=== PATIENT | male | born 1940 | race Caucasian/White ===

== ENCOUNTER 2020-04-30 10:59 | Observation (INO) ==
--- OUTSIDE RECORDS SUMMARY | 2020-04-30 11:02 | External Medical Summary | Continuity of Care Document ---
:1940 Author Name Lev Gallagher, Provider Address Unavailable Unavailable , Care Team Providers Name Role Phone Ernie Santana PA-C Unavailable [email or web address] Bakari MONDRAGON Unavailable [email or web address] Nayeli JONES Unavailable [email or web address] Marlin Lainez M.D. Unavailable [email or web address] [email or web address] Kenroy LOAIZA Unavailable Unavailable Unavailable Unavailable Unavailable Problems Dizziness (780.4) (R42) Gout (274.9) (M10.9) Iron deficiency (280.9) (E61.1) Anemia (285.9) (D64.9) Abnormal CT scan (793.99) (R93.89) Chronic obstructive pulmonary disease (496) (J44.9) Hip pain, left (719.45) (M25.552) Vitamin D deficiency (268.9) (E55.9) Abnormal laboratory test (796.4) (R89.9) Carotid bruit (785.9) (R09.89) Dermatitis (692.9) (L30.9) LVH (left ventricular hypertrophy) (429.3) (I51.7) Erectile dysfunction (607.84) (N52.9) Vision problems (V41.0) (H54.7) Headache (784.0) (R51) Osteoarthrosis (715.90) (M19.90) Esophageal reflux (530.81) (K21.9) Hyperglycemia (790.29) (R73.9) Hypertension (401.9) (I10) Dyslipidemia (272.4) (E78.5) 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 ALANNA Villegas Start: 22-Nov-2014 Quantity: 30 Refills: 5 cloNIDine HCl - 0.1 MG Oral Tablet; Take 1 tablet twic e a day. ALANNA Villegas Start: 03-Jul-2016 Quantity: 90 Refills: 3 Omeprazole 40 MG Oral Capsule Delayed Release; TAKE 1 CAPSULE Daily ALANNA Villegas Quantity: 90 Refills: 3 Furosemide 20 MG Oral Tablet; take 1 tablet by mouth e very other day GIBRAN Santana Start: 19-Mar-2018 Quantity: 30 Refills: 0 Aspirin 81 81 MG Oral Tablet Delayed Release; TAKE 2 TABLET Daily Refills: 0 dilTIAZem HCl ER Coated Beads 120 MG Ora l Capsule Extended Release 24 Hour; TAKE 1 CAPSULE DAILY. Elliott Lainez Start: 24-Jun-2017 Quantity: 30 Refills: 11 Advair Diskus 500-50 MCG/DOSE Inhalation Aerosol Powder Breath Activated; INHALE 1 PUFFS Twice daily KAREN Tyler 14 Inhaler Pack Quantity: 1 Refills: 5 Ipratropium-Albuterol 0.5-2.5 (3) MG/3ML Inhalation Solution; USE 1 VIAL IN NEBULIZER 4 TIMES DAILY KARNE Tyler Start: 01-Mar-2013 Quantity: 360 3 ML Plas Cont Refills: 5 Nitroglycerin 0.4 MG Sublingual Tablet S ublingual; DISSOLVE 1 TABLET UNDER THE TONGUE NEEDED FOR CHEST PAIN. ALANNA Villegas Start: 14-May-2012 Quantity: 25 Refills: 5 traMADol HCl - 50 MG Oral Tablet; TAKE 1 -2 TABLETS EVERY 12 HOURS NEEDED FOR PAIN. ALANNA Villegas Quantity: 120 Refills: 0 Diclofenac Sodium 1 % Transdermal Gel; APPLY 4 GRAMS T WICE A DAY ALANNA Villegas Start: 06-Aug-2015 Quantity: 1 100 GM Tube Refills: 5 Atorvastatin Calcium 80 MG Oral Tablet; TAKE 1 TABLET AT BEDTIME. ALANNA Villegas Start: 28-Jun-2015 Quantity: 90 Refills: 1 Allopurinol 300 MG Oral Tablet; Take 1 tablet by mouth daily. Elliott Lainez Start: 24-Jun-2017 Quantity: 30 Refills: 0 Triamcinolone Acetonide 0.025 % External Cream; APPLY SPARINGLY TO AFFECTED AREA(S) 2 TO 3 TIMES DAILY. ALANNA Villegas Start: 30-Oct-2014 Quantity: 2 15 GM Tube Refills: 3 Procedures History of Cath Stent Placement Status: Completed History of Tonsillectomy Status: Complet ed History of Back Surgery Status: Complete d History of Foot Surgery Status: Complete d History of Cath Stent 1 Mid-Right Coronary Artery Status: Completed History of Surgery For Abdominal Aortic Aneurysm Status: Completed Immunizations Fluzone High-Dose Intramuscular Suspension On: 03-Jul-2015 1 2:24 Lot #: [id number], [employer] Fluzone High-Dose Intramuscular Suspension On: 05-Aug-2016 1 3:47 Lot #: [id number], [employer]FI PA[employer]UR Fluzone High-Dose Intramuscular Suspension On: 07-Jul-2017 1 3:15 Lot #: [id number], [employer] Family History Brother Family history of Coronary Artery Disease Status: Active Family history of Acute Myocardial Infarction (V17.3) Status : Active Mother Family history of Carcinoma Of The Stomach (V16.0) Status: A ctive Father Family history of Stroke Syndrome (V17.1) Status: Active Social History - Smoking Status Ex-smoker Plan of Treatment Planned Observations Planned Goals not documented Results No Known Results Results not documented Encounters Appointment; Clifton Lainez M.D. 13-Jul-2018 13:00 Encounter Diagnosis: Problem not documented Appointment; Chele Villegas PA-C 24-May-2018 13:30 Encounter Diagnosis: Problem not documented
--- OUTSIDE RECORDS SUMMARY | 2020-04-30 11:03 | External Medical Summary | Continuity of Care Document ---
:1940 Author Name Lev Gallagher, Provider Address Unavailable Unavailable , Care Team Providers Name Role Phone Ernie Santana PA-C Unavailable [email or web address] Bakari MONDRAGON Unavailable [email or web address] Nayeli JONES Unavailable [email or web address] Marlin Lainez M.D. Unavailable [email or web address] Kenroy LOAIZA Unavailable Unavailable Unavailable Unavailable Unavailable Problems Esophageal reflux (530.81) (K21.9) Osteoarthrosis (715.90) (M19.90) Gout (274.9) (M10.9) Headache (784.0) (R51) Vision problems (V41.0) (H54.7) Erectile dysfunction (607.84) (N52.9) LVH (left ventricular hypertrophy) (429.3) (I51.7) Dizziness (780.4) (R42) Dermatitis (692.9) (L30.9) Carotid bruit (785.9) (R09.89) Abnormal laboratory test (796.4) (R89.9) Vitamin D deficiency (268.9) (E55.9) Hip pain, left (719.45) (M25.552) CAD (coronary artery disease) (414.00) (I25.10) 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 Elliott Lainez Start: 24-Jun-2017 Quantity: 30 Refills: 11 Furosemide 20 MG Oral Tablet; take 1 tablet by mouth e very other day GIBRAN Santana Start: 19-Mar-2018 Quantity: 30 Refills: 0 Advair Diskus 500-50 MCG/DOSE Inhalation Aerosol Powder Breath Activated; INHALE 1 PUFFS Twice daily KAREN Tyler 14 Inhaler Pack Quantity: 1 Refills: 5 traMADol HCl - 50 MG Oral Tablet; TAKE 1 -2 TABLETS EVERY 12 HOURS NEEDED FOR PAIN. ALANNA Villegas Quantity: 120 Refills: 0 Meclizine HCl - 25 MG Oral Tablet; TAKE 1/2 TO 1 TABLET BY MOUTH EVERY 6 HOURS NEEDED ALANNA Villegas Start: 21-Aug-2015 Quantity: 30 Refills: 0 Omeprazole 40 MG Oral Capsule Delayed Release; TAKE 1 CAPSULE Daily ALANNA Villegas Quantity: 90 Refills: 3 Nitroglycerin 0.4 MG Sublingual Tablet S ublingual; DISSOLVE 1 TABLET UNDER THE TONGUE NEEDED FOR CHEST PAIN. ALANNA Villegas Start: 14-May-2012 Quantity: 25 Refills: 5 Ipratropium-Albuterol 0.5-2.5 (3) MG/3ML Inhalation Solution; USE 1 VIAL IN NEBULIZER 4 TIMES DAILY KAREN Tyler Start: 01-Mar-2013 Quantity: 360 3 ML Plas Cont Refills: 5 Triamcinolone Acetonide 0.025 % External Cream; APPLY SPARINGLY TO AFFECTED AREA(S) 2 TO 3 TIMES DAILY. ALANNA Villegas Start: 30-Oct-2014 Quantity: 2 15 GM Tube Refills: 3 Vitamin D 1000 UNIT TABS; TAKE 1 TABLET DAILY. ALANNA Villegas Start: 22-Nov-2014 Quantity: 30 Refills: 5 Atorvastatin Calcium 80 MG Oral Tablet; TAKE 1 TABLET AT BEDTIME. ALANNA Villegas Start: 28-Jun-2015 Quantity: 90 Refills: 1 Allopurinol 300 MG Oral Tablet; Take 1 tablet by mouth daily. Elliott Lainez Start: 24-Jun-2017 Quantity: 30 Refills: 0 Diclofenac Sodium 1 % Transdermal Gel; APPLY 4 GRAMS T WICE A DAY ALANNA Villegas Start: 06-Aug-2015 Quantity: 1 100 GM Tube Refills: 5 cloNIDine HCl - 0.1 MG Oral Tablet; Take 1 tablet twic e a day. ALANNA Villegas Start: 03-Jul-2016 Quantity: 90 Refills: 3 Procedures History of Cath Stent Placement Status: Completed History of Tonsillectomy Status: Complet ed History of Back Surgery Status: Complete d History of Foot Surgery Status: Complete d History of Cath Stent 1 Mid-Right Coronary Artery Status: Completed History of Surgery For Abdominal Aortic Aneurysm Status: Completed Immunizations Fluzone High-Dose Intramuscular Suspension On: 03-Jul-2015 1 2:24 Lot #: [id number], [employer] Fluzone High-Dose Intramuscular Suspension On: 05-Aug-2016 1 3:47 Lot #: [id number], [employer] PA[employer]UR Fluzone High-Dose Intramuscular Suspension On: 07-Jul-2017 1 3:15 Lot #: [id number], [employer] PA[employer]UR Family History Brother Family history [...]
[2020-04-30] MEDS ORDERED: ASPIRIN CHEW 324 MG PO STA (11:18)
[2020-04-30 11:34] LABS: Basophils # (auto) 0.02 K/uL (0-0.2); Basophils % (auto) 0.3 %; Eosinophils # (auto) 0.15 K/uL (0-0.5); Eosinophils % (auto) 2.3 %; Hematocrit (blood only) 45.4 % (42-52); Hemoglobin 14.2 g/dL (14.0-18.0); Immature Granulocytes # (auto) 0.05 K/uL (0.00-0.02); Immature Granulocytes % (auto) 0.8 %; Lymphocytes # (auto) 1.03 K/uL (1.2-3.4); Lymphocytes % (auto) 15.8 %; Mean Corpuscular Hemoglobin 26.6 pg (25-34); Mean Corpuscular Hgb Conc 31.3 g/dL (32-36); Mean Corpuscular Volume 85.2 fL (80-100); Mean Platelet Volume 10.4 fL (7.4-10.4); Monocytes # (auto) 0.59 K/uL (0.11-0.59); Neutrophils # (auto) 4.68 K/uL (1.4-6.5); Neutrophils % (auto) 71.8 %; Platelet Count 249 K/uL (130-400); RDW Coefficient of Variation 14.2 % (11.5-14.5); RDW Standard Deviation 44.6 fL (36.4-46.3); Red Blood Count 5.33 M/uL (4.7-6.1); White Blood Count 6.52 K/uL (4.8-10.8)
--- NOTE | 2020-04-30 11:35 | XRay Report ---
SINGLE VIEW CHEST CLINICAL HISTORY: Atypical chest pain. FINDINGS: 2 AP, portable, upright chest radiographs are compared to study dated 12/11/2015. The examin ation is degraded by portable technique and patient rotation. The heart is top normal for projection noting atherosclerotic calcification of the thoracic aorta. There are scattered calcified granuloma. Mild scarring/atelectasis is seen at the lung bases. No airspace consolidation or large pleural effus ion is identified. No pneumothorax is seen. The skeletal structures are osteopenic. The bony thorax i s grossly intact. IMPRESSION: No active disease in the chest. ACT 112: Negative or not required by law. Electronically signed by: Rusty Malik M.D. 04/30/2020 11:34 AM
[2020-04-30 11:48] LABS: INR 1.1 (0.9-1.1); Partial Thromboplastin Ratio 1.1; Partial Thromboplastin Time 31.5 Seconds (21.0-31.0); Prothrombin Time 11.6 Seconds (9.0-12.0)
--- NOTE | 2020-04-30 11:48 | CT Scan Report ---
CT SCAN OF THE BRAIN WITHOUT IV CONTRAST CLINICAL HISTORY: Generalized weakness. COMPARISON STUDY: CT of the brain dated 01/09/2016. TECHNIQUE: Unenhanced axial CT scan of the brain is performed from the vertex to the skull base. A do se lowering technique was utilized adhering to the principles of ALARA. CT DOSE: 537.48 mGy.cm FINDINGS: Brain parenchyma: There are age-related involutional changes noting moderate patchy subcortical and periventricular microangiopathic change. There is no hemorrhage, mass effect, or evidence of acute te rritorial ischemia by CT criteria. A small chronic lacunar infarct is noted in the right cerebellar h emisphere. Cabrera-white matter differentiation is preserved. No extra-axial fluid collection is seen. Ventricles, sulci, cisterns: Prominent secondary to involutional change. Intracranial vasculature: There is atherosclerotic calcification of the cavernous carotid and vertebr al arteries. Calvarium: Unremarkable. Sinuses and mastoids: The visualized paranasal sinuses are clear. The mastoid air cells are well pneu matized. Orbits: The bony orbits are grossly intact. There are bilateral ocular lens implants. Small metallic foreign bodies are seen in the region of the right orbit. IMPRESSION: There is no hemorrhage, mass effect, or evidence of acute territorial ischemia by CT giulia walker. ACT 112: Negative or not required by law. Electronically signed by: Rusty Malik M.D. 04/30/2020 11:47 AM
[2020-04-30 11:56] LABS: Alanine Aminotransferase 27 U/L (12-78); Albumin Level 4.1 gm/dl (3.4-5.0); Aspartate Aminotransferase 25 U/L (15-37); BUN Creatinine Ratio 11.2 (10-20); Blood Urea Nitrogen 13 mg/dl (7-18); Calcium 8.5 mg/dl (8.5-10.1); Carbon Dioxide 29 mmol/L (21-32); Chloride 104 mmol/L (98-107); Creatinine Clr Calc Pharmacy 55.8 ml/min; Est GFR (African American) 68.6; Est GFR (Non-African American) 59.2; Glucose 119 mg/dl (70-99); Lipase 77 U/L (73-393); Sodium 140 mmol/L (136-145)
[2020-04-30 12:01] LABS: Albumin Globulin Ratio 1.1 (0.9-2); Alkaline Phosphatase 187 U/L (45-117); Bilirubin,Total 0.6 mg/dl (0.2-1); Globulin 3.8 gm/dl (2.5-4.0); Total Protein 7.9 gm/dl (6.4-8.2); Troponin I < 0.015 ng/ml (0-0.045)
--- NOTE | 2020-04-30 12:10 | Emergency Department Note ---
Impression & Plan Chest pain, STOREY (dyspnea on exertion), Weakness ED Provider Note NAME: ION FU SR AGE: 79 SEX: M : 1940 ARRIVES VIA: Walk-In INFORMANT: Patient, ED PROVIDER(S): Mike Hardwick DO CHIEF COMPLAINT: Shortness of breath HPI: The patient is a 79-year-old male who presented to the emergency department for an evaluation of difficulty breathing. The patient states that he was having symptoms over the weekend. He was doing some yard work 2 days ago. He states he did not have any symptoms at that time. Yesterday he started having episodes of shortness of breath. Today while he was ambulating he started having dyspnea on exertion. The patient had similar episodes in the past which were related to acute coronary syndrome. He denies having any nausea or vomiting. He states he is also been having lightheadedness. The patient did not have any specific chest pain. The patient states he has not been seen by his primary care physician but instead came to the emergency department for further evaluation. He states his symptoms are significantly improved at rest. ROS: See above HPI for pertinent positives & negatives. A total of 10 systems reviewed and were otherwise negative. PAST MEDICAL HISTORY: See Below PAST SURGICAL HISTORY: See Below FAMILY HISTORY: See Below SOCIAL HISTORY: See Below HOME MEDICATIONS: See Below ALLERGIES: See Below VITALS: See Below PHYSICAL EXAMINATION: GENERAL: Patient is awake alert in no acute distress patient is resting comfortably and showing no signs of anxiety EYES: The conjunctivae are clear. The pupils are round and reactive. EARS, NOSE, MOUTH AND THROAT: The nose is without any evidence of any deformity. NECK: The neck is nontender and supple. RESPIRATORY: Diminished breath sounds are noted in the left lung field. There was no tachypnea or conversational dyspnea. CARDIOVASCULAR: Regular rate and rhythm was noted to auscultation. Systolic murmur was suggested. GASTROINTESTINAL: The abdomen is soft. Abdomen is nontender. MUSCULOSKELETAL/EXTREMITIES: There is no evidence of gross deformity full range of motion is noted in the hips and shoulders. SKIN: There is no obvious evidence of any rash. Pedal edema was noted bi laterally. NEUROLOGIC: Patient is awake alert and oriented x3. Strength was symmetric. There is no facial droop. MEDICAL DECISION MAKING: The patient is a 79-year-old male who presented to the emergency department with a family member for an evaluation of shortness of breath. The patient has been complaining of dyspnea on exertion as well as weakness. The patient has had similar episodes in the past which were related to his coronary artery disease. I discussed the patient's laboratory and radiographic studies with him. I also discussed the limitations of the emergency department work-up for chest pain with him. Ultimately given the patient's presentation I feel he may be a candidate for further inpatient management and work-up for possible acute coronary syndrome. For this reason I will discuss his case with the on-call [facility] group. The patient was treated with aspirin. Upon reevaluation he was asymptomatic. Triage Nursing notes reviewed. Prior medical records reviewed Vital Signs: reviewed and remarkable for elevated blood pressure. Differential diagnosis: Cardiac ischemia, aortic dissection, pulmonary embolism, pneumothorax, pneumonia, pericarditis, myocarditis, esophageal rupture, GERD, cholecystitis, pancreatitis, musculoskeletal, as well as other pathologies. ER treatment provided: See below Diagnostics interpreted by me: ECG: EKG was obtained in the emergency department. My interpretation is sinus bradycardia 53 bpm. There is no ectopy. Left bundle branch block pattern was suggested. There was inferior and low lateral ST segment abnormalities noted. This was compared to a tracing from December 11, 2015. No significant changes were noted. Cardiac Monitoring: An order was placed for continuous cardiac monitoring. The monitor shows a rate of 55 bpm with sinus cardia rhythm. Laboratory studies: [As stated above and show below.] Imaging studies: [See below] Consultation(s): 1225: Dr. Nolasco with [facility] was notified about the patient. Past Med/Surg History Medical History History of MN (myocardial infarction) Vertigo Surgical History History of back surgery History of intravascular stent placement Social History Smoking Status: Never smoker Feels Safe at Home: Yes Allergies Allergies Allergy/AdvReac Type Severity Reaction Status Date / Time No Known Allergies Allergy Unknown Verified 04/30/20 11:54 Home Meds Home Medications Medication Instructions Recorded Confirmed atorvastatin 80 mg PO HS 04/30/20 04/30/20 diltiazem HCl 120 mg PO HS 04/30/20 04/30/20 furosemide 20 mg PO Q2D 04/30/20 04/30/20 metoprolol tartrate 25 mg PO BID 04/30/20 04/30/20 omeprazole 40 mg PO HS 04/30/20 04/30/20 tamsulosin 0.4 mg PO QAM 04/30/20 04/30/20 tramadol 50 mg PO Q6H PRN 04/30/20 04/30/20 Previous Rx's Medication Instructions Recorded ipratropium 0.5 mg-albuterol 3 mg 3 ml INH QID PRN #180 ml 02/01/20 (2.5 mg base)/3 mL nebulization soln Results & Data (ED) Vital Signs Vital Signs - 24 hr 04/30/20 11:03 04/30/20 11:19 04/30/20 11:27 Temperature 36.6 C Temperature Source Oral Pulse Rate 60 57 L 59 L Pulse Rate from SpO2 Sensor 58 L Respiratory Rate 18 17 17 Blood Pressure 172/90 H 168/93 H Blood Pressure Mean 117 101 Pulse Oximetry 97 97 96 Oxygen Delivery Method Room Air Room Air Room Air Sepsis Recent Fever Within 48 Hours No Sepsis New/Unexplained Change in Mental Status No Sepsis Action Taken by Nursing No Action Required 04/30/20 11:30 04/30/20 11:32 04/30/20 12:00 Temperature Temperature Source Pulse Rate 53 L 56 L 53 L Pulse Rate from SpO2 Sensor 53 L 56 L 53 L Respiratory Rate 18 20 15 Blood Pressure 174/81 H 170/83 H Blood Pressure Mean 128 105 Pulse Oximetry 97 98 96 Oxygen Delivery Method Room Air Room Air Room Air Sepsis Recent Fever Within 48 Hours Sepsis New/Unexplained Change in Mental Status Sepsis Action Taken by Residential Medications Current Medication List: was personally reviewed by me Laboratory Data Attestation: I reviewed the patient's lab results. Result diagrams: 04/30/20 11:23 04/30/20 11:23 Lab Results 04/30/20 04/30/20 04/30/20 Range/Units 11:23 11:23 11:23 WBC 6.52 (4.8-10.8) K/uL RBC 5.33 (4.7-6.1) M/uL Hgb 14.2 (14.0-18.0) g/dL Hct 45.4 (42-52) % MCV 85.2 (80-100) fL MCH 26.6 (25-34) pg MCHC 31.3 L (32-36) g/dL RDW Std Deviation 44.6 (36.4-46.3) fL RDW Coeff of Gibson 14.2 (11.5-14.5) % Plt Count 249 (130-400) K/uL MPV 10.4 (7.4-10.4) fL Immature Gran % (Auto) 0.8 % Neut % (Auto) 71.8 % Lymph % (Auto) 15.8 % [place] % (Auto) 9.0 % Eos % (Auto) 2.3 % Baso % (Auto) 0.3 % Neut # (Auto) 4.68 (1.4-6.5) K/uL Lymph # (Auto) 1.03 L (1.2-3.4) K/uL [place] # (Auto) 0.59 (0.11-0.59) K/uL Eos # (Auto) 0.15 (0-0.5) K/uL Baso # (Auto) 0.02 (0-0.2) K/uL Immature Gran # (Auto) 0.05 H (0.00-0.02) K/uL PT 11.6 (9.0-12.0) Seconds INR 1.1 (0.9-1.1) APTT 31.5 H (21.0-31.0) Seconds PTT Ratio 1.1 Sodium 140 (136-145) mmol/L Potassium 4.0 (3.5-5.1) mmol/L Chloride 104 (98-107) mmol/L Carbon Dioxide 29 (21-32) mmol/L Anion Gap 7.0 (3-11) BUN 13 (7-18) mg/dl Creatinine 1.18 (0.6-1.4) mg/dl Est Cr Clr Drug Dosing 55.8 ml/min Est GFR ( Amer) 68.6 Est GFR (Non-Af Amer) 59.2 BUN/Creatinine Ratio 11.2 (10-20) Glucose 119 H (70-99) mg/dl Calcium 8.5 (8.5-10.1) mg/dl Total Bilirubin 0.6 (0.2-1) mg/dl AST 25 (15-37) U/L ALT 27 (12-78) U/L Alkaline Phosphatase 187 H (45-117) U/L Troponin I < 0.015 (0-0.045) ng/ml Total Protein 7.9 (6.4-8.2) gm/dl Albumin 4.1 (3.4-5.0) gm/dl Globulin 3.8 (2.5-4.0) gm/dl Albumin/Globulin Ratio 1.1 (0.9-2) Lipase 77 (73-393) U/L Administered Medications Discontinued Medications Aspirin (Aspirin Chew 324 Mg) 324 mg PO NOW STA Stop: 04/30/20 11:19 Last Admin: 04/30/20 11:26 Dose: 324 mg Documented by: [id number] Imaging Data Radiologist's Impression: CT SCAN OF THE BRAIN WITHOUT IV CONTRAST CLINICAL HISTORY: Generalized weakness. COMPARISON STUDY: CT of the brain dated 01/09/2016. TECHNIQUE: Unenhanced axial CT scan of the brain is performed from the vertex to the skull base. A dose lowering technique was utilized adhering to the principles of ALARA. CT DOSE: 537.48 mGy.cm FINDINGS: Brain parenchyma: There are age-related involutional changes noting moderate patchy subcortical and periventricular microangiopathic change. There is no hemorrhage, mass effect, or evidence of acute territorial ischemia by CT criteria. A small chronic lacunar infarct is noted in the right cerebellar hemisphere. Cabrera-white matter differentiation is preserved. No extra-axial fluid collection is seen. Ventricles, sulci, cisterns: Prominent secondary to involutional change. Intracranial vasculature: There is atherosclerotic calcification of the cavernous carotid and vertebral arteries. Calvarium: Unremarkable. Sinuses and mastoids: The visualized paranasal sinuses are clear. The mastoid air cells are well pneumatized. Orbits: The bony orbits are grossly intact. There are bilateral ocular lens implants. Small metallic foreign bodies are seen in the region of the right orbit. IMPRESSION: There is no hemorrhage, mass effect, or evidence of acute territorial ischemia by CT criteria. ACT 112: Negative or not required by law. Electronically signed by: Rusty Malik M.D. 04/30/2020 11:47 AM Dictated: 04/30/20 1143 Transcribed: 04/30/20 1143 SINGLE VIEW CHEST CLINICAL HISTORY: Atypical chest pain. FINDINGS: 2 AP, portable, upright chest radiographs are compared to study dated 12/11/2015. The examination is degraded by portable technique and patient rotation. The heart is top normal for projection noting atherosclerotic calcification of the thoracic aorta. There are scattered calcified granuloma. Mild scarring/atelectasis is seen at the lung bases. No airspace consolidation or large pleural effusion is identified. No pneumothorax is seen. The skeletal structures are osteopenic. The bony thorax is grossly intact. IMPRESSION: No active disease in the chest. ACT 112: Negative or not required by law. Electronically signed by: Rusty Malik M.D. 04/30/2020 11:34 AM Dictated: 04/30/20 1133 Transcribed: 04/30/20 1133 Blood Pressure Blood Pressure Findings: Elevated blood pressure Blood Pressure Disposition: further management by hospitalist Discharge Plan Visit Data Chief Complaint: Weakness Stated Complaint: fatigue, confusion, hx heart attack ED Provider: Mike Hardwick Discharge Problem: Chest pain, STOREY (dyspnea on exertion), Weakness Patient Disposition: Being Evaluated by Hospitalist Condition: Good Forms Stand Alone Forms: [facility] [employer] Prescriptions Prescriptions: No Action ipratropium-albuterol 0.5 mg-3 mg(2.5 mg base)/3 mL solution for nebulization 3 ml INH QID PRN (Reason: wheezing) Qty: 180 RF: 0 atorvastatin 80 mg tablet 80 mg PO HS RF: 0 omeprazole 40 mg capsule,delayed release(DR/EC) 40 mg PO HS RF: 0 tramadol 50 mg tablet 50 mg PO Q6H PRN (Reason: Pain) RF: 0 tamsulosin 0.4 mg capsule 0.4 mg PO QAM RF: 0 diltiazem HCl 120 mg capsule,extended release 24hr 120 mg PO HS RF: 0 furosemide 20 mg tablet 20 mg PO Q2D RF: 0 metoprolol tartrate 25 mg tablet 25 mg PO BID RF: 0 Referrals Referrals: Patricio Prajapati MD [Primary Care Provider] -
[2020-04-30] MEDS ORDERED: ACETAMINOPHEN 325 MG TAB PO PRN (13:18)
[2020-04-30] MEDS ORDERED: ALBUT/IPRATROP 3MG/0.5MG NEB 3 ML VIAL INH PRN (13:22)
[2020-04-30] MEDS ORDERED: MECLIZINE HCL 25 MG TAB PO PRN (13:23)
[2020-04-30] MEDS ORDERED: TRAMADOL HCL 50 MG TABLET PO PRN (13:26)
--- NOTE | 2020-04-30 13:28 | History & Physical Report ---
Date of Service April 30, 2020 Assessment & Plan (1) Chest pain: CAD s/p single stent in 2004 Hypertension -This is a 79 year old male who recently transferred his primary care to Dr. Patricio Prajapati of [facility] primary care on 04/26/2020 and review of the notes that patient was started on tamsulosin on that visit because of history of enuresis, and he reported to his family that while grocery shopping on Thursday04/27/2020 that he felt chest discomfort. Patient is a poor historian and with auditory impairments and history gathering was assisted by his step-daughter Teri [phone] at the bedside and that the symptoms continued to the next day. Patient denies that the chest discomfort is an acute pain. He cannot explain whether the pain was radiating or other symptoms. He could not tell me how he was feeling on the following days but his step-daughter said that he expressed to them that he was not feeling well and so patient was brought to emergency room on 04/30/2020. The ED physician ordered 324 mg aspirin. The ED physician does not see any acute changes on current EKG and that initial troponin negative. However the ED provider would like hospitalist to help with cardiac workup because of patient's past medical history of cardiac disease. Review of patient's 04/26/2020 primary care notes that describes patient with PMH of Hypertension history of cerebral aneurysm, Abdominal Aortic Aneurysm s/p repair, mild COPD -trend the troponins -obtain resting echocardiogram -consult cardiology in case any need for stress testing -continue home medication of atorvastatin 80 mg qhs, Diltiazem 120 mg qHS, metoprolol tartrate 25 mg BID -added amlodipine 10 mg daily for better blood pressure control -check procalictonin, BNP, no fevers but because of nonspecific symptom from the history reported will check UA and blood cultures Gastroesophageal reflux diseas -continue protonics History of enuresis -continue tamsulosin for now, although this is a new outpatient medication it is unlikely to be cause of symptoms Chronic obstructive pulmonary disease -04/30/2020: CXR "The heart is top normal for projection noting atherosclerotic calcification of the thoracic aorta. There are scattered calcified granuloma. Mild scarring/atelectasis is seen at the lung bases. No airspace consolidation or large pleural effusion is identified. No pneumothorax is seen. The skeletal structures are osteopenic. The bony thorax is grossly intact. IMPRESSION: No active disease in the chest." -quit smoking many years ago -does not appear to be acute COPD exacerbation, breathing on room air -prn duonebs as needed Chronic Kidney Disease stage III -monitor the renal function other health history reported to be history of cerebral aneurysm, Abdominal Aortic Aneurysm s/p repair DVT prophylaxis Full Code Status step-daughter Teri [phone] Venegas will be following the patient starting on 05/01/2020 History of Present Illness This is a 79 year old male who recently transferred his primary care to Dr. Patricio Prajapati of [facility] care on 04/26/2020 and review of the notes that patient was started on tamsulosin on that visit because of history of enuresis, and he reported to his family that while grocery shopping on Thursday04/27/2020 that he felt chest discomfort. Patient is a poor historian and with auditory impairments and history gathering was assisted by his step-daughter Teri [phone] at the bedside and that the symptoms continued to the next day. Patient denies that the chest discomfort is an acute pain. He cannot explain whether the pain was radiating or other symptoms. He could not tell me how he was feeling on the following days but his step-daughter said that he expressed to them that he was not feeling well and so patient was brought to emergency room on 04/30/2020. The ED physician ordered 324 mg aspirin. The ED physician does not see any acute changes on current EKG and that initial troponin negative. However the ED provider would like hospitalist to help with cardiac workup b ecause of patient's past medical history of cardiac disease. Review of patient's 04/26/2020 primary care notes that describes patient with PMH of Hypertension, CAD s/p single stent in 2003, cerebral aneurysm, AAA s/p repair, mild COPD Family Health History and Allergies: Patient's step-daughter corroborates with patient of no known family health history of medical problems, and that patient does not have any known drug allergies to food or medications Primary Care Provider: Patricio Prajapati MD Allergies Allergy/AdvReac Type Severity Reaction Status Date / Time No Known Allergies Allergy Unknown Verified 04/30/20 11:54 Home Medications Home Medications Medication Instructions Recorded Confirmed Type ipratropium 0.5 mg-albuterol 3 mg 3 ml INH QID PRN #180 ml 02/01/20 04/30/20 Rx (2.5 mg base)/3 mL nebulization soln atorvastatin 80 mg PO HS 04/30/20 04/30/20 History diltiazem HCl 120 mg PO HS 04/30/20 04/30/20 History furosemide 20 mg PO Q2D 04/30/20 04/30/20 History metoprolol tartrate 25 mg PO BID 04/30/20 04/30/20 History omeprazole 40 mg PO HS 04/30/20 04/30/20 History tamsulosin 0.4 mg PO QAM 04/30/20 04/30/20 History tramadol 50 mg PO Q6H PRN 04/30/20 04/30/20 History Past Med/Surg History Medical History History of [place] (myocardial infarction) Vertigo Surgical History History of back surgery History of intravascular stent placement Social History Smoking Status: Former smoker Hx Substance Use: No Preferred Language: Belgian Communication Ability: Effective Pharmacy Cashier Required: No Beliefs That Will Affect Care: None Current Living Situation: Spouse Other Information That Helps Us Care for You: No Feels Safe at Home: Yes Safety Concerns: Feels Safe At This Time Review of Systems Review of Systems: All systems reviewed & are unremarkable except as noted in Subjective Physical Exam Constitutional: comfortable Eyes: PERRL, conjunctivae normal, anicteric sclerae EOM intact bilaterally ENMT: external ear and nose normal, oropharynx normal Neck: trachea midline, no thyromegaly normal visual inspection Respiratory: normal respiratory effort, lungs clear to auscultation Cardiovascular: Rate/Rhythm: + bradycardic Gastrointestinal (Abdomen): normal bowel sounds, soft, nontender, no hepatosplenomegaly Musculoskeletal: Head/Neck/Chest: normocephalic and head atraumatic Neurologic: moves all extremities auditory impairments Psychiatric: Orientation: alert and cooperative Results & Data Results & Data ([facility]) Vital Signs (Past 12 Hours) Vital Signs Temp Pulse Resp BP Pulse Ox 04/30/20 13:01 60 18 161/87 H 98 04/30/20 13:00 53 L 17 04/30/20 12:30 44 L 12 156/78 H 96 04/30/20 12:00 53 L 15 170/83 H 96 04/30/20 11:32 56 L 20 174/81 H 98 04/30/20 11:30 53 L 18 97 04/30/20 11:27 59 L 17 168/93 H 96 04/30/20 11:19 57 L 17 97 04/30/20 11:03 36.6 C 60 18 172/90 H 97 Code Status & VTE Plan VTE Prophylaxis Plan VTE Prophylaxis will be ordered: Yes (1) Chest pain Chest pain type: unspecified Qualified Code(s): R07.9 - Chest pain, unspecified
[2020-04-30 14:10] LABS: Magnesium 2.3 mg/dl (1.8-2.4); Thyroid Stimulating Hormone 3.18 uIu/ml (0.300-4.500)
[2020-04-30] MEDS ORDERED: AMLODIPINE BESYLATE 5 MG TAB PO ONE (15:46)
[2020-04-30 16:23] LABS: Appearance Urine Clear (Clear); Bilirubin Urine Negative (Negative); Blood Urine Negative (Negative); Color Urine Yellow; Glucose Urine UA Negative (Negative); Ketones Urine Negative (Negative); Leukocyte Esterase Urine Negative (Negative); Nitrite Urine Negative (Negative); Protein Urine Negative (Negative); Specific Gravity Urine 1.006 (1.000-1.030); Urobilinogen Urine Negative (Negative); pH Urine 6.5 (4.5-7.5)
[2020-04-30 18:21] LABS: C Reactive Protein < 0.29 mg/dl (0-0.29); NT Pro B Type Natriuretic Pept 402 pg/ml (0-1800); Troponin I < 0.015 ng/ml (0-0.045)
[2020-04-30] MEDS: HEPARIN SOD 5,000 UNIT/0.5 ML VIAL SQ SCH (20:52)
[2020-04-30] MEDS: METOPROLOL TARTRATE 25 MG TAB PO SCH (20:52)
[2020-04-30] MEDS ORDERED: ATORVASTATIN 40 MG TAB PO SCH (21:00)
[2020-04-30] MEDS ORDERED: dilTIAZem HCL 120 MG CAPCR PO SCH (21:00)
--- NOTE | 2020-04-30 21:14 | Electrocardiogram Report ---
Test Reason : Blood Pressure : / mmHG Vent. Rate : 053 BPM Atrial Rate : 053 BPM P-R Int : 178 ms QRS Dur : 144 ms QT Int : 528 ms P-R-T Axes : 047 097 008 degrees QTc Int : 495 ms Sinus bradycardia Rightward axis Non-specific intra-ventricular conduction block Abnormal ECG When compared with ECG of 11-DEC-2015 16:49, T wave inversion now evident in Inferior leads Confirmed by Tavo Gillespie ([id number]) on 04/30/2020 9:13:38 PM Referred By: REFERRED SELF Confirmed By:Tavo Gillespie
[2020-05-01 07:35] LABS: Magnesium 2.3 mg/dl (1.8-2.4); Phosphorus 2.7 mg/dl (2.5-4.9); Troponin I < 0.015 ng/ml (0-0.045)
[2020-05-01] MEDS ORDERED: TAMSULOSIN HCL 0.4 MG CAP PO SCH (09:00)
[2020-05-01] MEDS ORDERED: AMLODIPINE BESYLATE 5 MG TAB PO SCH (09:00)
[2020-05-01] MEDS ORDERED: FUROSEMIDE 20 MG TAB PO SCH (09:00)
[2020-05-01] MEDS: HEPARIN SOD 5,000 UNIT/0.5 ML VIAL SQ SCH (09:48)
[2020-05-01] MEDS: METOPROLOL TARTRATE 25 MG TAB PO SCH (09:48)
--- NOTE | 2020-05-01 12:40 | Hospitalist Progress Note ---
Date of Service May 01, 2020 Assessment & Plan (1) STOREY (dyspnea on exertion): Complains to have generalized weakness with dyspnea on exertion Likely secondary to progression of COPD without any acute exacerbation Denies any respiratory symptoms at rest We will continue his current medications (2) Chest pain: Admitted with questionable chest pain Patient denies any chest pain, palpitation, shortness of breath at rest Has history of CAD with status post stent placement 2003 Cardiac enzymes and EKG have been unremarkable Echocardiogram of the heart showed-moderate concentric LVH, small sized inferior wall motion abnormality with akinesis of the basal segment of the inferior wall, LV systolic function is normal with EF 55 to 60%, aortic valve sclerosis mild without significant stenosis, moderate mitral annular calcification, mild MR and grade 1 diastolic dysfunction Appreciate cardiology input and recommendation He wants to see his billposter Dr. mckeon as an outpatient (3) History of [place] (myocardial infarction): As above no acute symptoms (4) COPD (chronic obstructive pulmonary disease): History of COPD Stable (5) CKD (chronic kidney disease), stage III: Remains stable PT and OT evaluation Possible discharge this afternoon/tomorrow Admission and Anticipated Discharge Date Admission Date: April 30, 2020 Subjective 05/01/2020 The patient was seen and examined in medical telemetry unit He is very deaf and was admitted with chest pain previously denies Complains [employer] generalized weakness Otherwise denies any other significant symptoms Review of Systems Review of Systems: All systems reviewed and are unremarkable except as noted below Respiratory: no cough and no dyspnea Cardiovascular: no chest pain and no palpitations Musculoskeletal: no joint pain Neurologic: + generalized weakness and + problem reported (Has moderate deafness); no confusion Physical Exam Physical Exam: Sitting at the edge of the bed without any apparent distress Constitutional: well developed, well nourished and + obese; no acute distress and not ill appearing Eyes: PERRL, conjunctivae normal, anicteric sclerae ENMT: external ear and nose normal, oropharynx normal Neck: trachea midline, no thyromegaly Respiratory: normal respiratory effort Auscultation: lungs clear to a uscultation bilaterally Cardiovascular: Rate/Rhythm: regular rate and regular rhythm Heart Sounds: + murmur (2/6 ESM over precordium) Gastrointestinal (Abdomen): Inspection/Auscultation: abdomen normal to inspection and normal bowel sounds; abdomen not distended Percussion/Palpation: abdomen soft Musculoskeletal: No acute arthritis involving any joints Neurologic: moves all extremities; no focal motor deficits Speech / Cognition: normal speech Results & Data Results & Data ([facility]) Vital Signs (Past 12 Hours) Vital Signs Temp Pulse Pulse Pulse Resp BP Pulse Ox 05/01/20 11:23 36.9 C 55 L 18 167/81 H 95 05/01/20 09:40 66 05/01/20 08:00 57 L 05/01/20 07:02 36.8 C 54 L 18 145/91 H 94 05/01/20 03:00 36.8 C 81 18 122/69 95 Laboratory Results Cardiac Enzymes 04/30/20 04/30/20 05/01/20 Range/Units 17:39 22:52 06:40 Troponin I < 0.015 < 0.015 < 0.015 (0-0.045) ng/ml Urine 04/30/20 Range/Units 16:10 Urine Color Yellow Urine Appearance Clear (Clear) Urine pH 6.5 (4.5-7.5) Ur Specific [place] 1.006 (1.000-1.030) Urine Protein Negative (Negative) Urine Glucose (UA) Negative (Negative) Medications Administered Current Inpatient Medications Acetaminophen (Acetaminophen 325 Mg Tab) 325 mg PO Q6H PRN PRN Reason: Pain or Fever Stop: 05/30/20 13:29 Albuterol (Albut/Ipratrop 3mg/0.5mg Neb 3 Ml Vial) 3 ml INH QID PRN PRN Reason: wheezing Stop: 05/30/20 13:21 Amlodipine Besylate (Amlodipine Besylate 5 Mg Tab) 10 mg PO [facility] Stop: 05/31/20 08:59 Last Admin: 05/01/20 09:49 Dose: 10 mg Documented by: Atorvastatin Calcium (Atorvastatin 40 Mg Tab) [address] [facility] Stop: 05/30/20 20:59 Last Admin: 04/30/20 20:52 Dose: 80 mg Documented by: Diltiazem HCl (Diltiazem Hcl 120 Mg Capcr) [address] [facility] Stop: 05/30/20 20:59 Last Admin: 04/30/20 20:51 Dose: 120 mg Documented by: Furosemide (Furosemide 20 Mg Tab) 20 mg PO Q2D@0900 [facility] Stop: 05/31/20 08:59 Last Admin: 05/01/20 09:48 Dose: 20 mg Documented by: Heparin Sodium (Porcine) (Heparin Sod 5,000 Unit/0.5 Ml Vial) 5,000 units SQ Q12 [facility] Stop: 05/30/20 20:59 Last Admin: 05/01/20 09:48 Dose: 5,000 units Documented by: Meclizine HCl (Meclizine Hcl 25 Mg Tab) 25 mg PO Q6H PRN PRN Reason: Nausea And Vomiting Stop: 05/30/20 13:22 Metoprolol Tartrate (Metoprolol Tartrate 25 Mg Tab) 25 mg PO BID [facility] Stop: 05/30/20 20:59 Last Admin: 05/01/20 09:48 Dose: 25 mg Documented by: Tamsulosin HCl (Tamsulosin Hcl 0.4 Mg Cap) 0.4 mg PO QAM [facility] Stop: 05/31/20 08:59 Last Admin: 05/01/20 09:48 Dose: 0.4 mg Documented by: Tramadol HCl (Tramadol Hcl 50 Mg Tablet) 50 mg PO Q12H PRN PRN Reason: moderate pain Stop: 05/30/20 13:29 (1) Chest pain Chest pain type: unspecified Qualified Code(s): R07.9 - Chest pain, unspecified
--- NOTE | 2020-05-01 14:51 | Cardiology Consultation ---
Date of Consultation May 01, 2020 Assessment & Plan (1) STOREY (dyspnea on exertion): The patient does not endorse a history of recent chest discomfort on my discussion with him. He describes acute on chronic exertional shortness of breath. Cardiac enzymes are negative and reassuring. Echocardiogram is consistent with his history of remote inferior wall IN, with akinesis of the basal inferior wall. His home blood pressure medication regimen has been continued including diltiazem and metoprolol. He is also on Flomax as an outpatient. His outpatient regimen also includes clonidine 0.1 mg twice daily which is not prescribed during this hospital stay might explain his recent trend toward elevated blood pressure readings. Amlodipine was added, I think he would be better served by going back to his clonidine and being on 2 different calcium channel blockers. He has a history of remote abdominal aortic aneurysm repair this should likely be followed with surveillance imaging, vascular surgery follow-up as an outpatient as I am not certain that he has been seen recently, at least not within the [facility]. At present , I would consider transition back to the prior to hospital dosing with clonidine. Would continue his metoprolol for treatment of chronic coronary heart disease, especially given the brief run of nonsustained VT noted on entry yesterday evening. Would work on getting his blood pressure under better control. Can re-establish with cardiology as an outpatient, either our group or [facility] ,whatever is patient's preference. History of Present Illness Attending Physician: Martín Venegas MD History of Present Illness Charles Rodriguez is a 79 year old male seen in cardiology consultation per the request of Dr Nolasco for the evaluation of chest pain. The patient presented to the emergency department with complaints of difficulty breathing. Earlier in the weekend tolerated doing yard work without significant complaint, but yesterday he apparently developed shortness of breath with exertion. During my assessment, the patient is not concerned about his breathing. He denies any recent chest discomfort yesterday or today. Telemetry reveals sinus rhythm in the range of 50 to 60 bpm with occasional PVCs and occasional premature atrial contractions. A 16 beat run of nonsustained ventricular tachycardia was observed yesterday on telemetry at 1721. Past Cardiac / Vascular History: The patient states that he has previously followed with Dr. Pickens of [facility] cardiology , but he does not believe he has been seen in the office there since 2010. 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 This procedure apparently took place at [facility], but predates the available records. Patient transferred his primary care to the [facility] system in around 2006. He has a history of open abdominal aortic aneurysm repair performed at [facility] in 1997. Most recent available vascular study within the [facility] system took place in April 2017 with 4.1 cm saccular aneurysm surrounding the graft. The graft was described as being patent. 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 History is otherwise notable for COPD. Allergies Allergy/AdvReac Type Severity Reaction Status Date / Time No Known Allergies Allergy Unknown Verified 04/30/20 11:54 Home Medications Home Medications Medication Instructions Recorded Confirmed Type ipratropium 0.5 mg-albuterol 3 mg 3 ml INH QID PRN #180 ml 02/01/20 04/30/20 Rx (2.5 mg base)/3 mL nebulization soln atorvastatin 80 mg PO HS 04/30/20 04/30/20 History diltiazem HCl 120 mg PO HS 04/30/20 04/30/20 History furosemide 20 mg PO Q2D 04/30/20 04/30/20 History metoprolol tartrate 25 mg PO BID 04/30/20 04/30/20 History omeprazole 40 mg PO HS 04/30/20 04/30/20 History tamsulosin 0.4 mg PO QAM 04/30/20 04/30/20 History tramadol 50 mg PO Q6H PRN 04/30/20 04/30/20 History Patient History Medical History History of [place] (myocardial infarction) Vertigo Surgical History History of back surgery History of intravascular stent placement Social History Smoking Status: Former smoker Hx Substance Use: No Preferred Language: Singaporean Communication Ability: Effective Fur Comber Required: No Beliefs That Will Affect Care: None marital status: Life Partner Current Living Situation: Spouse Feels Safe at Home: Yes Physical Exam Physical Exam: Temp Pulse Resp BP Pulse Ox 36.9 C 54 L 18 167/81 H 95 05/01/20 14:38 05/01/20 14:38 05/01/20 14:38 05/01/20 14:38 05/01/20 14:38 Constitutional: WD/WN, vitals as above Respiratory: normal respiratory effort, lungs clear to auscultation Cardiovascular: RRR, no murmur, no edema Gastrointestinal (Abdomen): normal bowel sounds, soft, nontender, no hepatosplenomegaly Neurologic: PERRL, EOMI, accommodation nl, no face palsy, no dysarthria Results & Data ([facility]) Vital Signs (Past 12 Hours) Vital Signs Temp Pulse Pulse Pulse Resp BP Pulse Ox 05/01/20 11:23 36.9 C 55 L 18 167/81 H 95 05/01/20 09:40 66 05/01/20 08:00 57 L 05/01/20 07:02 36.8 C 54 L 18 145/91 H 94 05/01/20 03:00 36.8 C 81 18 122/69 95 Laboratory Results Cardiac Enzymes 04/30/20 04/30/20 05/01/20 Range/Units 17:39 22:52 06:40 Troponin I < 0.015 < 0.015 < 0.015 (0-0.045) ng/ml Intake and Output 04/30/20 05/01/20 05/01/20 22:59 06:59 14:59 Intake Total 120 / 670 550 / 670 625 / 625 Output Total Balance 120 / 670 550 / 670 624 / 624 Intake: Oral 120 / 670 550 / 670 625 / 625 Output: # Bowel Movements / Other: # Unmeasured Voids 1 Weight 88.1 kg 88.1 kg Patient Weight 05/02/20 06:59 Weight 88.1 kg Diagnostic Findings EKG performed 04/30/2020 at 11:19 AM revealed sinus bradycardia 53 bpm with IVCD. Compared to 2016, T wave inversions now noted in the inferior leads. Echocardiogram performed today 05/01/2020 revealed moderate concentric left ventricular hypertrophy with a small sized inferior wall motion abnormality with akinesis of the basal segment of the inferior wall. The LVEF is preserved at 55 to 60%. Mild aortic valve sclerosis without stenosis is noted. Mild mitral regurgitation, grade [address] of the brain was performed due to complaint of generalized weakness, without acute pathology
[2020-05-01] MEDS ORDERED: cloNIDine HCL 0.1 MG TAB PO ONE (15:14)
--- NOTE | 2020-05-01 16:32 | Discharge Summary ---
Date of Service May 01, 2020 Admission HPI Per Admitting Provider This is a 79 year old male who recently transferred his primary care to Dr. Patricio Prajapati of [facility] care on 04/26/2020 and review of the notes that patient was started on tamsulosin on that visit because of history of enuresis, and he reported to his family that while grocery shopping on Thursday04/27/2020 that he felt chest discomfort. Patient is a poor historian and with auditory impairments and history gathering was assisted by his step-daughter Teri [phone] at the bedside and that the symptoms continued to the next day. Patient denies that the chest discomfort is an acute pain. He cannot explain whether the pain was radiating or other symptoms. He could not tell me how he was feeling on the following days but his step-daughter said that he expressed to them that he was not feeling well and so patient was brought to emergency room on 04/30/2020. The ED physician ordered 324 mg aspirin. The ED physician does not see any acute changes on current EKG and that initial troponin negative. However the ED provider would like hospitalist to help with cardiac workup because of patient's past medical history of cardiac disease. Review of patient's 04/26/2020 primary care notes that describes patient with PMH of Hypertension, CAD s/p single stent in 2003, cerebral aneurysm, AAA s/p repair, mild COPD Family Health History and Allergies: Patient's step-daughter corroborates with patient of no known family health history of medical problems, and that patient does not have any known drug allergies to food or medications Primary Care Provider: Patricio Prajapati MD Admission Exam Per Admitting Provider Constitutional: comfortable Eyes: PERRL, conjunctivae normal, anicteric sclerae EOM intact bilaterally ENMT: external ear and nose normal, oropharynx normal Neck: trachea midline, no thyromegaly normal visual inspection Respiratory: normal respiratory effort, lungs clear to auscultation Cardiovascular: Rate/Rhythm: + bradycardic Gastrointestinal (Abdomen): normal bowel sounds, soft, nontender, no hepatosplenomegaly Musculoskeletal: Head/Neck/Chest: normocephalic and head atraumatic Neurologic: moves all extremities auditory impairments Psychiatric: Orientation: alert and cooperative Principal Diagnosis Generalized weakness with dyspnea on exertion, atypical chest symptoms no ACS, history of CAD with stent placement, stable COPD Discharge Exam Constitutional well developed, well nourished and + obese; no acute distress and not ill appearing Eyes PERRL, conjunctivae normal, anicteric sclerae ENMT external ear and nose normal, oropharynx normal Neck trachea midline, no thyromegaly Respiratory normal respiratory effort Auscultation: lungs clear to auscultation bilaterally Cardiovascular Rate/Rhythm: regular rate and regular rhythm Heart Sounds: + murmur (2/6 ESM over precordium) Gastrointestinal (Abdomen) Inspection/Auscultation: abdomen normal to inspection and normal bowel sounds; abdomen not distended Percussion/Palpation: abdomen soft Neurologic moves all extremities; no focal motor deficits Speech / Cognition: normal speech Discharge Data Allergies Allergy/AdvReac Type Severity Reaction Status Date / Time No Known Allergies Allergy Unknown Verified 04/30/20 11:54 Consultations 04/30/20 12:25 ED Decision to Admit Stat 04/30/20 13:15 Consult Case Management - Discharge Planning Routine 04/30/20 13:27 Consult Cardiology Routine Ordered Studies 04/30/20 11:28 CT head/brain wo con Stat Hospital Course (1) STOREY (dyspnea on exertion): Complains to have generalized weakness with dyspnea on exertion Likely secondary to progression of COPD without any acute exacerbation Denies any respiratory symptoms at rest We will continue his current medications (2) Chest pain: Admitted with questionable chest pain Patient denies any chest pain, palpitation, shortness of breath at rest Has history of CAD with status post stent placement 2003 Cardiac enzymes and EKG have been unremarkable Echocardiogram of the heart showed-moderate concentric LVH, small sized inferior wall motion abnormality with akinesis of the basal segment of the inferior wall, LV systolic function is normal with EF 55 to 60%, aortic valve sclerosis mild without significant stenosis, moderate mitral annular calcification, mild MR and grade 1 diastolic dysfunction Appreciate cardiology input and recommendation He wants to see his provider relations advocate Dr. mckeon as an outpatient (3) History of MO (myocardial infarction): As above no acute symptoms (4) COPD (chronic obstructive pulmonary disease): History of COPD Stable (5) CKD (chronic kidney disease), stage III: Remains stable PT and OT evaluation Possible discharge this afternoon/tomorrow Total Time Total Time Spent Total Time Spent (In Minutes): 35 minutes Total Time Includes: Examination of the Patient, Discharge Planning, Medication Reconciliation and Communication With Other Providers Discharge Plan Discharge Items Patient Disposition: Home - Self-Care Reason For Visit: CORONARY ARTERY DISEASE Discharge Diagnosis: Generalized weakness with dyspnea on exertion, atypical chest symptoms no ACS, history of CAD with stent placement, stable COPD Condition on Discharge: Good Activity: Resume your previous activity Non-emergency contact: Primary Care Provider Call non-emergency contact if: you have any medication questions and your symptoms worsen Follow-up/Referrals: Clifton Lainez MD [Physician] - 05/08/20 9:00 am Patricio Prajapati MD [Primary Care Provider] - 05/04/20 12:20 pm (Date & Time 05/04/2020 12:20 PM Provider Patricio Prajapati MD [facility] ) Diet: Heart Healthy Addtl Attending Provider Instructions: Please take precaution to avoid falls No change in your medications Pending Studies at Discharge: No Stand-Alone Forms: My Skin Scan, Smoking Cessation Medications and DC Order Prescriptions: New clonidine HCl 0.1 mg tablet 0.1 mg PO BID Qty: 60 RF: 0 Continued ipratropium-albuterol 0.5 mg-3 mg(2.5 mg base)/3 mL solution for nebulization 3 ml INH QID PRN (Reason: wheezing) Qty: 180 RF: 0 atorvastatin 80 mg tablet 80 mg PO HS RF: 0 omeprazole 40 mg capsule,delayed release(DR/EC) 40 mg PO HS RF: 0 tramadol 50 mg tablet 50 mg PO Q6H PRN (Reason: Pain) RF: 0 tamsulosin 0.4 mg capsule 0.4 mg PO QAM RF: 0 diltiazem HCl 120 mg capsule,extended release 24hr 120 mg PO HS RF: 0 furosemide 20 mg tablet 20 mg PO Q2D RF: 0 metoprolol tartrate 25 mg tablet 25 mg PO BID RF: 0 Discharge Orders: Discharge Order (Routine); Ordered 05/01/20 Ordered By: Martín Venegas Admission Data Admit Date/Time: 04/30/20 13:16 Attending Provider: Martín Venegas Admit Provider: Parvez Nolasco Primary Care Provider: Patricio Prajapati Other Providers: Parvez Nolasco ; Daniele Estrada Other Interventions: Discharge Summary Assessment (RN) Last Done: 05/01/20 14:38
== END 2020-05-01 15:10 | disposition home or self-care (01) ==
LOC: ED 10:59 → 2W 10:59 → SUATTDRO 13:16 → 2W 14:09

== ENCOUNTER 2023-01-23 13:31 | Inpatient (IN) ==
--- NOTE | 2023-01-23 14:30 | XRay Report ---
SINGLE VIEW CHEST CLINICAL HISTORY: Bradycardia FINDINGS: 2 AP, portable, upright chest radiographs are compared to study dated 12/15/2022. The heart is enlarged note atherosclerotic calcification of the thoracic aorta. The pulmonary vasculature is no ncongested. Chronic interstitial thickening similar to previous. There is minimal bibasilar atelectas is. The lungs and pleural spaces are otherwise clear. No pneumothorax is seen. The skeletal structure s are osteopenic. The bony thorax is grossly intact. IMPRESSION: Cardiomegaly with no active disease in the chest. ACT 112: Negative or not required by law. Electronically signed by: Rusty Malik M.D. 01/23/2023 2:28 PM
[2023-01-23 14:31] LABS: Basophils # (auto) 0.05 K/uL (0-0.2); Basophils % (auto) 0.6 %; Eosinophils # (auto) 0.25 K/uL (0-0.50); Eosinophils % (auto) 3.1 %; Hematocrit (blood only) 38.4 % (42.0-52.0); Hemoglobin 12.2 g/dl (14.0-18.0); Immature Granulocytes # (auto) 0.06 K/uL (0.01-0.20); Immature Granulocytes % (auto) 0.7 %; Mean Corpuscular Hgb Conc 31.8 g/dL (32.0-36.0); Mean Corpuscular Volume 81.7 fL (80.0-100.0); Mean Platelet Volume 11.1 fL (9.4-12.4); Monocytes # (auto) 0.81 K/uL (0.11-0.59); Neutrophils # (auto) 5.66 K/uL (1.40-6.50); Neutrophils % (auto) 69.6 %; Platelet Count 270 K/uL (130-400); RDW Coefficient of Variation 13.7 % (11.5-14.5); RDW Standard Deviation 40.6 fL (36.4-46.3); White Blood Count 8.13 K/ul (4.8-10.8)
[2023-01-23 14:38] LABS: Albumin Globulin Ratio 1.5 (0.9-2); Albumin Level 4.3 gm/dl (3.4-5.0); BUN Creatinine Ratio 14.7 (10-20); Bilirubin,Total 0.6 mg/dl (0.2-1.0); Calcium 9.4 mg/dl (8.6-10.3); Creatinine Clr Calc Pharmacy 43.9 ml/min; Est GFR (African American) 53.2 ml/min; Est GFR (Non-African American) 45.9 ml/min; Globulin 2.9 gm/dl (2.5-4.0); Magnesium 2.1 mg/dl (1.7-2.4); Potassium 4.9 mmol/L (3.5-5.1); Total Protein 7.2 gm/dl (6.0-8.3)
[2023-01-23 14:43] LABS: Troponin I High Sensitivity 15.7 pg/ml (0-20)
[2023-01-23 15:12] LABS: Lyme Ab IgG w/WB Rflx Negative (Negative); Lyme Ab IgM w/WB Rflx Negative (Negative)
--- NOTE | 2023-01-23 15:16 | Electrocardiogram Report ---
Test Reason : Blood Pressure : / mmHG Vent. Rate : 032 BPM Atrial Rate : 063 BPM P-R Int : 000 ms QRS Dur : 144 ms QT Int : 686 ms P-R-T Axes : 074 -71 101 degrees QTc Int : 500 ms Sinus rhythm with complete heart block Idioventricular rhythm as escape (only the third beat shows A-V conduction) Abnormal ECG When compared with ECG of 15-DEC-2022 17:15, Cmoplete heart block now present Idioventricular rhythm has replaced Sinus rhythm Vent. rate has decreased BY 28 BPM Confirmed by Clifton Lainez ([id number]) on 01/23/2023 3:15:45 PM Referred By: REFERRED SELF Confirmed By:Clifton Lainez
--- NOTE | 2023-01-23 15:29 | History & Physical Report ---
Date of Service January 23, 2023 Assessment & Plan (1) Complete heart block, transient: (2) Bradycardia: Plan: - Admit to PCU - More symptomatic x past 3 days with one episode of dizziness which occurred a month ago and was thought was due to vertigo - now it is most likely that heart block was affecting him at that point however was not seen on EKG due to intermittent block - EKG reviewed , one in NSR and another showing complete heart sanchez, HR in 30s, possible AV node dissociation - he is back in NSR currently with HR in the mid 50s at bedside - Consult cardiology - discussed with Dr. Lainez at bedside, patient will remain here throughout the weekend and have likely pacemaker insertion on Thursday. Dr. Jalloh to see pt tomorrow. - Allow diet for now, n.p.o. at midnight the night before procedure - Hold clonidine as this likely potentiated it, does not show signs of exercise intolerance - Appears euvolemic, has Lasix as needed however cannot recall the last time he took this medication, no edema - Continue baby aspirin and lisinopril -Pacer pads at bedside at all times -BP is noted to be elevated at 210/80s at bedside, can use IV hydralazine 10 mg Q4H prn blood pressure SBP > 220 or for DBP >110 as per cardiology. Allow p ermissive htn in the setting of acute heart block. - Lyme titre is negative - TSH is 5.429, free T 4 0.84 (3) CAD (coronary artery disease): Plan: -Continue baby aspirin, atorvastatin 80 mg for CAD (4) HTN (hypertension): Plan: - Amlodipine was previously added to his regimen however he developed hyponatremia and that was discontinued. (5) Dyslipidemia: Plan: - Cont statin therapy (6) AAA (abdominal aortic aneurysm): Plan: - Vascular duplex reviewed [facility] from 2017 - AAA s/p repair: mid aortic segment measures 3.7 x 3.7 cm. The distal aortic segment measures 1.9 x 1.9 cm. (7) COPD (chronic obstructive pulmonary disease): Plan: -History of such, quit smoking over 30 years ago, does not require any supplemental O2 at baseline (8) CKD (chronic kidney disease), stage III: Plan: -Baseline of 1.1-1.4, creatinine today is 1.43, BUN of 21, trend with a.m. labs -Allow diet (9) Seizure disorder: Plan: -History of such, stable on Keppra, follows with Meme Gresham as an outpatient DVT PPx: - scds, heparin subq CODE: Full code Dispo: From home, likely to remain in the hospital x 1-2 days A total of 80 minutes were spent with greater than 50% of that time face to face with the patient, personally reviewing all current laboratories, imaging studies, past medication reconciliation, outpatient chart review, and discussion with specialists to collaborate care for the patient with attending. Please see attending documentation for corrections and/or additions. History of Present Illness Primary Care Provider: Kayode Robertson This is an 82 yo M with PMHz of CAD s/p angioplasty with stent, HTN, AAA s/p repair, HLD, COPD, CKD stage III, seizure disorder, BPH, who presents to the hospital with bradycardia with hr in the 50s-60s, and he has been symptomatic with dizziness. Pt reports having episodes of dizziness intermittently within the past 3 days, and once previously about a month ago. Pt reports living by himself, and his Fijair's daughter, Essie, helps him at home and today was checking on him because of having more dizziness, and upon trying to check the pulse ox could not get a read on the HR, therefore she brought him to the ER. He denies any chest pain, shortness of breath, abdominal complaints. Pt states he feels well enough to even go home presently, but understand that he should stay in the hospital and is agreeable to doing so. EKG reviewed showing NSR but then there are periods of AV dissociation, possible new onset 3rd degree block, with HR in the 30s. Pt is on clonidine daily. Pt follows with Dr. Lainez with cardiology as an outpatient. Discussed with Dr. Lainez at bedside and plan is to have the patient stay over this weekend and have pacemaker insertion on Thursday. Pt has previously smoked, and quit in 1988. Pt quit drinking alcohol around the same time. Allergies Allergy/AdvReac Type Severity Reaction Status Date / Time hydrochlorothiazide AdvReac Mild myalgia Verified 01/23/23 15:51 [From Dyazide] triamterene [From Dyazide] AdvReac Mild myalgia Verified 01/23/23 15:51 Home Medications Medication Instructions Recorded Confirmed Type omeprazole 40 mg capsule,delayed 40 mg PO QAM 04/30/20 01/23/23 History release aspirin 81 mg tablet,delayed 162 mg PO DAILY #30 tabs 10/12/20 01/23/23 Rx release cholecalciferol (vitamin D3) 25 25 mcg PO DAILY #30 caps 10/12/20 01/23/23 Rx mcg (1,000 unit) capsule levetiracetam 500 mg tablet 500 mg PO BID 01/30/22 01/23/23 History (Keppra) clonidine HCl 0.1 mg tablet 0.1 mg PO .COMPLEX #200 tabs 03/25/22 01/23/23 Rx ferrous sulfate 325 mg (65 mg 325 mg PO DAILY 09/16/22 01/23/23 History iron) tablet meloxicam 7.5 mg tablet 7.5 - 15 mg PO DAILY PRN Pain 09/16/22 01/23/23 History nitroglycerin 0.4 mg sublingual 0.4 mg sublingual Q5M PRN chest 09/16/22 01/23/23 Rx tablet pain #25 tabs atorvastatin 80 mg tablet 80 mg PO HS #90 tabs 10/21/22 01/23/23 Rx ipratropium 0.5 mg-albuterol 3 mg 3 ml inhalation QID PRN wheezing 10/21/22 01/23/23 Rx (2.5 mg base)/3 mL nebulization #180 mL soln lisinopril 30 mg tablet 30 mg PO QAM 12/15/22 01/23/23 History furosemide 40 mg tablet 40 mg PO DIRECTED PRN .weight 01/23/23 01/23/23 History gain > 180 Past Med/Surg History Medical History Anemia Basilar artery aneurysm CAD (coronary artery disease) Carotid bruit Dermatitis Erectile dysfunction Gastro-esophageal reflux disease with esophagitis Gout History of ID (myocardial infarction) Iron deficiency LVH (left ventricular hypertrophy) Osteoarthrosis Vertigo Vitamin D deficiency Surgical History History of back surgery History of intravascular stent placement Family History (Updated 01/23/23 @ 16:32 by Betsy Joyner PA-C) Mother Cancer Father Cancer Stroke Brother Cancer Son Diabetes Hypertension Social History Smoking Status: Unknown if ever smoked Tobacco Type: Cigarettes Age Started Using Tobacco: 15; packs per day: 3; Hx Substance Use: No Preferred Language: Indonesian Communication Ability: Effective City Driver Required: No Beliefs That Will Affect Care: None marital status: Life Partner Current Living Situation: Spouse Feels Safe at Home: Yes Assistive Devices: Denture - Upper, Denture - Lower, Glasses and Hearing Aid - Bilateral Review of Systems Review of Systems: Constitutional: No fever, sweats or chills Eyes: No diplopia, no worsening or blurred vision ENT: normal hearing, no trouble swallowing Respiratory: No cough, sputum, dyspnea at rest or on exertion Cardiovascular: No chest pain, tightness or palpitations Abdomen: No pain, nausea, vomiting, diarrhea or constipation Musculoskeletal: No joint pain, calf pain, swelling Neurologic: No weakness, numbness/tingling, or balance problems Psychiatric: No anxiety or depression Skin: No rash or itch Physical Exam 2 Physical Exam: General: awake, alert, no apparent distress Head: Normocephalic, atraumatic ENT: PERRL, EOMI, no pharyngeal exudate, mucous membranes moist, + dentures, + hard of hearing Chest: Clear to auscultation, on room air, pulse ox at 96%, no adventitious breath sounds Cardiac: Bradycardic, HR in mid 50s at bedside, no murmur, no JVD, normal peripheral pulses, good capillary refill, appears euvolemic Abdominal: NABS x 4 quadrants, soft, nondistended, nontender to palpation, no rebound or guarding Extremities: Normal inspection, no peripheral edema or erythema, calfs nontender to palpation Psych: Normal mood and affect Neuro: AAO x 3, strength intact bilaterally and rated 5/5, no motor deficits, speech is clear, no peripheral sensory deficits Results & Data Results & Data Vital Signs (Past 12 Hours) Vital Signs Temp Pulse Pulse Resp BP BP Pulse Ox 01/23/23 14:40 60 19 96 01/23/23 14:30 53 L 16 97 01/23/23 14:30 173/78 H 01/23/23 14:20 50 L 17 97 01/23/23 14:15 168/79 H 01/23/23 14:15 58 L 19 98 01/23/23 14:10 51 L 17 97 01/23/23 14:00 51 L 17 97 01/23/23 14:00 158/82 H 01/23/23 13:54 51 L 20 97 01/23/23 13:58 48 L 01/23/23 13:55 50 L 21 151/71 H 97 01/23/23 13:54 52 L 20 01/23/23 13:34 36.8 C 40 L 98 O2 Del Method 01/23/23 14:40 01/23/23 14:30 01/23/23 14:30 01/23/23 14:20 01/23/23 14:15 01/23/23 14:15 01/23/23 14:10 01/23/23 14:00 01/23/23 14:00 01/23/23 13:54 01/23/23 13:58 01/23/23 13:55 Room Air 01/23/23 13:54 01/23/23 13:34 Room Air Laboratory Results 01/23/23 01/23/23 01/23/23 15:43 13:57 13:57 WBC RBC Hgb Hct MCV MCH MCHC RDW Std Deviation RDW Coeff of Gibson Plt Count MPV Immature Gran % (Auto) Neut % (Auto) Lymph % (Auto) Atlantic % (Auto) Eos % (Auto) Baso % (Auto) Neut # (Auto) Lymph # (Auto) Atlantic # (Auto) Eos # (Auto) Baso # (Auto) Immature Gran # (Auto) Sodium Potassium Chloride Carbon Dioxide Anion Gap BUN Creatinine Est Cr Clr Drug Dosing Est GFR ( Amer) Est GFR (Non-Af Amer) BUN/Creatinine Ratio Glucose Calcium Magnesium Total Bilirubin AST ALT Alkaline Phosphatase Total Creatine Kinase Troponin I High Sens Total Protein Albumin Globulin Albumin/Globulin Ratio TSH 5.329 H Urine Color Yellow Urine Appearance Clear Urine pH 7.0 Ur Specific Welch 1.004 Urine Protein Negative Urine Glucose (UA) Negative Urine Ketones Negative Urine Blood Negative Urine Nitrite Negative Urine Bilirubin Negative Urine Urobilinogen Negative Ur Leukocyte Esterase Negative Lyme Disease IgG Ab Negative Lyme Disease IgM Ab Negative 01/23/23 01/23/23 13:57 13:57 WBC 8.13 RBC 4.70 Hgb 12.2 L Hct 38.4 L MCV 81.7 MCH 26.0 MCHC 31.8 L RDW Std Deviation 40.6 RDW Coeff of Gibson 13.7 Plt Count 270 MPV 11.1 Immature Gran % (Auto) 0.7 Neut % (Auto) 69.6 Lymph % (Auto) 16.0 Atlantic % (Auto) 10.0 Eos % (Auto) 3.1 Baso % (Auto) 0.6 Neut # (Auto) 5.66 Lymph # (Auto) 1.30 Atlantic # (Auto) 0.81 H Eos # (Auto) 0.25 Baso # (Auto) 0.05 Immature Gran # (Auto) 0.06 Sodium 134 L Potassium 4.9 Chloride 102 Carbon Dioxide 27 Anion Gap 5 BUN 21 Creatinine 1.43 H Est Cr Clr Drug Dosing 43.9 Est GFR ( Amer) 53.2 Est GFR (Non-Af Amer) 45.9 BUN/Creatinine Ratio 14.7 Glucose 79 Calcium 9.4 Magnesium 2.1 Total Bilirubin 0.6 AST 22 ALT 17 Alkaline Phosphatase 140 H Total Creatine Kinase 140 Troponin I High Sens 15.7 Total Protein 7.2 Albumin 4.3 Globulin 2.9 Albumin/Globulin Ratio 1.5 TSH Urine Color Urine Appearance Urine pH Ur Specific Welch Urine Protein Urine Glucose (UA) Urine Ketones Urine Blood Urine Nitrite Urine Bilirubin Urine Urobilinogen Ur Leukocyte Esterase Lyme Disease IgG Ab Lyme Disease IgM Ab Diagnostic Findings Chest X-Ray 01/23/23 13:45 SINGLE VIEW CHEST CLINICAL HISTORY: Bradycardia FINDINGS: 2 AP, portable, upright chest radiographs are compared to study dated 12/15/2022. The heart is enlarged note atherosclerotic calcification of the thoracic aorta. The pulmonary vasculature is noncongested. Chronic interstitial thickening similar to previous. There is minimal bibasilar atelectasis. The lungs and pleural spaces are otherwise clear. No pneumothorax is seen. The skeletal structures are osteopenic. The bony thorax is grossly intact. IMPRESSION: Cardiomegaly with no active disease in the chest. ACT 112: Negative or not required by law. Electronically signed by: Rusty Malik M.D. 01/23/2023 2:28 PM ECG Additional Comments: Reviewed showing intermittent bradycardia with AV block 3rd degree Supervising Physician Co-Signing Physician Notes Patient seen and examined independently. Discussed with above provider. Patient is a 82-year-old male with past medical history of hypertension, CAD, CKD who presents with dizziness. Patient has been reporting several days of dizziness intermittently. EKG on admission reviewed; complete heart block present. Telemetry reviewed; sinus rhythm with episodes of intermittent complete heart block. Cardiology evaluated the patient; recommended to stop clonidine. Pacemaker placement during the hospitalization. As needed hydralazine for high blood pressure. Monitor on telemetry.
[2023-01-23 15:31] LABS: Thyroid Stimulating Hormone 5.329 uIu/ml (0.300-4.500)
[2023-01-23 15:56] LABS: Appearance Urine Clear (Clear); Bilirubin Urine Negative (Negative); Blood Urine Negative (Negative); Color Urine Yellow; Glucose Urine UA Negative (Negative); Ketones Urine Negative (Negative); Leukocyte Esterase Urine Negative (Negative); Nitrite Urine Negative (Negative); Protein Urine Negative (Negative); Specific Gravity Urine 1.004 (1.000-1.030); Urobilinogen Urine Negative (Negative)
--- NOTE | 2023-01-23 16:04 | Emergency Department Note ---
Impression & Plan Complete heart block, transient, Dizziness ED Provider Note INFORMANT: Patient and caregiver ED PROVIDER(S): Dante Ramirez MD CHIEF COMPLAINT: Dizziness, bradycardia PLAN: Disposition: Admitted Condition: Good Outpatient prescription management: none Referral: None MEDICAL DECISION MAKING: Patient presented because of dizziness bradycardia. He was brought back to the room as he was bradycardic. The patient had an ECG performed. He was found to be in a complete heart block. He was placed on cardiac monitoring. He then transition to a sinus rhythm. The patient's blood pressure was adequate. Patient pads were applied. I did discuss the case with his veterinary dentist, Dr. Lainez. He felt the patient would require admission and further cardiac management. Patient CBC and chemistry panels were unremarkable. The patient was reassessed and was doing well. [facility] The patient's case was discussed and diagnostics were reviewed. Patient was evaluated in ER admitted for further management. Discussed with proposal manager After review of the information above and other included data, I feel the patien t requires admission. Triage Nursing notes reviewed and agree them. Vital Signs: reviewed and remarkable for hypertension Prior /Outside records reviewed: none Differential diagnosis: Symptomatic bradycardia, benign positional vertigo, dehydration, hypovolemia, anemia, tumor, infection, hypoglycemia, electrolyte abnormalities, cardiac sources, intracerebral event, toxicologic, neurologic, as well as other pathologies. Diagnostics, as interpreted by me: ECG: Twelve-lead ECG reveals complete heart block with a rate of 32 bpm. A-V dissociation present. Right bundle branch block. Inferior Q waves present. Lateral T wave inversions present. Cardiac Monitoring: Cardiac monitoring ordered by me: The patient was placed on continuous cardiac monitoring and observed. It revealed a normal sinus rhythm at 60 beats per minute without ectopy or evidence of dysrhythmia. Medical decision rules: none Imaging studies: Chest x-ray reveals cardiomegaly without acute infiltrate or abnormality. HPI: The patient is a 82year old male who presents to the Emergency Room with complaints of dizziness. This started a few weeks ago and has been intermittent. Patient had another episode today and is noted to have a very low heart rate in the 30s. The patient also notes the following associated symptoms, none. The patient has taken no new medication for relieving factors. Current pain is rated as 0/10. Pt denies LOC, headache, fevers, chills, diaphoresis, visual changes, neck pain, chest pain, breathing difficulties, nausea, vomiting, abdominal pain, back pain, melena, hematochezia, urinary symptoms, numbness, weakness, lymphadenopathy, rash, or other complaints. PAST MEDICAL HISTORY: See Below, hypertension, CKD, COPD PAST SURGICAL HISTORY: See Below, SOCIAL HISTORY: See Below, retired HOME MEDICATIONS: See Below ALLERGIES: See Below VITALS: See Below PHYSICAL EXAMINATION: GENERAL: Awake, alert, nontoxic-appearing, in no distress HENT: Normocephalic, atraumatic. Oropharynx unremarkable. EYES: Normal conjunctiva. Sclera non-icteric. NECK: Inspection normal. Non-tender. Supple. No nuchal rigidity. FROM. No masses. RESPIRATORY: Clear to auscultation. No wheezes. No rales. Normal respiratory effort. CARDIAC: Bradycardic rate. Normal rhythm. No murmurs. No rubs. Extremities warm and well perfused. Pulses equal. No JVD. GI: Soft, non-distended. No tenderness to palpation. No rebound or guarding. No masses. RECTAL: Deferred. MUSCULOSKELETAL: Atraumatic. Chest examination reveals no tenderness. The back is symmetrical on inspection without obvious abnormality. There is no CVA tenderness to palpation. No joint edema. LOWER EXTREMITIES: Calves are equal size bilaterally and non-tender. 1+ edema. No discoloration. NEURO: Normal sensorium. No sensory or motor deficits noted. SKIN: No rash or jaundice noted. Past Med/Surg History Medical History Anemia Basilar artery aneurysm CAD (coronary artery disease) Carotid bruit Dermatitis Erectile dysfunction Gastro-esophageal reflux disease with esophagitis Gout History of [place] (myocardial infarction) Iron deficiency LVH (left ventricular hypertrophy) Osteoarthrosis Vertigo Vitamin D deficiency Surgical History History of back surgery History of intravascular stent placement Family History (Updated 01/23/23 @ 16:32 by Betsy Joyner PA-C) Mother Cancer Father Cancer Stroke Brother Cancer Son Diabetes Hypertension Social History Smoking Status: Unknown if ever smoked Tobacco Type: Cigarettes Age Started Using Tobacco: 15; packs per day: 3; Hx Substance Use: No Preferred Language: Malaysian Communication Ability: Effective Topographic Computator Required: No Beliefs That Will Affect Care: None marital status: Life Partner Current Living Situation: Spouse Feels Safe at Home: Yes Assistive Devices: Denture - Upper, Denture - Lower, Glasses and Hearing Aid - Bilateral Allergies Allergies Allergy/AdvReac Type Severity Reaction Status Date / Time hydrochlorothiazide AdvReac Mild myalgia Verified 01/23/23 15:51 [From Dyazide] triamterene [From Dyazide] AdvReac Mild myalgia Verified 01/23/23 15:51 Home Meds Home Medications Medication Instructions Recorded Confirmed omeprazole 40 mg capsule,delayed 40 mg PO QAM 04/30/20 01/23/23 release levetiracetam 500 mg tablet 500 mg PO BID 01/30/22 01/23/23 (Keppra) ferrous sulfate 325 mg (65 mg 325 mg PO DAILY 09/16/22 01/23/23 iron) tablet meloxicam 7.5 mg tablet 7.5 - 15 mg PO DAILY PRN Pain 09/16/22 01/23/23 lisinopril 30 mg tablet 30 mg PO QAM 12/15/22 01/23/23 furosemide 40 mg tablet 40 mg PO DIRECTED PRN .weight 01/23/23 01/23/23 gain > 180 Previous Rx's Medication Instructions Recorded aspirin 81 mg tablet,delayed 162 mg PO DAILY #30 tabs 10/12/20 release cholecalciferol (vitamin D3) 25 25 mcg PO DAILY #30 caps 10/12/20 mcg (1,000 unit) capsule clonidine HCl 0.1 mg tablet 0.1 mg PO .COMPLEX #200 tabs 03/25/22 nitroglycerin 0.4 mg sublingual 0.4 mg sublingual Q5M PRN chest 09/16/22 tablet pain #25 tabs atorvastatin 80 mg tablet 80 mg PO HS #90 tabs 10/21/22 ipratropium 0.5 mg-albuterol 3 mg 3 ml inhalation QID PRN wheezing 10/21/22 (2.5 mg base)/3 mL nebulization #180 mL soln Results & Data (ED) Vital Signs Vital Signs - 24 hr 01/23/23 13:34 01/23/23 13:54 01/23/23 13:55 Temperature 36.8 C Temperature Source Temporal Artery Scan Pulse Rate 40 L 52 L Pulse Rate [Right Finger] 50 L Pulse Rate from SpO2 Sensor Pulse Rhythm Regular Pulse Rhythm [Right Finger] Regular Pulse Strength [Right Finger] Normal Respiratory Rate 20 21 Respiratory Effort / Characteristics Non-Labored Spontaneous Respiratory Depth Normal Respiratory Pattern Regular Blood Pressure Blood Pressure [Right Arm] 151/71 H Blood Pressure Mean Blood Pressure Mean [Right Arm] 97 Blood Pressure Position [Right Arm] Lying Pulse Oximetry 98 97 Oxygen Delivery Method Room Air Room Air Sepsis Recent Fever Within 48 Hours No Sepsis New/Unexplained Change in Mental Status No Sepsis Action Taken by Nursing No Action Required 01/23/23 13:58 01/23/23 13:54 01/23/23 14:00 Temperature Temperature Source Pulse Rate 48 L 51 L Pulse Rate [Right Finger] Pulse Rate from SpO2 Sensor 52 L Pulse Rhythm Pulse Rhythm [Right Finger] Pulse Strength [Right Finger] Respiratory Rate 20 Respiratory Effort / Characteristics Respiratory Depth Respiratory Pattern Blood Pressure 158/82 H Blood Pressure [Right Arm] Blood Pressure Mean 121 Blood Pressure Mean [Right Arm] Blood Pressure Position [Right Arm] Pulse Oximetry 97 Oxygen Delivery Method Sepsis Recent Fever Within 48 Hours Sepsis New/Unexplained Change in Mental Status Sepsis Action Taken by Nursing 01/23/23 14:00 01/23/23 14:10 01/23/23 14:15 Temperature Temperature Source Pulse Rate 51 L 51 L 58 L Pulse Rate [Right Finger] Pulse Rate from SpO2 Sensor 51 L 51 L 53 L Pulse Rhythm Pulse Rhythm [Right Finger] Pulse Strength [Right Finger] Respiratory Rate 17 17 19 Respiratory Effort / Characteristics Respiratory Depth Respiratory Pattern Blood Pressure Blood Pressure [Right Arm] Blood Pressure Mean Blood Pressure Mean [Right Arm] Blood Pressure Position [Right Arm] Pulse Oximetry 97 97 98 Oxygen Delivery Method Sepsis Recent Fever Within 48 Hours Sepsis New/Unexplained Change in Mental Status Sepsis Action Taken by Nursing 01/23/23 14:15 01/23/23 14:20 01/23/23 14:30 Temperature Temperature Source Pulse Rate 50 L Pulse Rate [Right Finger] Pulse Rate from SpO2 Sensor 51 L Pulse Rhythm Pulse Rhythm [Right Finger] Pulse Strength [Right Finger] Respiratory Rate 17 Respiratory Effort / Characteristics Respiratory Depth Respiratory Pattern Blood Pressure 168/79 H 173/78 H Blood Pressure [Right Arm] Blood Pressure Mean 110 115 Blood Pressure Mean [Right Arm] Blood Pressure Position [Right Arm] Pulse Oximetry 97 Oxygen Delivery Method Sepsis Recent Fever Within 48 Hours Sepsis New/Unexplained Change in Mental Status Sepsis Action Taken by Nursing 01/23/23 14:30 01/23/23 14:40 Temperature Temperature Source Pulse Rate 53 L 60 Pulse Rate [Right Finger] Pulse Rate from SpO2 Sensor 53 L 59 L Pulse Rhythm Pulse Rhythm [Right Finger] Pulse Strength [Right Finger] Respiratory Rate 16 19 Respiratory Effort / Characteristics Respiratory Depth Respiratory Pattern Blood Pressure Blood Pressure [Right Arm] Blood Pressure Mean Blood Pressure Mean [Right Arm] Blood Pressure Position [Right Arm] Pulse Oximetry 97 96 Oxygen Delivery Method Sepsis Recent Fever Within 48 Hours Sepsis New/Unexplained Change in Mental Status Sepsis Action Taken by Nursing Laboratory Data 01/23/23 13:57 01/23/23 13:57 Lab Results 01/23/23 01/23/23 01/23/23 Range/Units 13:57 13:57 13:57 WBC 8.13 (4.8-10.8) K/ul RBC 4.70 (4.70-6.10) M/uL Hgb 12.2 L (14.0-18.0) g/dl Hct 38.4 L (42.0-52.0) % MCV 81.7 (80.0-100.0) fL MCH 26.0 (25.0-34.0) pg MCHC 31.8 L (32.0-36.0) g/dL RDW Std Deviation 40.6 (36.4-46.3) fL RDW Coeff of Gibson 13.7 (11.5-14.5) % Plt Count 270 (130-400) K/uL MPV 11.1 (9.4-12.4) fL Immature Gran % (Auto) 0.7 % Neut % (Auto) 69.6 % Lymph % (Auto) 16.0 % Peach % (Auto) 10.0 % Eos % (Auto) 3.1 % Baso % (Auto) 0.6 % Neut # (Auto) 5.66 (1.40-6.50) K/uL Lymph # (Auto) 1.30 (1.2-3.4) K/uL Peach # (Auto) 0.81 H (0.11-0.59) K/uL Eos # (Auto) 0.25 (0-0.50) K/uL Baso # (Auto) 0.05 (0-0.2) K/uL Immature Gran # (Auto) 0.06 (0.01-0.20) K/uL Sodium 134 L (136-145) mmol/L Potassium 4.9 (3.5-5.1) mmol/L Chloride 102 (98-107) mmol/L Carbon Dioxide 27 (21-32) mmol/L Anion Gap 5 (3-11) BUN 21 (6-23) mg/dl Creatinine 1.43 H (0.6-1.4) mg/dl Est Cr Clr Drug Dosing 43.9 ml/min Est GFR ( Amer) 53.2 ml/min Est GFR (Non-Af Amer) 45.9 ml/min BUN/Creatinine Ratio 14.7 (10-20) Glucose 79 (70-99(Fasting)) mg/dl Calcium 9.4 (8.6-10.3) mg/dl Magnesium 2.1 (1.7-2.4) mg/dl Total Bilirubin 0.6 (0.2-1.0) mg/dl AST 22 (13-39) U/L ALT 17 (7-52) U/L Alkaline Phosphatase 140 H (34-104) U/L Total Creatine Kinase 140 (30-223) U/L Troponin I High Sens 15.7 (0-20) pg/ml Total Protein 7.2 (6.0-8.3) gm/dl Albumin 4.3 (3.4-5.0) gm/dl Globulin 2.9 (2.5-4.0) gm/dl Albumin/Globulin Ratio 1.5 (0.9-2) TSH 5.329 H (0.300-4.500) uIu/ml Free T4 0.84 (0.61-1.60) ng/dl Urine Color Urine Appearance (Clear) Urine pH (4.5-7.5) Ur Specific [place] (1.000-1.030) Urine Protein (Negative) Urine Glucose (UA) (Negative) Urine Ketones (Negative) Urine Blood (Negative) Urine Nitrite (Negative) Urine Bilirubin (Negative) Urine Urobilinogen (Negative) Ur Leukocyte Esterase (Negative) Lyme Disease IgG Ab (Negative) Lyme Disease IgM Ab (Negative) SARS-CoV-2, RNA, NAAT (NEGATIVE) 06/02/23 06/02/23 06/02/23 Range/Units 13:57 15:42 15:43 WBC (4.8-10.8) K/ul RBC (4.70-6.10) M/uL Hgb (14.0-18.0) g/dl Hct (42.0-52.0) % MCV (80.0-100.0) fL MCH (25.0-34.0) pg MCHC (32.0-36.0) g/dL RDW Std Deviation (36.4-46.3) fL RDW Coeff of Gibson (11.5-14.5) % Plt Count (130-400) K/uL MPV (9.4-12.4) fL Immature Gran % (Auto) % Neut % (Auto) % Lymph % (Auto) % Peach % (Auto) % Eos % (Auto) % Baso % (Auto) % Neut # (Auto) (1.40-6.50) K/uL Lymph # (Auto) (1.2-3.4) K/uL Peach # (Auto) (0.11-0.59) K/uL Eos # (Auto) (0-0.50) K/uL Baso # (Auto) (0-0.2) K/uL Immature Gran # (Auto) (0.01-0.20) K/uL Sodium (136-145) mmol/L Potassium (3.5-5.1) mmol/L Chloride (98-107) mmol/L Carbon Dioxide (21-32) mmol/L Anion Gap (3-11) BUN (6-23) mg/dl Creatinine (0.6-1.4) mg/dl Est Cr Clr Drug Dosing ml/min Est GFR ( Amer) ml/min Est GFR (Non-Af Amer) ml/min BUN/Creatinine Ratio (10-20) Glucose (70-99(Fasting)) mg/dl Calcium (8.6-10.3) mg/dl Magnesium (1.7-2.4) mg/dl Total Bilirubin (0.2-1.0) mg/dl AST (13-39) U/L ALT (7-52) U/L Alkaline Phosphatase (34-104) U/L Total Creatine Kinase (30-223) U/L Troponin I High Sens (0-20) pg/ml Total Protein (6.0-8.3) gm/dl Albumin (3.4-5.0) gm/dl Globulin (2.5-4.0) gm/dl Albumin/Globulin Ratio (0.9-2) TSH (0.300-4.500) uIu/ml Free T4 (0.61-1.60) ng/dl Urine Color Yellow Urine Appearance Clear (Clear) Urine pH 7.0 (4.5-7.5) Ur Specific [place] 1.004 (1.000-1.030) Urine Protein Negative (Negative) Urine Glucose (UA) Negative (Negative) Urine Ketones Negative (Negative) Urine Blood Negative (Negative) Urine Nitrite Negative (Negative) Urine Bilirubin Negative (Negative) Urine Urobilinogen Negative (Negative) Ur Leukocyte Esterase Negative (Negative) Lyme Disease IgG Ab Negative (Negative) Lyme Disease IgM Ab Negative (Negative) SARS-CoV-2, RNA, NAAT NEGATIVE (NEGATIVE) Imaging Data Radiologist's Impression: Chest X-Ray 01/23/23 13:45 SINGLE VIEW CHEST CLINICAL HISTORY: Bradycardia FINDINGS: 2 AP, portable, upright chest radiographs are compared to study dated 12/15/2022. The heart is enlarged note atherosclerotic calcification of the thoracic aorta. The pulmonary vasculature is noncongested. Chronic interstitial thickening similar to previous. There is minimal bibasilar atelectasis. The lungs and pleural spaces are otherwise clear. No pneumothorax is seen. The skeletal structures are osteopenic. The bony thorax is grossly intact. IMPRESSION: Cardiomegaly with no active disease in the chest. ACT 112: Negative or not required by law. Electronically signed by: Rusty Malik M.D. 01/23/2023 2:28 PM Discharge Plan Visit Data Chief Complaint: Abnormal Labs/Diagnostic Testing Stated Complaint: LOW PULSE, DIZZINESS ED Provider: Dante Ramirez Discharge Problem: Complete heart block, transient, Dizziness Forms Stand Alone Forms: My [facility] [employer] Prescriptions Prescriptions: No Action aspirin 81 mg tablet,delayed release (DR/EC) 162 mg PO DAILY Qty: 30 2RF cholecalciferol (vitamin D3) 25 mcg (1,000 unit) capsule 25 mcg PO DAILY Qty: 30 0RF clonidine HCl 0.1 mg tablet 0.1 mg PO .COMPLEX Qty: 200 3RF Rx Instructions: 0.1 mg PO Take twice a day and may take one daily PRN for systolic BP greater than 200; atorvastatin 80 mg tablet 80 mg PO HS Qty: 90 3RF levetiracetam [Keppra] 500 mg tablet 500 mg PO BID ipratropium-albuterol 0.5 mg-3 mg(2.5 mg base)/3 mL solution for nebulization 3 ml INH QID PRN (Reason: wheezing) Qty: 180 4RF ferrous sulfate 325 mg (65 mg iron) tablet 325 mg PO DAILY meloxicam 7.5 mg tablet 7.5 - 15 mg PO DAILY PRN (Reason: Pain) nitroglycerin 0.4 mg tablet, sublingual 0.4 mg sublingual Q5M PRN (Reason: chest pain) Qty: 25 3RF Rx Instructions: do not exceed 3 doses per episode omeprazole 40 mg capsule,delayed release(DR/EC) 40 mg PO QAM lisinopril 30 mg tablet 30 mg PO QAM furosemide 40 mg tablet 40 mg PO DIRECTED PRN (Reason: .weight gain > 180) Rx Instructions: 40 mg PO Take twice a week for weight gain over 180lbs Referrals Referrals: Kayode Robertson, PA-C [Primary Care Provider] -
[2023-01-23 16:05] LABS: T4 Free Thyroxine 0.84 ng/dl (0.61-1.60)
--- NOTE | 2023-01-23 16:39 | Cardiology Consultation ---
Date of Consultation January 23, 2023 Assessment & Plan (1) Complete heart block, transient: Although complete heart block was transient today, he has had prior and repeated symptoms over time, suggesting this is a recurring phenomenon. He is not on any major negative chronotropic medications, only clonidine 0.1 mg twice daily (which should be held). Recommend permanent pacemaker, since he is hemodynamically stable and asymptomatic at rest even during episodes of complete heart block (due to adequate escape rhythm), he should remain at bedrest and will not require temporary transvenous pacemaker at this time. Dr. Jalloh is rounding tomorrow and could evaluate Mr. Rodriguez for potential permanent pacemaker placement early next week. (2) CAD (coronary artery disease): Remote infarct with stenting, no symptoms to suggest myocardial ischemia and troponin was negative despite the physiologic stress of bradycardia and hypertension. (3) CKD (chronic kidney disease), stage III: (4) HTN (hypertension): Would allow some degree of permissive hypertension and avoid long-acting agents. Could continue his lisinopril and use IV hydralazine on a PRN basis for acute BP elevations (>220 mmHg systolic or 110 mmHg diastolic). As noted, would hold clonidine, perhaps this could be resumed after his pacemaker (has been particularly effective for his labile hypertension). History of Present Illness Reason for Consultation: [facility] Requesting Physician: Patrick Wells MD Attending Physician: Patrick Wells MD History of Present Illness 82-year-old man with COPD/asthma, dyslipidemia, coronary artery disease (inferior infarct with RCA stent 2002, no remaining occlusive disease at that time and no ischemia on dobutamine stress echo 2014), and basilar artery aneurysm,who presents with several days of episodic lightheadedness and was f ound to be in complete heart block. At the time of an office visit just a few weeks ago, he did complain of a prior episode of lightheadedness sometime in mid December, but he had no further symptoms until just a few days ago. At recent baseline as well as up to the present, he has not noted any chest discomfort, subjective palpitations, orthopnea, PND, ankle edema, or weight gain. He has chronic mild dyspnea on exertion due to his underlying lung disease, this has not changed for some time and does not limit his routine activities of daily living. He has exhibited a mild bradycardia for some time, his pulse was 55 bpm during the recent office visit but increased to 70 bpm walking down the hallway (no symptoms) ER evaluation showed sinus rhythm with complete heart block and an idioventricu lar escape rhythm at 32 bpm. Fortunately, he was awake and hypertensive and symptom-free when sitting or lying down. At the time of my evaluation, his rhythm had returned to sinus at 60 bpm with a chronic nonspecific interventricular conduction delay. High-sensitivity troponin 15.7. Chest x-ray showed no pulmonary edema. At the time of my evaluation, he had no somatic complaints. Allergies Allergy/AdvReac Type Severity Reaction Status Date / Time hydrochlorothiazide AdvReac Mild myalgia Verified 01/23/23 15:51 [From Dyazide] triamterene [From Dyazide] AdvReac Mild myalgia Verified 01/23/23 15:51 Home Medications Medication Instructions Recorded Confirmed Type omeprazole 40 mg capsule,delayed 40 mg PO QAM 04/30/20 01/23/23 History release aspirin 81 mg tablet,delayed 162 mg PO DAILY #30 tabs 10/12/20 01/23/23 Rx release cholecalciferol (vitamin D3) 25 25 mcg PO DAILY #30 caps 10/12/20 01/23/23 Rx mcg (1,000 unit) capsule levetiracetam 500 mg tablet 500 mg PO BID 01/30/22 01/23/23 History ([place]) clonidine HCl 0.1 mg tablet 0.1 mg PO .COMPLEX #200 tabs 03/25/22 01/23/23 Rx ferrous sulfate 325 mg (65 mg 325 mg PO DAILY 09/16/22 01/23/23 History iron) tablet meloxicam 7.5 mg tablet 7.5 - 15 mg PO DAILY PRN Pain 09/16/22 01/23/23 History nitroglycerin 0.4 mg sublingual 0.4 mg sublingual Q5M PRN chest 09/16/22 01/23/23 Rx tablet pain #25 tabs atorvastatin 80 mg tablet 80 mg PO HS #90 tabs 10/21/22 01/23/23 Rx ipratropium 0.5 mg-albuterol 3 mg 3 ml inhalation QID PRN wheezing 10/21/22 01/23/23 Rx (2.5 mg base)/3 mL nebulization #180 mL soln lisinopril 30 mg tablet 30 mg PO QAM 12/15/22 01/23/23 History furosemide 40 mg tablet 40 mg PO DIRECTED PRN .weight 01/23/23 01/23/23 History gain > 180 Patient History Medical History Anemia Basilar artery aneurysm CAD (coronary artery disease) Carotid bruit Dermatitis Erectile dysfunction Gastro-esophageal reflux disease with esophagitis Gout History of [place] (myocardial infarction) Iron deficiency LVH (left ventricular hypertrophy) Osteoarthrosis Vertigo Vitamin D deficiency Surgical History History of back surgery History of intravascular stent placement Family History (Updated 01/23/23 @ 16:32 by Betsy Joyner PA-C) Mother Cancer Father Cancer Stroke Brother Cancer Son Diabetes Hypertension Social History Smoking Status: Unknown if ever smoked Tobacco Type: Cigarettes Age Started Using Tobacco: 15; packs per day: 3; Hx Substance Use: No Preferred Language: Swedish Communication Ability: Effective Orthopedics Nurse Required: No Beliefs That Will Affect Care: None marital status: Life Partner Current Living Situation: Spouse Feels Safe at Home: Yes Assistive Devices: Denture - Upper, Denture - Lower, Glasses and Hearing Aid - Bilateral Physical Exam Physical Exam: No distress. Weight unchanged over the past year. BP 173/78 mmHg. Pulse 60 bpm and regular. Skin: no ecchymoses or generalized lesions. HEENT: unremarkable. Neck: Jugular venous pulse at the clavicle. No carotid bruits. Lungs: moderately decreased breath sounds, generally clear, no accessory muscle use. Cardiac: regular rhythm with faint heart sounds and no murmur or gallop. Abdomen: benign. Extremities: No pretibial edema, pulses palpable. Neurologic: normal affect, nonfocal, hard of hearing. Results & Data Laboratory Results Hemoglobin 12.2 with normal white count and platelet count. Sodium 134, potassium 4.9, BUN 21, creatinine 1.43. TSH 5.3, free T4 0.84. High-sensitivity troponin 15.7. Diagnostic Findings ECG and chest x-ray as noted in HPI. PG Care Time/CCT Total # of Minutes Spent Total Time Spent with Patient: Total time spent is greater than 50% in coordination of care (as documented) at patient's floor/unit and/or counseling patient: Coding Level of Care Code 03961 IN/OBS CONSULT LVL 4,60M Diagnoses Complete heart block, transient I44.2 CAD (coronary artery disease) I25.10 CKD (chronic kidney disease), stage III N18.3 HTN (hypertension) I10
[2023-01-23] MEDS ORDERED: ONDANSETRON INJ 2 MG/ML 2 ML VIAL IV PRN (18:00)
[2023-01-23] MEDS ORDERED: NITROGLYCERIN SL 0.4 MG/TAB TAB SL PRN (18:00)
[2023-01-23] MEDS: ATORVASTATIN 40 MG TAB PO SCH (20:18)
[2023-01-23] MEDS: levETIRAcetam 500 MG TAB PO SCH (20:18)
[2023-01-23] MEDS: HEPARIN SOD 5,000 UNIT/0.5 ML VIAL SQ SCH (21:30)
[2023-01-24 06:18] LABS: Hematocrit (blood only) 37.6 % (42.0-52.0); Hemoglobin 11.9 g/dl (14.0-18.0); Mean Corpuscular Hgb Conc 31.6 g/dL (32.0-36.0); Mean Corpuscular Volume 82.3 fL (80.0-100.0); Mean Platelet Volume 11.1 fL (9.4-12.4); Platelet Count 246 K/uL (130-400); RDW Coefficient of Variation 13.7 % (11.5-14.5); RDW Standard Deviation 40.8 fL (36.4-46.3); Red Blood Count 4.57 M/uL (4.70-6.10); White Blood Count 7.46 K/ul (4.8-10.8)
[2023-01-24 06:32] LABS: BUN Creatinine Ratio 15.6 (10-20); Calcium 9.1 mg/dl (8.6-10.3); Est GFR (African American) 60.9 ml/min; Est GFR (Non-African American) 52.5 ml/min; Magnesium 2.1 mg/dl (1.7-2.4); Potassium 4.8 mmol/L (3.5-5.1)
--- NOTE | 2023-01-24 06:45 | Electrocardiogram Report ---
Test Reason : Blood Pressure : / mmHG Vent. Rate : 054 BPM Atrial Rate : 054 BPM P-R Int : 232 ms QRS Dur : 140 ms QT Int : 520 ms P-R-T Axes : 072 099 -47 degrees QTc Int : 493 ms Sinus bradycardia with 1st degree A-V block with Fusion complexes Rightward axis Non-specific intra-ventricular conduction block T wave abnormality, consider inferior ischemia Abnormal ECG When compared with ECG of 23-JAN-2023 13:44, Sinus rhythm has replaced Idioventricular rhythm Vent. rate has increased BY 22 BPM Confirmed by Servando Jalloh ([id number]) on 01/24/2023 6:45:14 AM Referred By: REFERRED SELF Confirmed By:Mauricio Jalloh
[2023-01-24] MEDS: CHOLECALCIFEROL 1,000 UNITS 25 MCG TAB PO SCH (09:44)
[2023-01-24] MEDS: FERROUS SULFATE 325 MG TAB PO SCH (09:44)
[2023-01-24] MEDS: lisinopril 10 MG TAB PO SCH (09:44)
[2023-01-24] MEDS: HEPARIN SOD 5,000 UNIT/0.5 ML VIAL SQ SCH ×2 (09:44→20:07)
[2023-01-24] MEDS: levETIRAcetam 500 MG TAB PO SCH ×2 (09:46→20:06)
[2023-01-24] MEDS: ASPIRIN 81 MG ECTAB PO SCH (09:46)
[2023-01-24] MEDS: PANTOprazole 40 MG TAB PO SCH (09:47)
--- NOTE | 2023-01-24 10:39 | Electrocardiogram Report ---
Test Reason : Blood Pressure : / mmHG Vent. Rate : 032 BPM Atrial Rate : 072 BPM P-R Int : 000 ms QRS Dur : 138 ms QT Int : 736 ms P-R-T Axes : 080 -77 098 degrees QTc Int : 537 ms Sinus rhythm with high degree AV block and ventricular escape beats Left axis deviation Non-specific intra-ventricular conduction block Abnormal ECG When compared with ECG of 23-JAN-2023 16:34, There has been development of high degree AV block Confirmed by Servando Jalloh ([id number]) on 01/24/2023 10:39:08 AM Referred By: REFERRED SELF Confirmed By:Mauricio Jalloh
--- NOTE | 2023-01-24 12:02 | Cardiology Progress Note ---
Date of Service January 24, 2023 Assessment & Plan (1) Complete heart block, transient: Plan: He has high-degree heart block. At times he has better AV conduction and at other times he has complete heart block with ventricular escape rhythm. Blood pressure has remained stable. No overt symptoms while in bed. Given his overall good clinical condition currently will defer placement of a transvenous pacemaker. I did discuss implantation of a permanent pacemaker with the patient and we will proceed at the 1st opportunity which will be Thursday. For evidence of hemodynamic compromise or symptoms associated with the bradycardia transvenous pacemaker can be placed in the interim. Echocardiogram performed in August of this year at an outside facility suggested borderline normal LV systolic function. Will re-evaluate to determine the most appropriate device. (2) CAD (coronary artery disease): Plan: Remote infarct with stenting, no symptoms to suggest myocardial ischemia and troponin was negative despite the physiologic stress of bradycardia and hypertension. (3) CKD (chronic kidney disease), stage III: (4) HTN (hypertension): Plan: Continuing lisinopril. Admission and Anticipated Discharge Date Admission Date: January 23, 2023 Subjective This morning patient was feeling well and in fact was anxious for discharge. He specifically denies any symptoms of dizziness while in bed. No symptoms of chest pain or sense of palpitation. No breathing difficulty. Review of Systems Review of Systems: Per HPI Physical Exam Physical Exam: The patient is alert and oriented. Mood and affect appeared normal. He answered all questions appropriately. HEENT: Pupils are equal and reactive to light and accommodation. Extraocular movements are intact. The sclerae are anicteric. Neuro: Cranial nerves intact Neck: Patient's neck is supple. He has palpable carotid pulses bilaterally without bruits on auscultation. There is no evidence of jugular venous distention. The thyroid is not enlarged. Lungs: Clear to auscultation bilaterally. He has good air movement without use of accessory muscles. No rales wheezes or rhonchi. Cardiac: Heart demonstrates an irregular rhythm with bradycardia Pulses: The patient has palpable radial pulses bilaterally that are equal in intensity Extremities: There was no evidence of hypoperfusion. There is no cyanosis or clubbing. There is no edema. Skin: I did not appreciate any rashes on examination today. Results & Data Vital Signs (Past 12 Hours) Vital Signs Temp Pulse Resp BP BP Pulse Ox Pulse Ox 01/24/23 11:52 36.7 C 31 L 18 114/69 95 01/24/23 07:58 149/64 H 01/24/23 07:36 36.7 C 31 L 17 96 01/24/23 07:01 96 01/24/23 03:34 36.9 C 35 L 18 129/63 94 O2 Del Method O2 Del Method 01/24/23 11:52 Room Air 01/24/23 07:58 01/24/23 07:36 Room Air 01/24/23 07:01 Room Air 01/24/23 03:34 Room Air Laboratory Results Abnormal Lab Results 01/23/23 01/23/23 01/23/23 13:57 13:57 13:57 WBC 8.13 RBC 4.70 Hgb 12.2 L Hct 38.4 L MCV 81.7 MCH 26.0 MCHC 31.8 L RDW Std Deviation 40.6 RDW Coeff of Gibson 13.7 Plt Count 270 MPV 11.1 Immature Gran % (Auto) 0.7 Neut % (Auto) 69.6 Lymph % (Auto) 16.0 [place] % (Auto) 10.0 Eos % (Auto) 3.1 Baso % (Auto) 0.6 Neut # (Auto) 5.66 Lymph # (Auto) 1.30 [place] # (Auto) 0.81 H Eos # (Auto) 0.25 Baso # (Auto) 0.05 Immature Gran # (Auto) 0.06 Sodium 134 L Potassium 4.9 Chloride 102 Carbon Dioxide 27 Anion Gap 5 BUN 21 Creatinine 1.43 H Est Cr Clr Drug Dosing 43.9 Est GFR ( Amer) 53.2 Est GFR (Non-Af Amer) 45.9 BUN/Creatinine Ratio 14.7 Glucose 79 Calcium 9.4 Magnesium 2.1 Total Bilirubin 0.6 AST 22 ALT 17 Alkaline Phosphatase 140 H Total Creatine Kinase 140 Troponin I High Sens 15.7 Total Protein 7.2 Albumin 4.3 Globulin 2.9 Albumin/Globulin Ratio 1.5 TSH 5.329 H Free T4 0.84 Urine Color Urine Appearance Urine pH Ur Specific [place] Urine Protein Urine Glucose (UA) Urine Ketones Urine Blood Urine Nitrite Urine Bilirubin Urine Urobilinogen Ur Leukocyte Esterase Lyme Disease IgG Ab Lyme Disease IgM Ab SARS-CoV-2, RNA, NAAT 06/02/23 06/02/23 06/02/23 13:57 15:42 15:43 WBC RBC Hgb Hct MCV MCH MCHC RDW Std Deviation RDW Coeff of Gibson Plt Count MPV Immature Gran % (Auto) Neut % (Auto) Lymph % (Auto) [place] % (Auto) Eos % (Auto) Baso % (Auto) Neut # (Auto) Lymph # (Auto) [place] # (Auto) Eos # (Auto) Baso # (Auto) Immature Gran # (Auto) Sodium Potassium Chloride Carbon Dioxide Anion Gap BUN Creatinine Est Cr Clr Drug Dosing Est GFR ( Amer) Est GFR (Non-Af Amer) BUN/Creatinine Ratio Glucose Calcium Magnesium Total Bilirubin AST ALT Alkaline Phosphatase Total Creatine Kinase Troponin I High Sens Total Protein Albumin Globulin Albumin/Globulin Ratio TSH Free T4 Urine Color Yellow Urine Appearance Clear Urine pH 7.0 Ur Specific [place] 1.004 Urine Protein Negative Urine Glucose (UA) Negative Urine Ketones Negative Urine Blood Negative Urine Nitrite Negative Urine Bilirubin Negative Urine Urobilinogen Negative Ur Leukocyte Esterase Negative Lyme Disease IgG Ab Negative Lyme Disease IgM Ab Negative SARS-CoV-2, RNA, NAAT NEGATIVE 01/24/23 01/24/23 05:44 05:44 WBC 7.46 RBC 4.57 L Hgb 11.9 L Hct 37.6 L MCV 82.3 MCH 26.0 MCHC 31.6 L RDW Std Deviation 40.8 RDW Coeff of Gibson 13.7 Plt Count 246 MPV 11.1 Immature Gran % (Auto) Neut % (Auto) Lymph % (Auto) [place] % (Auto) Eos % (Auto) Baso % (Auto) Neut # (Auto) Lymph # (Auto) [place] # (Auto) Eos # (Auto) Baso # (Auto) Immature Gran # (Auto) Sodium 139 Potassium 4.8 Chloride 106 Carbon Dioxide 27 Anion Gap 6 BUN 20 Creatinine 1.28 Est Cr Clr Drug Dosing 49.0 Est GFR ( Amer) 60.9 Est GFR (Non-Af Amer) 52.5 BUN/Creatinine Ratio 15.6 Glucose 85 Calcium 9.1 Magnesium 2.1 Total Bilirubin AST ALT Alkaline Phosphatase Total Creatine Kinase Troponin I High Sens Total Protein Albumin Globulin Albumin/Globulin Ratio TSH Free T4 Urine Color Urine Appearance Urine pH Ur Specific [place] Urine Protein Urine Glucose (UA) Urine Ketones Urine Blood Urine Nitrite Urine Bilirubin Urine Urobilinogen Ur Leukocyte Esterase Lyme Disease IgG Ab Lyme Disease IgM Ab SARS-CoV-2, RNA, NAAT Diagnostic Findings echocardiogram performed 08/27/2022 at [facility]: ejection fraction 50%. Mildly decreased right ventricular systolic function. Mild aortic stenosis. Moderate mitral regurgitation. Mild mitral stenosis. PG Care Time/CCT Total # of Minutes Spent Total Time Spent with Patient: Total time spent is greater than 50% in coordination of care (as documented) at patient's floor/unit and/or counseling patient: Coding Level of Care Code 52791 SUB INP/OBS CARE 2/35MIN Diagnoses Complete heart block, transient I44.2 CAD (coronary artery disease) I25.10 CKD (chronic kidney disease), stage III N18.3 HTN (hypertension) I10
--- NOTE | 2023-01-24 13:53 | Hospitalist Progress Note ---
Date of Service January 24, 2023 Assessment & Plan (1) Complete heart block, transient: (2) Bradycardia: Plan: Complete heart block Clonidine discontinued Lyme screen negative TSH 5.3, normal free T4 Asymptomatic currently Appreciate cardiology input Avoid AV rikki blocking agents Plan for pacemaker placement on Thursday Monitor on telemetry (3) CAD (coronary artery disease): Plan: -Continue aspirin, atorvastatin (4) HTN (hypertension): Plan: Continue lisinopril Monitor (5) Dyslipidemia: Plan: - Continue atorvastatin (6) AAA (abdominal aortic aneurysm): Plan: - Vascular duplex reviewed within [facility] from 2017 - AAA s/p repair: mid aortic segment measures 3.7 x 3.7 cm. The distal aortic segment measures 1.9 x 1.9 cm. (7) COPD (chronic obstructive pulmonary disease): Plan: -H/O COPD Quit smoking over 30 years ago No signs of acute exacerbation (8) CKD (chronic kidney disease), stage III: Plan: -Baseline of 1.1-1.4, Monitor renal function Avoid nephrotoxic agents as able (9) Seizure disorder: Plan: Continue Keppra DVT Px: -Heparin SQ CODE STATUS: Full code Admission and Anticipated Discharge Date Admission Date: January 23, 2023 Subjective Patient is seen and examined at bedside Bradycardia noted on Monitor Patient denies any chest pain, dyspnea, dizziness, nausea, abdominal pain No other complaints Review of Systems Review of Systems: All systems reviewed & are unremarkable except as noted in Subjective Physical Exam Physical Exam: Physical Exam: Vitals signs as noted above General Appearance:Moderately built and nourished, no apparent distress Head: normocephalic, Atraumatic Eyes: normal inspection, EOMI Neck: supple, Trachea midline Respiratory/Chest: Normal breath sounds, CTA, No accessory muscle use Cardiovascular: S1, S2, Bradycardia, No murmur Abdomen/GI:Soft, Non tender, Bowel sounds present Extremities/Musculoskeletal:normal inspection, no edema Neurologic/Psych:AAOX2, grossly no focal neurological deficits, +Hearing impairment Skin: normal color, warm Results & Data Results & Data Vital Signs (Past 12 Hours) Vital Signs Temp Pulse Resp BP BP Pulse Ox Pulse Ox 01/24/23 11:52 36.7 C 31 L 18 114/69 95 01/24/23 07:58 149/64 H 01/24/23 07:36 36.7 C 31 L 17 96 01/24/23 07:01 96 01/24/23 03:34 36.9 C 35 L 18 129/63 94 O2 Del Method O2 Del Method 01/24/23 11:52 Room Air 01/24/23 07:58 01/24/23 07:36 Room Air 01/24/23 07:01 Room Air 01/24/23 03:34 Room Air Laboratory Results Short CBC 01/23/23 01/24/23 Range/Units 13:57 05:44 WBC 8.13 7.46 (4.8-10.8) K/ul Hgb 12.2 L 11.9 L (14.0-18.0) g/dl Hct 38.4 L 37.6 L (42.0-52.0) % Plt Count 270 246 (130-400) K/uL BMP 01/23/23 01/24/23 13:57 05:44 Sodium 134 L 139 Potassium 4.9 4.8 Chloride 102 106 Carbon Dioxide 27 27 BUN 21 20 Creatinine 1.43 H 1.28 Glucose 79 85 Calcium 9.4 9.1 Cardiac Enzymes 01/23/23 Range/Units 13:57 Total Creatine Kinase 140 (30-223) U/L Liver Function 01/23/23 Range/Units 13:57 Total Bilirubin 0.6 (0.2-1.0) mg/dl AST 22 (13-39) U/L ALT 17 (7-52) U/L Alkaline Phosphatase 140 H (34-104) U/L Albumin 4.3 (3.4-5.0) gm/dl Urine 01/23/23 Range/Units 15:43 Urine Color Yellow Urine Appearance Clear (Clear) Urine pH 7.0 (4.5-7.5) Ur Specific [place] 1.004 (1.000-1.030) Urine Protein Negative (Negative) Urine Glucose (UA) Negative (Negative)
--- NOTE | 2023-01-24 15:55 | XCELERA ---
[id number]
[2023-01-24] MEDS: ATORVASTATIN 40 MG TAB PO SCH (20:07)
[2023-01-25 06:38] LABS: Calcium 8.8 mg/dl (8.6-10.3); Creatinine Clr Calc Pharmacy 50.2 ml/min; Est GFR (African American) 62.6 ml/min; Magnesium 2.2 mg/dl (1.7-2.4); Potassium 4.3 mmol/L (3.5-5.1)
[2023-01-25] MEDS: ASPIRIN 81 MG ECTAB PO SCH (08:44)
[2023-01-25] MEDS: levETIRAcetam 500 MG TAB PO SCH ×2 (08:44→20:33)
[2023-01-25] MEDS: PANTOprazole 40 MG TAB PO SCH (08:45)
[2023-01-25] MEDS: CHOLECALCIFEROL 1,000 UNITS 25 MCG TAB PO SCH (08:45)
[2023-01-25] MEDS: FERROUS SULFATE 325 MG TAB PO SCH (08:45)
[2023-01-25] MEDS: lisinopril 10 MG TAB PO SCH (08:45)
[2023-01-25] MEDS: HEPARIN SOD 5,000 UNIT/0.5 ML VIAL SQ SCH ×2 (11:24→20:33)
--- NOTE | 2023-01-25 14:42 | Hospitalist Progress Note ---
Date of Service January 25, 2023 Assessment & Plan (1) Complete heart block, transient: (2) Bradycardia: Plan: Complete heart block Clonidine discontinued Lyme screen negative TSH 5.3, normal free T4 -ECHO: Left ventricle systolic function is normal. Left ventricle is mildly dilated. Left atrium is moderately dilated. Moderate mitral annular calcification. Moderate mitral regurgitation. Right ventricular systolic function is elevated at 40-50mm Hg . Asymptomatic currently Appreciate cardiology input Avoid AV rikki blocking agents Monitor on telemetry Plan for pacemaker placement tomorrow NPO after midnight (3) CAD (coronary artery disease): Plan: -Continue aspirin, atorvastatin (4) HTN (hypertension): Plan: Continue lisinopril Monitor (5) Dyslipidemia: Plan: - Continue atorvastatin (6) AAA (abdominal aortic aneurysm): Plan: - Vascular duplex reviewed within [facility] from 2017 - AAA s/p repair: mid aortic segment measures 3.7 x 3.7 cm. The distal aortic segment measures 1.9 x 1.9 cm. (7) COPD (chronic obstructive pulmonary disease): Plan: -H/O COPD Quit smoking over 30 years ago No signs of acute exacerbation (8) CKD (chronic kidney disease), stage III: Plan: -Baseline of 1.1-1.4 Monitor renal function Avoid nephrotoxic agents as able (9) Seizure disorder: Plan: Continue Keppra DVT Px: -Heparin SQ CODE STATUS: Full code Admission and Anticipated Discharge Date Admission Date: January 23, 2023 Subjective Patient is seen and examined at bedside Clinically no significant change from yesterday Persistent bradycardia on Monitor Patient denies any chest pain, dyspnea, dizziness, nausea, abdominal pain Review of Systems Review of Systems: All systems reviewed & are unremarkable except as noted in Subjective Physical Exam Physical Exam: Physical Exam: Vitals signs as noted above General Appearance:Moderately built and nourished, no apparent distress Head: normocephalic, Atraumatic Eyes: normal inspection, EOMI Neck: supple, Trachea midline Respiratory/Chest: Normal breath sounds, CTA, No accessory muscle use Cardiovascular: S1, S2, Bradycardia, No murmur Abdomen/GI:Soft, Non tender, Bowel sounds present Extremities/Musculoskeletal:normal inspection, no edema Neurologic/Psych:AAOX2, grossly no focal neurological deficits, +Hearing impairment Skin: normal color, warm Results & Data Results & Data Vital Signs (Past 12 Hours) Vital Signs Temp Pulse Resp BP BP Pulse Ox Pulse Ox 06/04/23 11:37 36.7 C 39 L 19 152/68 H 96 01/25/23 08:00 95 01/25/23 08:01 36.9 C 32 L 19 141/72 H 96 01/25/23 04:32 139/69 01/25/23 03:19 36.8 C 32 L 18 135/62 94 O2 Del Method O2 Del Method 01/25/23 11:37 Room Air 01/25/23 08:00 Room Air 01/25/23 08:01 Room Air 01/25/23 04:32 01/25/23 03:19 Room Air Laboratory Results BMP 01/25/23 05:49 Sodium 138 Potassium 4.3 Chloride 106 Carbon Dioxide 26 BUN 25 H Creatinine 1.25 Glucose 93 Calcium 8.8
[2023-01-25] MEDS: ATORVASTATIN 40 MG TAB PO SCH (20:33)
[2023-01-26] MEDS: lisinopril 10 MG TAB PO SCH (03:45)
[2023-01-26 06:38] LABS: Hematocrit (blood only) 40.3 % (42.0-52.0); Hemoglobin 12.6 g/dl (14.0-18.0); Mean Corpuscular Hemoglobin 25.8 pg (25.0-34.0); Mean Corpuscular Hgb Conc 31.3 g/dL (32.0-36.0); Mean Corpuscular Volume 82.4 fL (80.0-100.0); Mean Platelet Volume 11.3 fL (9.4-12.4); Platelet Count 268 K/uL (130-400); RDW Standard Deviation 41.3 fL (36.4-46.3); Red Blood Count 4.89 M/uL (4.70-6.10); White Blood Count 8.39 K/ul (4.8-10.8)
[2023-01-26] MEDS ORDERED: BUPIVACAINE 0.25% PF 30 ML VIAL ONE (07:03)
[2023-01-26] MEDS ORDERED: WATER, STERILE FOR INJ 10 ML VIAL ONE (07:03)
[2023-01-26] MEDS ORDERED: LIDOCAINE 1% LOCAL 20 ML VIAL ONE (07:03)
[2023-01-26] MEDS ORDERED: VANCOMYCIN HCL 1000MG/20ML VIAL ONE (07:03)
[2023-01-26 07:04] LABS: BUN Creatinine Ratio 18.9 (10-20); Calcium 8.9 mg/dl (8.6-10.3); Creatinine Clr Calc Pharmacy 51.4 ml/min; Est GFR (African American) 64.5 ml/min; Est GFR (Non-African American) 55.6 ml/min; Magnesium 2.2 mg/dl (1.7-2.4); Potassium 4.4 mmol/L (3.5-5.1)
--- NOTE | 2023-01-26 08:04 | Pre Anesthesia Assessment ---
Date of Service January 26, 2023 Pre Sedation Assessment Vital Signs Temp Pulse Pulse Resp BP Pulse Ox O2 Del Method 01/26/23 07:57 37 L 16 185/71 H 97 Room Air 01/26/23 06:45 56 L 01/26/23 05:40 162/70 H 01/26/23 05:22 161/78 H 01/26/23 04:07 155/132 H 01/26/23 03:28 177/78 H 01/26/23 03:18 37.1 C 40 L 16 179/67 H 93 Room Air 01/26/23 00:00 01/25/23 23:47 35 L 01/25/23 23:23 36.9 C 39 L 16 160/63 H 96 Room Air 01/25/23 20:19 176/75 H 01/25/23 19:46 194/84 H 01/25/23 19:21 36.7 C 40 L 16 93 Room Air 01/25/23 16:00 36.7 C 30 L 19 149/67 H 96 Room Air 01/25/23 11:37 36.7 C 39 L 19 152/68 H 96 Room Air O2 Del Method 01/26/23 07:57 01/26/23 06:45 01/26/23 05:40 01/26/23 05:22 01/26/23 04:07 01/26/23 03:28 01/26/23 03:18 01/26/23 00:00 Room Air 01/25/23 23:47 01/25/23 23:23 01/25/23 20:19 01/25/23 19:46 01/25/23 19:21 01/25/23 16:00 01/25/23 11:37 Cardiovascular + bradycardic Respiratory + respiratory effort normal Pre-Sedation Airway Assessment Smoking Status: Former smoker Hx Sleep Apnea: No Hx Difficult Intubation: No Short, Thick Neck: No Thyromental Distance: > or= 3.5 Finger Breadths Oral Cavity: + Dentures Mallampati Class: III ASA: ASA3 NPO Status Date of Last Intake of Fluids: 01/25/23 Time of Last Intake of Fluids: 17:00 Date of Last Intake of Solid Food: 01/25/23 Time of Last Intake of Solid Foods: 17:00 Procedure Planning Contraindications for Sedation: none Current Medications Reviewed: Yes Notes The planned sedation has been discussed with the patient. Informed Consent was obtained. I have identified the patient, determined the appropriateness of sedation and have assessed the patient immediately prior to the procedure. All medicine(s) and interventions are by my order.
[2023-01-26] MEDS ORDERED: MIDAZOLAM HCL 5 MG/ML 1 ML VIAL ONE (08:12)
[2023-01-26] MEDS ORDERED: ceFAZolin 330 MG/ML 1 GM VIAL ONE (08:13)
[2023-01-26] MEDS ORDERED: fentaNYL citrate PF 100 MCG/2 ML VIAL ONE (08:13)
--- NOTE | 2023-01-26 09:38 | Post Anesthesia Assessment ---
Date of Service January 26, 2023 Post Sedation Assessment Vital Signs Temp Pulse Pulse Resp BP Pulse Ox O2 Del Method 01/26/23 07:57 37 L 16 185/71 H 97 Room Air 01/26/23 06:45 56 L 01/26/23 05:40 162/70 H 01/26/23 05:22 161/78 H 01/26/23 04:07 155/132 H 01/26/23 03:28 177/78 H 01/26/23 03:18 37.1 C 40 L 16 179/67 H 93 Room Air 01/26/23 00:00 01/25/23 23:47 35 L 01/25/23 23:23 36.9 C 39 L 16 160/63 H 96 Room Air 01/25/23 20:19 176/75 H 01/25/23 19:46 194/84 H 01/25/23 19:21 36.7 C 40 L 16 93 Room Air 01/25/23 16:00 36.7 C 30 L 19 149/67 H 96 Room Air 01/25/23 11:37 36.7 C 39 L 19 152/68 H 96 Room Air O2 Del Method 01/26/23 07:57 01/26/23 06:45 01/26/23 05:40 01/26/23 05:22 01/26/23 04:07 01/26/23 03:28 01/26/23 03:18 01/26/23 00:00 Room Air 01/25/23 23:47 01/25/23 23:23 01/25/23 20:19 01/25/23 19:46 01/25/23 19:21 01/25/23 16:00 01/25/23 11:37 Recovery Score Activity: Moves 4 extremities Respiration: Deep Breath/Cough Circulation: +/-20% PreAnes Value Consciousness: Fully Awake Oxygen Saturation: > 92% On Room Air Discharge Sedation Level of Care: Fast Track Phase II Post Sedation Plan On clinical assessment, the patient appears to have tolerated the sedation without complications. Patient is recovering as anticipated. Patient will continue to be monitored by nursing and may be discharged when sedation discharge criteria are met per below protocol. Upon Completions of procedure up to 15 minutes continue every 5 minute vital signs and the P.A.R. score; then discharge to a Phase I or Fast Track to Phase II per the following guidelines: * Discharge Patient to appropriate Phase II area if PAR is 8 or greater or return to pre- procedure baseline. The post - procedure orders will be as directed. * If PAR score is less than 8 or not return to pre-procedure baseline then patie nt will follow Phase I monitoring till PAR is reached for Phase II. The Phase I may be done in procedure room or may call to secure a Phase I area. * If naloxone or flumazenil are used for reversal, hold in Phase I for continued monitoring from when last reversal dose was given for a minimum of 60 minutes or longer pending the nurse and/or physician discretion of patient condition before discharge to Phase II. Please call the Sedation Physician to re-evaluate and complete post-note for discharge to Phase II area. Do NOT discharge from procedure sedation or Phase 1 until post- sedation ev aluation note is complete by procedure /sedation MD Sedation Discharge Instructions to be given to the patient at discharge to home.
--- NOTE | 2023-01-26 09:39 | Electrophysiology Report ---
Date of Service January 26, 2023 Electrophysiology Procedure Electrophysiology Procedure Report Procedure performed: Implantation of dual-chamber permanent pacemaker with septal pacing lead Staff production truck driver: Servando Jalloh MD Indication: The patient is an 82-year-old gentleman who presented to the hospital with symptomatic bradycardia due to complete heart block. He is felt to be a good candidate for permanent pacemaker due to symptomatic nonreversible AV node dysfunction. A dual-chamber device was selected as he is currently in sinus rhythm and wished to maintain AV synchrony. Procedure in detail: The patient was informed of the risks benefits and alternatives to the intended procedure and she wished to proceed. He was taken to the electrophysiology suite in a fasting state. A preoperative antibiotic had been administered. The patient was monitored electrocardiographically throughout today's procedure and conscious sedation was administered per protocol. The left upper pectoral area is prepped and draped in usual sterile fashion. This area was anesthetized using subcutaneous administration of a xylocaine solution. An incision was made at this site and carried down to the prepectoralis fascia using sharp dissection. Electrocautery was also employed for dissection as well as for hemostasis. A device pocket was fashioned tissues above the pectoralis muscle. Subsequent to this maneuver the left axillary vein was accessed using modified Seldinger tech nique. Sheath was placed over guidewire and used to advance the atrial pacing lead to the ventricular apex for temporary pacing. A sheath was placed over the remaining guidewire and use facilitate passage of the guiding catheter for mapping of the interventricular septum. Once appropriate location was identified the ventricular lead was then advanced into the interventricular septum. Adequate sensing and threshold parameters were obtained prior to removal of the guiding catheter. The proximal portion of lead was then sutured to the prepectoralis fascia using nonabsorbable suture. The previously implanted right atrial lead was moved from the ventricle to the atrium. Adequate sensing and threshold parameters were obtained prior to active fixation of this lead to the endocardial surface. The proximal portion of lead was then sutured the prepectoralis fascia using nonabsorbable suture. The device pocket was irrigated with antibiotic solution. The leads were then attached to the d evice. The device and leads were then placed in the pocket and pocket was closed in 3 layers of absorbable suture. Steri-Strips and sterile dressing were applied. The device was tested noninvasively prior to conclusion the procedure. The patient tolerated procedure well there no immediate complications. Equipment used: New pulse generator: Developer [employer]. Model number: [id number] serial number [id number] Right atrial lead: Developer [employer] Medtr[employer]. Model number: [id number] serial number [id number] Right ventricular lead: Developer [employer]. Model number: [id number] serial number [id number] Measured data: Right atrial lead: P waves measured 1.8 mV. Pacing threshold was 0.5 V at 0.5 ms with a pacing impedance of 604 ohms Right ventricular lead: R waves measured 12.5 mV. Pacing threshold was 1.1 V at 0.5 ms with a pacing impedance of 820 ohms Impression: Successful implantation of dual-chamber permanent pacemaker with septal pacing lead [facility] Electrophysiology codes Pacing Procedure 1: Pacin Insert/Replace Pacer A & V PG Moderate Sedation Codes Moderate Sedation Codes Procedure 1: Sedation/Anesthesia: 34082 Mod Sedation by the same physician;Init15 Min Child Age 5 & Up Procedure 2: Sedation/Anesthesia: 09735 Mod Sedation by the same physician; Ea [id number] Minutes
[2023-01-26] MEDS: HEPARIN SOD 5,000 UNIT/0.5 ML VIAL SQ SCH ×2 (10:52→20:07)
[2023-01-26] MEDS: PANTOprazole 40 MG TAB PO SCH (10:55)
[2023-01-26] MEDS: CHOLECALCIFEROL 1,000 UNITS 25 MCG TAB PO SCH (10:55)
[2023-01-26] MEDS: FERROUS SULFATE 325 MG TAB PO SCH (10:57)
[2023-01-26] MEDS: levETIRAcetam 500 MG TAB PO SCH ×2 (10:58→20:07)
[2023-01-26] MEDS: ASPIRIN 81 MG ECTAB PO SCH (10:58)
[2023-01-26] MEDS: ACETAMINOPHEN 325 MG TAB PO PRN ×2 (11:55→18:11)
[2023-01-26] MEDS: oxyCODONE HCL IR 5 MG TAB (IMMEDIATE RELEASE) PO PRN ×2 (11:56→18:10)
[2023-01-26] MEDS: MoRPHine SULFATE 2 MG/ML CARP IV PRN ×3 (12:43→23:00)
[2023-01-26] MEDS ORDERED: ceFAZolin 2000MG 2,000 MG/15 ML SYR IV ONE (16:00)
[2023-01-26] MEDS ORDERED: hydrALAZINE HCL 20 MG/ML VIAL IV PRN (17:40)
--- NOTE | 2023-01-26 17:42 | Hospitalist Progress Note ---
Date of Service January 26, 2023 Assessment & Plan (1) Complete heart block, transient: (2) Bradycardia: Plan: Complete heart block Clonidine discontinued Lyme screen negative TSH 5.3, normal free T4 -ECHO: Left ventricle systolic function is normal. Left ventricle is mildly dilated. Left atrium is moderately dilated. Moderate mitral annular calcification. Moderate mitral regurgitation. Right ventricular systolic function is elevated at 40-50mm Hg . Asymptomatic currently Appreciate cardiology input Avoid AV rikki blocking agents Monitor on telemetry S/P Plan for pacemaker placement on 01/26/23 Plan for chest x-ray tomorrow Needs follow-up with cardiology upon discharge Likely discharge tomorrow if stable (3) CAD (coronary artery disease): Plan: -Continue aspirin, atorvastatin (4) HTN (hypertension): Plan: Hypertensive urgency Continue lisinopril IV hydralazine as needed Monitor (5) Dyslipidemia: Plan: - Continue atorvastatin (6) AAA (abdominal aortic aneurysm): Plan: - Vascular duplex reviewed within [facility] from 2017 - AAA s/p repair: mid aortic segment measures 3.7 x 3.7 cm. The distal aortic segment measures 1.9 x 1.9 cm. (7) COPD (chronic obstructive pulmonary disease): Plan: -H/O COPD Quit smoking over 30 years ago No signs of acute exacerbation (8) CKD (chronic kidney disease), stage III: Plan: -Baseline of 1.1-1.4 Monitor renal function Avoid nephrotoxic agents as able (9) Seizure disorder: Plan: Continue Keppra DVT Px: -Heparin SQ CODE STATUS: Full code Admission and Anticipated Discharge Date Admission Date: January 23, 2023 Subjective Patient is seen and examined at bedside Had pacemaker placement earlier today Denies any pain at pacemaker site this morning but later reported pain to RN Eager to get discharged Offers no other complaints Discussed with patient's family at bedside Denies any chest pain, dyspnea, dizziness, nausea, abdominal pain Review of Systems Review of Systems: All systems reviewed & are unremarkable except as noted in Subjective Physical Exam Physical Exam: Physical Exam: Vitals signs as noted above General Appearance:Moderately built and nourished, no apparent distress Head: normocephalic, Atraumatic Eyes: normal inspection, EOMI Neck: supple, Trachea midline Respiratory/Chest: Normal breath sounds, CTA, No accessory muscle use Cardiovascular: S1, S2, Bradycardia, No murmur Abdomen/GI:Soft, Non tender, Bowel sounds present Extremities/Musculoskeletal:normal inspection, no edema Neurologic/Psych:AAOX2, grossly no focal neurological deficits, +Hearing impairment Skin: normal color, warm Results & Data Results & Data Vital Signs (Past 12 Hours) Vital Signs Temp Pulse Resp BP BP Pulse Ox Pulse Ox 01/26/23 16:00 36.8 C 68 18 154/90 H 96 01/26/23 14:44 96 01/26/23 13:00 67 132/77 01/26/23 12:30 77 135/83 01/26/23 12:00 75 135/83 01/26/23 11:30 65 149/75 H 01/26/23 11:26 36.8 C 63 18 149/75 H 94 01/26/23 11:30 36.8 C 64 18 149/75 H 94 01/26/23 10:40 36.7 C 77 18 156/90 H 96 01/26/23 10:26 36.7 C 77 18 156/90 H 96 01/26/23 10:20 37.6 C H 76 18 183/102 H 96 01/26/23 10:05 36.7 C 68 18 193/102 H 96 01/26/23 10:05 36.7 C 81 22 193/102 H 96 01/26/23 09:45 72 18 172/102 H 96 01/26/23 07:57 37 L 16 185/71 H 97 01/26/23 06:45 56 L 01/26/23 05:40 162/70 H O2 Del Method O2 Del Method 01/26/23 16:00 Room Air 01/26/23 14:44 Room Air 01/26/23 13:00 01/26/23 12:30 01/26/23 12:00 01/26/23 11:30 01/26/23 11:26 Room Air 01/26/23 11:30 Room Air 01/26/23 10:40 Room Air 01/26/23 10:26 Room Air 01/26/23 10:20 Room Air 01/26/23 10:05 Room Air 01/26/23 10:05 Room Air 01/26/23 09:45 Room Air 01/26/23 07:57 Room Air 01/26/23 06:45 01/26/23 05:40 Laboratory Results Short CBC 01/26/23 Range/Units 05:45 WBC 8.39 (4.8-10.8) K/ul Hgb 12.6 L (14.0-18.0) g/dl Hct 40.3 L (42.0-52.0) % Plt Count 268 (130-400) K/uL [facility] 01/26/23 05:45 Sodium 138 Potassium 4.4 Chloride 105 Carbon Dioxide 26 BUN 23 Creatinine 1.22 Glucose 101 H Calcium 8.9
[2023-01-26] MEDS: ATORVASTATIN 40 MG TAB PO SCH (20:07)
[2023-01-27 06:30] LABS: Hemoglobin 13.1 g/dl (14.0-18.0); Mean Corpuscular Hemoglobin 26.1 pg (25.0-34.0); Mean Corpuscular Hgb Conc 31.2 g/dL (32.0-36.0); Mean Corpuscular Volume 83.7 fL (80.0-100.0); Mean Platelet Volume 10.9 fL (9.4-12.4); Platelet Count 250 K/uL (130-400); RDW Coefficient of Variation 14.2 % (11.5-14.5); RDW Standard Deviation 42.6 fL (36.4-46.3); Red Blood Count 5.02 M/uL (4.70-6.10)
[2023-01-27 06:31] LABS: BUN Creatinine Ratio 18.3 (10-20); Calcium 9.3 mg/dl (8.6-10.3); Creatinine Clr Calc Pharmacy 52.3 ml/min; Est GFR (African American) 65.8 ml/min; Est GFR (Non-African American) 56.8 ml/min; Magnesium 2.1 mg/dl (1.7-2.4); Potassium 4.4 mmol/L (3.5-5.1)
--- NOTE | 2023-01-27 07:20 | XRay Report ---
XR chest 2V PA/lateral HISTORY: 82 years-old Male EXACT TIME ORDERED Evaluate for pneumothorax and l status post placement of a left subclavian pacer COMPARISON: 01/23/2023 TECHNIQUE: PA and lateral views of the chest FINDINGS: Limited lateral view secondary to upper cavity positioning. Cardiomediastinal and hilar silhouettes a re unchanged. Status post placement of a left subclavian dual-lead pacer. The leads appear intact. No postprocedural pneumothorax identified. Bones appear grossly intact. Hyperinflation with diaphragmat ic flattening. IMPRESSION: Status post placement of a dual lead left subclavian pacer. No postprocedural pneumothora x identified. ACT 112: Negative or not required by law. The above report was generated using voice recognition software. It may contain grammatical, syntax o r spelling errors. Electronically signed by: Bimal Chowdhury M.D. 01/27/2023 7:19 AM
[2023-01-27] MEDS: lisinopril 10 MG TAB PO SCH (08:56)
[2023-01-27] MEDS: PANTOprazole 40 MG TAB PO SCH (08:57)
[2023-01-27] MEDS: FERROUS SULFATE 325 MG TAB PO SCH (08:57)
[2023-01-27] MEDS: levETIRAcetam 500 MG TAB PO SCH (08:57)
[2023-01-27] MEDS: CHOLECALCIFEROL 1,000 UNITS 25 MCG TAB PO SCH (08:57)
[2023-01-27] MEDS: HEPARIN SOD 5,000 UNIT/0.5 ML VIAL SQ SCH (08:57)
[2023-01-27] MEDS: ASPIRIN 81 MG ECTAB PO SCH (08:57)
--- NOTE | 2023-01-27 09:03 | Cardiology Progress Note ---
Date of Service January 27, 2023 Assessment & Plan (1) Complete heart block, transient: Plan 1. Complete heart block: He appears have undergone successful pacemaker placement yesterday. No evident complication. He will be stable for discharge today in this regard. He should refrain from lifting left arm above shoulder behind the neck for 6 weeks. He should leave the Steri-Strips intact and keep the wound dry until follow-up in our clinic next week. I will arrange for the follow-up thank you Admission and Anticipated Discharge Date Admission Date: January 23, 2023 Subjective Feeling well. He did not report any discomfort at the device implant site. Physical Exam Physical Exam: Evaluation the device implant site reveals some mild ecchymosis. No significant swelling, hematoma, erythema or pain Results & Data Vital Signs (Past 12 Hours) Vital Signs Temp Pulse Pulse Resp BP BP Pulse Ox 01/27/23 07:36 36.9 C 87 18 01/26/23 23:45 169/86 H 01/27/23 02:44 36.5 C 67 16 156/96 H 94 01/27/23 00:00 01/26/23 22:00 64 01/26/23 22:50 36.6 C 71 24 181/86 H 94 O2 Del Method O2 Del Method 01/27/23 07:36 Room Air 01/26/23 23:45 01/27/23 02:44 Room Air 01/27/23 00:00 Room Air 01/26/23 22:00 01/26/23 22:50 Room Air Diagnostic Findings chest x-ray demonstrated stable lead position without pneumothorax Device interrogation revealed normal function on the atrial and ventricular leads.
[2023-01-27] MEDS ORDERED: cloNIDine HCL 0.1 MG TAB PO SCH (09:30)
--- NOTE | 2023-01-27 13:25 | Hospitalist Progress Note ---
Date of Service January 27, 2023 Assessment & Plan (1) Complete heart block, transient: (2) Bradycardia: Plan: Complete heart block Clonidine discontinued Lyme screen negative TSH 5.3, normal free T4 -ECHO: Left ventricle systolic function is normal. Left ventricle is mildly dilated. Left atrium is moderately dilated. Moderate mitral annular calcification. Moderate mitral regurgitation. Right ventricular systolic function is elevated at 40-50mm Hg . Asymptomatic currently Appreciate cardiology input Avoid AV rikki blocking agents Monitor on telemetry S/P Plan for pacemaker placement on 01/26/23 Needs follow-up with cardiology upon discharge Needs pacemaker check in 1 week upon discharge as outpatient (3) CAD (coronary artery disease): Plan: -Continue aspirin, atorvastatin (4) HTN (hypertension): Plan: Hypertensive urgency Continue lisinopril Resume clonidine Monitor (5) Dyslipidemia: Plan: - Continue atorvastatin (6) AAA (abdominal aortic aneurysm): Plan: - Vascular duplex reviewed within [facility] from 2017 - AAA s/p repair: mid aortic segment measures 3.7 x 3.7 cm. The distal aortic segment measures 1.9 x 1.9 cm. (7) COPD (chronic obstructive pulmonary disease): Plan: -H/O COPD Quit smoking over 30 years ago No signs of acute exacerbation (8) CKD (chronic kidney disease), stage III: Plan: -Baseline of 1.1-1.4 Monitor renal function Avoid nephrotoxic agents as able (9) Seizure disorder: Plan: Continue Keppra DVT Px: -Heparin SQ CODE STATUS: Full code Disposition Home with home health Admission and Anticipated Discharge Date Admission Date: January 23, 2023 Subjective Patient is seen and examined at bedside Doing well today Offers no new complaints Discussed with cardiology today Blood pressure improved later this afternoon Denies any chest pain, dyspnea, dizziness, nausea, abdominal pain Plan to discharge home today Review of Systems Review of Systems: All systems reviewed & are unremarkable except as noted in Subjective Physical Exam Physical Exam: Physical Exam: Vitals signs as noted above General Appearance:Moderately built and nourished, no apparent distress Head: normocephalic, Atraumatic Eyes: normal inspection, EOMI Neck: supple, Trachea midline Respiratory/Chest: Normal breath sounds, CTA, No accessory muscle use Cardiovascular: S1, S2, Bradycardia, No murmur Abdomen/GI:Soft, Non tender, Bowel sounds present Extremities/Musculoskeletal:normal inspection, no edema Neurologic/Psych:AAOX2, grossly no focal neurological deficits, +Hearing impairment Skin: normal color, warm Results & Data Results & Data Vital Signs (Past 12 Hours) Vital Signs Temp Pulse Resp BP BP Pulse Ox Pulse Ox 01/27/23 08:00 96 01/27/23 07:36 36.9 C 87 18 197/102 H 01/27/23 02:44 36.5 C 67 16 156/96 H 94 O2 Del Method O2 Del Method 01/27/23 08:00 Room Air 01/27/23 07:36 Room Air 01/27/23 02:44 Room Air Laboratory Results Short CBC 01/27/23 Range/Units 05:57 WBC 10.60 (4.8-10.8) K/ul Hgb 13.1 L (14.0-18.0) g/dl Hct 42.0 (42.0-52.0) % Plt Count 250 (130-400) K/uL [facility] 01/27/23 05:57 Sodium 138 Potassium 4.4 Chloride 103 Carbon Dioxide 29 BUN 22 Creatinine 1.20 Glucose 111 H Calcium 9.3
--- NOTE | 2023-01-27 13:33 | Discharge Summary ---
Date of Service January 27, 2023 Admission HPI Per Admitting Provider This is an 82 yo M with PMHz of CAD s/p angioplasty with stent, HTN, AAA s/p repair, HLD, COPD, CKD stage III, seizure disorder, BPH, who presents to the hospital with bradycardia with hr in the 50s-60s, and he has been symptomatic with dizziness. Pt reports having episodes of dizziness intermittently within the past 3 days, and once previously about a month ago. Pt reports living by himself, and his Fiances's daughter, Essie, helps him at home and today was checking on him because of having more dizziness, and upon trying to check the pulse ox could not get a read on the HR, therefore she brought him to the ER. He denies any chest pain, shortness of breath, abdominal complaints. Pt states he feels well enough to even go home presently, but understand that he should stay in the hospital and is agreeable to doing so. EKG reviewed showing NSR but then there are periods of AV dissociation, possible new onset 3rd degree block, with HR in the 30s. Pt is on clonidine daily. Pt follows with Dr. Lainez with cardiology as an outpatient. Discussed with Dr. Lainez at bedside and plan is to have the patient stay over this weekend and have pacemaker insertion on Thursday. Pt has previously smoked, and quit in 1988. Pt quit drinking alcohol around the same time. Admission Exam Per Admitting Provider General: awake, alert, no apparent distress Head: Normocephalic, atraumatic ENT: PERRL, EOMI, no pharyngeal exudate, mucous membranes moist, + dentures, + hard of hearing Chest: Clear to auscultation, on room air, pulse ox at 96%, no adventitious breath sounds Cardiac: Bradycardic, HR in mid 50s at bedside, no murmur, no JVD, normal peripheral pulses, good capillary refill, appears euvolemic Abdominal: NABS x 4 quadrants, soft, nondistended, nontender to palpation, no rebound or guarding Extremities: Normal inspection, no peripheral edema or erythema, calfs nontender to palpation Psych: Normal mood and affect Neuro: AAO x 3, strength intact bilaterally and rated 5/5, no motor deficits, speech is clear, no peripheral sensory deficits Principal Diagnosis Complete heart block S/P PPM Discharge Data Allergies Allergy/AdvReac Type Severity Reaction Status Date / Time hydrochlorothiazide AdvReac Mild myalgia Verified 01/23/23 15:51 [From Dyazide] triamterene [From Dyazide] AdvReac Mild myalgia Verified 01/23/23 15:51 Consultations 01/23/23 15:31 ED Decision to Admit Stat 01/23/23 18:00 Consult Cardiology Routine Procedures Performed Operation Date: 01/26/23 08:00 Actual Procedures p Pacer with A/V Leads (Dual) - Servando Jalloh MD Laboratory Results WBC 10.60 K/ul (4.8-10.8) 01/27/23 05:57 RBC 5.02 M/uL (4.70-6.10) 01/27/23 05:57 Hgb 13.1 g/dl (14.0-18.0) L 01/27/23 05:57 Hct 42.0 % (42.0-52.0) 01/27/23 05:57 MCV 83.7 fL (80.0-100.0) 01/27/23 05:57 MCH 26.1 pg (25.0-34.0) 01/27/23 05:57 MCHC 31.2 g/dL (32.0-36.0) L 01/27/23 05:57 RDW Std Deviation 42.6 fL (36.4-46.3) 01/27/23 05:57 RDW Coeff of Gibson 14.2 % (11.5-14.5) 01/27/23 05:57 Plt Count 250 K/uL (130-400) 01/27/23 05:57 MPV 10.9 fL (9.4-12.4) 01/27/23 05:57 Immature Gran % (Auto) 0.7 % 01/23/23 13:57 Neut % (Auto) 69.6 % 01/23/23 13:57 Lymph % (Auto) 16.0 % 01/23/23 13:57 Bracken % (Auto) 10.0 % 01/23/23 13:57 Eos % (Auto) 3.1 % 01/23/23 13:57 Baso % (Auto) 0.6 % 01/23/23 13:57 Neut # (Auto) 5.66 K/uL (1.40-6.50) 01/23/23 13:57 Lymph # (Auto) 1.30 K/uL (1.2-3.4) 01/23/23 13:57 Bracken # (Auto) 0.81 K/uL (0.11-0.59) H 01/23/23 13:57 Eos # (Auto) 0.25 K/uL (0-0.50) 01/23/23 13:57 Baso # (Auto) 0.05 K/uL (0-0.2) 01/23/23 13:57 Immature Gran # (Auto) 0.06 K/uL (0.01-0.20) 01/23/23 13:57 Sodium 138 mmol/L (136-145) 01/27/23 05:57 Potassium 4.4 mmol/L (3.5-5.1) 01/27/23 05:57 Chloride 103 mmol/L (98-107) 01/27/23 05:57 Carbon Dioxide 29 mmol/L (21-32) 01/27/23 05:57 Anion Gap 6 (3-11) 01/27/23 05:57 BUN 22 mg/dl (6-23) 01/27/23 05:57 Creatinine 1.20 mg/dl (0.6-1.4) 01/27/23 05:57 Est Cr Clr Drug Dosing 52.3 ml/min 01/27/23 05:57 Est GFR ( Amer) 65.8 ml/min 01/27/23 05:57 Est GFR (Non-Af Amer) 56.8 ml/min 01/27/23 05:57 BUN/Creatinine Ratio 18.3 (10-20) 01/27/23 05:57 Glucose 111 mg/dl (70-99(Fasting)) H 01/27/23 05:57 Calcium 9.3 mg/dl (8.6-10.3) 01/27/23 05:57 Magnesium 2.1 mg/dl (1.7-2.4) 01/27/23 05:57 Total Bilirubin 0.6 mg/dl (0.2-1.0) 01/23/23 13:57 AST 22 U/L (13-39) 01/23/23 13:57 ALT 17 U/L (7-52) 01/23/23 13:57 Alkaline Phosphatase 140 U/L (34-104) H 01/23/23 13:57 Total Creatine Kinase 140 U/L (30-223) 01/23/23 13:57 Troponin I High Sens 15.7 pg/ml (0-20) 01/23/23 13:57 Total Protein 7.2 gm/dl (6.0-8.3) 01/23/23 13:57 Albumin 4.3 gm/dl (3.4-5.0) 01/23/23 13:57 Globulin 2.9 gm/dl (2.5-4.0) 01/23/23 13:57 Albumin/Globulin Ratio 1.5 (0.9-2) 01/23/23 13:57 TSH 5.329 uIu/ml (0.300-4.500) H 01/23/23 13:57 Free T4 0.84 ng/dl (0.61-1.60) 01/23/23 13:57 Urine Color Yellow 01/23/23 15:43 Urine Appearance Clear (Clear) 01/23/23 15:43 Urine pH 7.0 (4.5-7.5) 01/23/23 15:43 Ur Specific [place] 1.004 (1.000-1.030) 01/23/23 15:43 Urine Protein Negative (Negative) 01/23/23 15:43 Urine Glucose (UA) Negative (Negative) 01/23/23 15:43 Urine Ketones Negative (Negative) 01/23/23 15:43 Urine Blood Negative (Negative) 01/23/23 15:43 Urine Nitrite Negative (Negative) 01/23/23 15:43 Urine Bilirubin Negative (Negative) 01/23/23 15:43 Urine Urobilinogen Negative (Negative) 01/23/23 15:43 Ur Leukocyte Esterase Negative (Negative) 01/23/23 15:43 Lyme Disease IgG Ab Negative (Negative) 01/23/23 13:57 Lyme Disease IgM Ab Negative (Negative) 01/23/23 13:57 SARS-CoV-2, RNA, NAAT NEGATIVE (NEGATIVE) 01/23/23 15:42 Impressions Chest X-Ray 01/27/23 07:00 XR chest 2V PA/lateral HISTORY: 82 years-old Male EXACT TIME ORDERED Evaluate for pneumothorax and l status post placement of a left subclavian pacer COMPARISON: 01/23/2023 TECHNIQUE: PA and lateral views of the chest FINDINGS: Limited lateral view secondary to upper cavity positioning. Cardiomediastinal and hilar silhouettes are unchanged. Status post placement of a left subclavian dual-lead pacer. The leads appear intact. No postprocedural pneumothorax identified. Bones appear grossly intact. Hyperinflation with diaphragmatic flattening. IMPRESSION: Status post placement of a dual lead left subclavian pacer. No postprocedural pneumothorax identified. ACT 112: Negative or not required by law. The above report was generated using voice recognition software. It may contain grammatical, syntax or spelling errors. Electronically signed by: Bimal Chowdhury M.D. 01/27/2023 7:19 AM Ordered Studies 01/26/23 07:45 EP Lab Images for PACS ONCE Hospital Course (1) Complete heart block, transient: (2) Bradycardia: Complete heart block Clonidine discontinued Lyme screen negative TSH 5.3, normal free T4 -ECHO: Left ventricle systolic function is normal. Left ventricle is mildly dilated. Left atrium is moderately dilated. Moderate mitral annular calcification. Moderate mitral regurgitation. Right ventricular systolic function is elevated at 40-50mm Hg . Asymptomatic currently Appreciate cardiology input Avoid AV rikki blocking agents Monitor on telemetry S/P Plan for pacemaker placement on 01/26/23 Needs follow-up with cardiology upon discharge Needs pacemaker check in 1 week upon discharge as outpatient (3) CAD (coronary artery disease): -Continue aspirin, atorvastatin (4) HTN (hypertension): Hypertensive urgency Continue lisinopril Resume clonidine Monitor (5) Dyslipidemia: - Continue atorvastatin (6) AAA (abdominal aortic aneurysm): - Vascular duplex reviewed within [facility] from 2017 - AAA s/p repair: mid aortic segment measures 3.7 x 3.7 cm. The distal aortic segment measures 1.9 x 1.9 cm. (7) COPD (chronic obstructive pulmonary disease): -H/O COPD Quit smoking over 30 years ago No signs of acute exacerbation (8) CKD (chronic kidney disease), stage III: -Baseline of 1.1-1.4 Monitor renal function Avoid nephrotoxic agents as able (9) Seizure disorder: Continue Keppra DVT Px: -Heparin SQ CODE STATUS: Full code Disposition Home with home health Total Time Total Time Spent Total Time Spent (In Minutes): 55 minutes Discharge Plan Discharge Items Patient Disposition: Home - Home Health Services Reason For Visit: 3RD DEGREE HEART BLOCK Discharge Diagnosis: Complete heart block S/P PPM Activity: Per Instructions section Lifting: No more than 10 pounds Lifting Comment: no lifting left arm above shoulder behind neck for 6 weeks Bathing: Keep incision dry Bathing Comment: keep wound dry and Steri-Strips intact until follow-up Exercise/Sports: Wait until after follow-up appointment Non-emergency contact: Primary Care Provider and [employer] And Scrap Crusher Call non-emergency contact if: you have any medication questions, your pain is concerning for you and you have a fever Follow-up/Referrals: Servando Jalloh MD [Physician] - (The cardiology office will call you with an appt for follow up) Kayode Robertson PA-C [Primary Care Provider] - 02/02/23 2:00 pm Diet: Heart Healthy Emiliano Attending Provider Instructions: Follow-up with your primary care physician in 1 week Follow-up with your machine inspector Dr. Servando Jalloh in 1 week for pacemaker check. Seek immediate medical attention if your symptoms reoccur or worsen Please take all medications as instructed on discharge list below. Please call if you have any questions or problems. You can reach a [facility] hospitalist on duty at [facility] 24 hours a day by calling [phone] Bam Mutuel Cashier Provider Instructions: ACTIVITY RECOMMENDATIONS: * Do not raise affected arm above shoulder/pain in the neck for 6 weeks. SPECIAL CARE INSTRUCTIONS: * If bleeding occurs, apply direct pressure to area for 5 minutes. * Call your doctor if you have severe pain, fever, drainage or bleeding at site. * Keep dressing on and dry for 48 hours then remove. * Keep any scheduled doctor's appointment. * Implant Card - hand held device with website information given. SKIN IRRITATION: * You may experience some redness and/or swelling in the area where radiation was administered. If any skin irritation occurs, please contact your family physician. FOLLOW UP VISIT: Keep any scheduled doctor appointments. Pending Studies at Discharge: No Stand-Alone Forms: My [facility], Smoking Cessation Medications and DC Order Prescriptions: Continued aspirin 81 mg tablet,delayed release (DR/EC) 162 mg PO DAILY Qty: 30 2RF cholecalciferol (vitamin D3) 25 mcg (1,000 unit) capsule 25 mcg PO DAILY Qty: 30 0RF clonidine HCl 0.1 mg tablet 0.1 mg PO .COMPLEX Qty: 200 3RF Rx Instructions: 0.1 mg PO Take twice a day and may take one daily PRN for systolic BP greater than 200; atorvastatin 80 mg tablet 80 mg PO HS Qty: 90 3RF levetiracetam [Keppra] 500 mg tablet 500 mg PO BID ipratropium-albuterol 0.5 mg-3 mg(2.5 mg base)/3 mL solution for nebulization 3 ml INH QID PRN (Reason: wheezing) Qty: 180 4RF ferrous sulfate 325 mg (65 mg iron) tablet 325 mg PO DAILY meloxicam 7.5 mg tablet 7.5 - 15 mg PO DAILY PRN (Reason: Pain) nitroglycerin 0.4 mg tablet, sublingual 0.4 mg sublingual Q5M PRN (Reason: chest pain) Qty: 25 3RF Rx Instructions: do not exceed 3 doses per episode omeprazole 40 mg capsule,delayed release(DR/EC) 40 mg PO QAM lisinopril 30 mg tablet 30 mg PO QAM furosemide 40 mg tablet 40 mg PO DIRECTED PRN (Reason: .weight gain > 180) Rx Instructions: 40 mg PO Take twice a week for weight gain over 180lbs Discharge Orders: Discharge Order (Routine); Ordered 01/27/23 Ordered By: Chris Khan Admission Data Admit Date/Time: 01/23/23 15:42 Attending Provider: Chris Khan Admit Provider: Patrick Wells Primary Care Provider: Kayode Robertson Other Providers: Patrick Wells ; Clifton Lainez ; [facility]
--- NOTE | 2023-01-28 05:38 | Electrocardiogram Report ---
Test Reason : Blood Pressure : / mmHG Vent. Rate : 065 BPM Atrial Rate : 065 BPM P-R Int : 150 ms QRS Dur : 154 ms QT Int : 502 ms P-R-T Axes : 075 132 100 degrees QTc Int : 522 ms Atrial-sensed ventricular-paced rhythm Abnormal ECG When compared with ECG of 24-JAN-2023 06:33, Ventricular pacing is now present Confirmed by Tavo Gillespie ([id number]) on 01/28/2023 5:38:04 AM Referred By: REFERRED SELF Confirmed By:Tavo Gillespie
[2023-01-28] MEDS ORDERED: lisinopril 40 MG TAB PO SCH (09:00)
== END 2023-01-27 14:45 | disposition home health service (06) | DRG 244 ==
LOC: ED 13:31 → SUATTDRO 15:42 → 2E 15:42

== ENCOUNTER 2024-08-30 12:05 | Inpatient (IN) ==
--- NOTE | 2024-08-30 12:21 | ED Triage Note ---
Date of Service August 30, 2024 Provider in Triage Author: Shari Saini History of Present Illness This patient was briefly evaluated while in triage. An abbreviated physical exam was performed. This patient is a 84-year-old Male who presents to the ED for evaluation after seizure. Pt. was admitted to [facility], then was sent to [facility]. He was discharged from [facility] on Thursday. Pt. was found on the floor following presumed seizure on 08/16/2025 and was seen by [facility]. Pt. is on Keppra. No obvious seizure or CVA identified. At home last night, pt. had seizure lasting 4 minutes. Pt. refused ambulance treatment at the time, but PCP referred him here today. Physical Exam VITALS: Vitals are noted on the nurse's note and reviewed by myself. GENERAL: This is an 84 year old male, in no acute distress, nondiaphoretic, well-developed well-nourished. SKIN: No obvious rashes, edema, erythema HEAD: Normocephalic atraumatic. EYES: Conjunctivae without injection, sclerae without icterus. NECK: No JVD. LUNGS: No retractions or accessory muscle use. MUSCULOSKELETAL: Presents in a wheelchair NEURO: Patient was alert and oriented to person place and time. No focal neurological deficits. Initial orders for labs and / or imaging were placed and patient was placed in the waiting area until a bed is available. Please see further documentation for the full ED course.
[2024-08-30 13:07] LABS: Hematocrit (blood only) 38.3 % (42.0-52.0); Hemoglobin 12.2 g/dl (14.0-18.0); Mean Corpuscular Hemoglobin 25.7 pg (25.0-34.0); Mean Corpuscular Hgb Conc 31.9 g/dL (32.0-36.0); Mean Corpuscular Volume 80.6 fL (80.0-100.0); Mean Platelet Volume 10.3 fL (9.4-12.4); Platelet Count 370 K/uL (130-400); RDW Coefficient of Variation 14.8 % (11.5-14.5); RDW Standard Deviation 42.7 fL (36.4-46.3); Red Blood Count 4.75 M/uL (4.70-6.10); White Blood Count 12.19 K/ul (4.8-10.8)
[2024-08-30 13:25] LABS: Alanine Aminotransferase 51 U/L (7-52); Albumin Level 3.7 gm/dl (3.4-5.0); Alkaline Phosphatase 91 U/L (34-104); Anion Gap 6 (3-11); Aspartate Aminotransferase 41 U/L (13-39); Bilirubin Direct 0.3 mg/dl (0-0.2); Bilirubin,Total 0.9 mg/dl (0.2-1.0); Blood Urea Nitrogen 26 mg/dl (6-23); Calcium 9.1 mg/dl (8.6-10.3); Carbon Dioxide 29 mmol/L (21-32); Chloride 94 mmol/L (98-107); Creatinine Clr Calc Pharmacy 44.3 ml/min; Glucose 96 mg/dl (70-99(Fasting)); Magnesium 1.8 mg/dl (1.7-2.4); Phosphorus 3.3 mg/dl (2.5-4.9); Potassium 4.3 mmol/L (3.5-5.1); Sodium 129 mmol/L (136-145)
[2024-08-30 13:31] LABS: Troponin I High Sensitivity 30.4 pg/ml (0-20)
[2024-08-30 13:51] LABS: Appearance Urine Clear (Clear); Bilirubin Urine Negative (Negative); Blood Urine Negative (Negative); Color Urine Yellow; Glucose Urine UA Negative (Negative); Ketones Urine Negative (Negative); Leukocyte Esterase Urine Negative (Negative); Nitrite Urine Negative (Negative); Protein Urine Negative (Negative); Specific Gravity Urine 1.012 (1.000-1.030); Urobilinogen Urine Negative (Negative); pH Urine 5.5 (4.5-7.5)
[2024-08-30 14:19] LABS: Amphetamines+Metham, Urine Neg (Neg); Barbiturates, Urine Neg (Neg); Benzodiazepine, Urine Neg (Neg); Cocaine, Urine Neg (Neg); Fentanyl, Urine Neg (Neg); MDMA (Ecstacy), Urine Neg (Neg); Marijuana, Urine Neg (Neg); Methadone, Urine Neg (Neg); Opiate, Urine Neg (Neg); Phencyclidine, Urine Neg (Neg)
--- NOTE | 2024-08-30 15:28 | Emergency Department Note ---
ED Provider Note History of Present Illness Chief Complaint: Seizure Stated Complaint: SEIZURE LAST NIGHT, YAMILETH ALEM/FOUND ON FLOOR Time Seen by Provider: 08/30/24 15:26 Home Medications Medication Instructions Recorded Confirmed Type omeprazole 40 mg capsule,delayed 40 mg PO QAM 04/30/20 08/30/24 History release levetiracetam 500 mg tablet 500 mg PO BID 01/30/22 08/30/24 History (Keppra) meloxicam 7.5 mg tablet 7.5 - 15 mg PO DAILY PRN Pain 09/16/22 08/30/24 History nitroglycerin 0.4 mg sublingual 0.4 mg sublingual Q5M PRN chest 09/16/22 08/30/24 Rx tablet pain #25 tabs furosemide 40 mg tablet 40 mg PO UD PRN .weight gain > 180 01/23/23 08/30/24 History atorvastatin 80 mg tablet 80 mg PO HS #90 tabs 09/30/23 08/30/24 Rx ipratropium 0.5 mg-albuterol 3 mg 3 ml inhalation QID PRN wheezing 04/14/24 08/30/24 Rx (2.5 mg base)/3 mL nebulization #180 mL soln aspirin 81 mg tablet,delayed 81 mg PO QAM 07/25/24 08/30/24 History release (Adult Low Dose Aspirin) amlodipine 5 mg tablet 5 mg PO QAM 08/30/24 08/30/24 History Allergies Allergy/AdvReac Type Severity Reaction Status Date / Time hydrochlorothiazide AdvReac Mild myalgia Verified 07/25/24 13:14 [From Dyazide] triamterene [From Dyazide] AdvReac Mild myalgia Verified 07/25/24 13:14 Past Med/Surg History Problem List Aortic stenosis Pacemaker (01/2023) Dual-chamber Medtronic. Model number: [id number] serial number [id number] Dizziness (Acute) AAA (abdominal aortic aneurysm) Seizure disorder History of tobacco use History of asthma Bradycardia CAD (coronary artery disease) (Acute) Dyslipidemia (Acute) HTN (hypertension) (Acute) CKD (chronic kidney disease), stage III COPD (chronic obstructive pulmonary disease) STOREY (dyspnea on exertion) (Acute) Weakness (Acute) Vertigo (Acute) History of intravascular stent placement History of CT (myocardial infarction) Medical History Complete heart block, transient (01/2023) Vitamin D deficiency Osteoarthrosis LVH (left ventricular hypertrophy) Iron deficiency Gout Gastro-esophageal reflux disease with esophagitis Erectile dysfunction Dermatitis Carotid bruit CAD (coronary artery disease) Basilar artery aneurysm Anemia Vertigo History of CT (myocardial infarction) Surgical History History of back surgery History of intravascular stent placement Family History Mother Cancer Father Cancer Stroke Brother Cancer Son Diabetes Hypertension Social History Smoking Status: Former smoker Tobacco Type: Cigarettes Age Started Using Tobacco: 15; packs per day: 3; Second Hand Exposure: No; Hx Alcohol Use: No Hx Substance Use: No Preferred Language: Mohawk Communication Ability: Effective Neurosurgical Nurse Required: No Beliefs That Will Affect Care: None marital status: Life Partner Current Living Situation: Alone Feels Safe at Home: Yes Assistive Devices: None Physical Exam Vital Signs Vital Signs - 24 hr 08/30/24 12:19 08/30/24 13:55 08/30/24 16:48 Temperature 36.7 C Temperature Source Temporal Artery Scan Pulse Rate 59 L Pulse Rate [Right Finger] 97 H 73 Pulse Rhythm [Right Finger] Regular Pulse Strength Normal Pulse Strength [Right Finger] Normal Respiratory Rate 16 18 20 Respiratory Effort / Characteristics Non-Labored Spontaneous Respiratory Depth Normal Normal Normal Respiratory Pattern Regular Blood Pressure 160/72 H Blood Pressure [Right Arm] 132/92 130/69 Blood Pressure Mean 101 Blood Pressure Mean [Right Arm] 105 89 Blood Pressure Position Sitting Blood Pressure Position [Right Arm] Left Lateral Pulse Oximetry 96 96 95 Oxygen Delivery Method Room Air Room Air Room Air Sepsis Recent Fever Within 48 Hours No Sepsis New/Unexplained Change in Mental Status No Sepsis Action Taken by Nursing No Action Required Course Administered Medications Discontinued Medications Sodium Chloride (Nss) 500 mls @ 999 mls/hr IV .Q31M ONE Stop: 08/30/24 16:14 Last Admin: 08/30/24 16:16 Dose: 999 mls/hr Documented By: MACY Ioversol (Optiray 320 125ml) 115 ml IV ONCE ONE Stop: 08/30/24 16:20 Last Admin: 08/30/24 16:19 Dose: 115 ml Documented By: DELORES Medical Decision Making Laboratory Data 08/30/24 12:40 08/30/24 12:40 Lab Results 08/30/24 08/30/24 Range/Units 12:40 13:35 WBC 12.19 H (4.8-10.8) K/ul RBC 4.75 (4.70-6.10) M/uL Hgb 12.2 L (14.0-18.0) g/dl Hct 38.3 L (42.0-52.0) % MCV 80.6 (80.0-100.0) fL MCH 25.7 (25.0-34.0) pg MCHC 31.9 L (32.0-36.0) g/dL RDW Std Deviation 42.7 (36.4-46.3) fL RDW Coeff of Gibson 14.8 H (11.5-14.5) % Plt Count 370 (130-400) K/uL MPV 10.3 (9.4-12.4) fL Sodium 129 L (136-145) mmol/L Potassium 4.3 (3.5-5.1) mmol/L Chloride 94 L (98-107) mmol/L Carbon Dioxide 29 (21-32) mmol/L Anion Gap 6 (3-11) BUN 26 H (6-23) mg/dl Creatinine 1.37 (0.6-1.4) mg/dl Est Cr Clr Drug Dosing 44.3 ml/min eGFR 51.50 BUN/Creatinine Ratio 19.0 (10-20) Glucose 96 (70-99(Fasting)) mg/dl Calcium 9.1 (8.6-10.3) mg/dl Phosphorus 3.3 (2.5-4.9) mg/dl Magnesium 1.8 (1.7-2.4) mg/dl Total Bilirubin 0.9 (0.2-1.0) mg/dl Direct Bilirubin 0.3 H (0-0.2) mg/dl AST 41 H (13-39) U/L ALT 51 (7-52) U/L Alkaline Phosphatase 91 (34-104) U/L Total Creatine Kinase < 10 L (30-223) U/L Troponin I High Sens 30.4 H (0-20) pg/ml Total Protein 7.0 (6.0-8.3) gm/dl Albumin 3.7 (3.4-5.0) gm/dl Urine Color Yellow Urine Appearance Clear (Clear) Urine pH 5.5 (4.5-7.5) Ur Specific [place] 1.012 (1.000-1.030) Urine Protein Negative (Negative) Urine Glucose (UA) Negative (Negative) Urine Ketones Negative (Negative) Urine Blood Negative (Negative) Urine Nitrite Negative (Negative) Urine Bilirubin Negative (Negative) Urine Urobilinogen Negative (Negative) Ur Leukocyte Esterase Negative (Negative) Urine Opiates Screen Neg (Neg) Ur Methadone, Qual Neg (Neg) Urine Fentanyl Screen Neg (Neg) Urine Barbiturates Neg (Neg) Ur Phencyclidine (PCP) Neg (Neg) U Amphetamin/Meth Scrn Neg (Neg) MDMA (Ecstasy) Screen Neg (Neg) U Benzodiazepines Scrn Neg (Neg) Ur Cocaine Metabolite Neg (Neg) U Marijuana (THC) Screen Neg (Neg) Imaging Data Radiologist's Impression: Head CT 08/30/24 15:44 INDICATION: Seizure. COMPARISON: No relevant priors available TECHNIQUE: Axial CT images of the head were obtained without IV contrast. Coronal and sagittal reformations were reviewed. FINDINGS: Cabrera-white differentiation is relatively preserved. No mass, mass effect or midline shift. Chronic ischemic white matter changes. Mild cortical atrophy. No evidence of acute large territorial infarction or acute intracranial hemorrhage. Ventricles appear normal in size. Basal cisterns are patent. No depressed calvarial fracture. IMPRESSION: No acute intracranial process. Electronically signed by Andrew Webster 08-30-2024 4:53 PM Head CTA 08/30/24 15:44 CT angiogram of the neck CT angiogram of the brain with contrast Provided History: Seizure Comparison: None Technique: HEAD and NECK CTA: During rapid bolus intravenous injection of nonionic contrast material, axial images were obtained using thin collimation multidetector helical technique from the base of the neck through the Vertex of vertex of the head. This CT angiogram data was reconstructed at thin intervals with mild overlap. 3D reconstructions were obtained. The axial source images, multiplanar reformations, 3D reconstructions in both maximum intensity projection display and volume rendered models were reviewed. Dose reduction techniques were achieved by using automatic exposure control and/or adjustment of mA and/or kV according to patient size and/or use of iterative reconstruction technique. Findings: Head CTA demonstrates no stenosis of the major intracranial arteries. 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 No evidence for rupture. Moderate supraclinoid internal carotid artery calcifications. Neck CTA demonstrates no stenosis of the major cervical arteries. Moderate calcifications of the carotid bulbs bilaterally without associated stenosis. The origins of the great vessels from the aortic arch are patent. The normal distal right internal carotid artery measures 5 mm. The normal distal left internal carotid artery measures 5 mm. No mass is noted within the visualized portions of the cervical soft tissues or lung apices. Moderate emphysema. Impression: 1. Head CTA demonstrates a bilobed aneurysm, measuring approximately 4.0, and 2.0 mm, respectively, at the basilar artery. No large vessel occlusion or hemodynamically significant stenosis. 2. Neck CTA demonstrates no stenosis of the major cervical arteries. Electronically signed by Servando Villegas 08-30-2024 5:31 PM Neck CTA 08/30/24 15:44 CT angiogram of the neck CT angiogram of the brain with contrast Provided History: Seizure Comparison: None Technique: HEAD and NECK CTA: During rapid bolus intravenous injection of nonionic contrast material, axial images were obtained using thin collimation multidetector helical technique from the base of the neck through the Vertex of vertex of the head. This CT angiogram data was reconstructed at thin intervals with mild overlap. 3D reconstructions were obtained. The axial source images, multiplanar reformations, 3D reconstructions in both maximum intensity projection display and volume rendered models were reviewed. Dose reduction techniques were achieved by using automatic exposure control and/or adjustment of mA and/or kV according to patient size and/or use of iterative reconstruction technique. Findings: Head CTA demonstrates no stenosis of the major intracranial arteries. 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 No evidence for rupture. Moderate supraclinoid internal carotid artery calcifications. Neck CTA demonstrates no stenosis of the major cervical arteries. Moderate calcifications of the carotid bulbs bilaterally without associated stenosis. The origins of the great vessels from the aortic arch are patent. The normal distal right internal carotid artery measures 5 mm. The normal distal left internal carotid artery measures 5 mm. No mass is noted within the visualized portions of the cervical soft tissues or lung apices. Moderate emphysema. Impression: 1. Head CTA demonstrates a bilobed aneurysm, measuring approximately 4.0, and 2.0 mm, respectively, at the basilar artery. No large vessel occlusion or hemodynamically significant stenosis. 2. Neck CTA demonstrates no stenosis of the major cervical arteries. Electronically signed by Servando Villegas 08-30-2024 5:31 PM Discharge Plan Visit Data Chief Complaint: Seizure Stated Complaint: SEIZURE LAST NIGHT, YAMILETH ALEM/FOUND ON FLOOR ED Provider: Tabitha Ritter ED Midlevel Provider: Nayely Springer Forms Stand Alone Forms: My [facility] Prescriptions Prescriptions: No Action atorvastatin 80 mg tablet 80 mg PO HS Qty: 90 3RF ipratropium-albuterol 0.5 mg-3 mg(2.5 mg base)/3 mL solution for nebulization 3 ml INH QID PRN (Reason: wheezing) Qty: 180 4RF levetiracetam [Keppra] 500 mg tablet 500 mg PO BID meloxicam 7.5 mg tablet 7.5 - 15 mg PO DAILY PRN (Reason: Pain) nitroglycerin 0.4 mg tablet, sublingual 0.4 mg sublingual Q5M PRN (Reason: chest pain) Qty: 25 3RF Rx Instructions: do not exceed 3 doses per episode aspirin [Adult Low Dose Aspirin] 81 mg tablet,delayed release (DR/EC) 81 mg PO QAM omeprazole 40 mg capsule,delayed release(DR/EC) 40 mg PO QAM furosemide 40 mg tablet 40 mg PO UD PRN (Reason: .weight gain > 180) Rx Instructions: 40 mg PO Take twice a week for weight gain over 180lbs. 08/30/24:Per family, [facility] doesn't have furosemide listed. amlodipine 5 mg tablet 5 mg PO QAM Referrals Referrals: Julio Wolf [Primary Care Provider] -
[2024-08-30 16:08] LABS: Creatine Kinase < 10 U/L (30-223)
[2024-08-30] MEDS: SODIUM CHLORIDE 0.9% 500 ML IV ONE (16:16)
--- NOTE | 2024-08-30 16:17 | Electrocardiogram Report ---
Test Reason : Blood Pressure : */* mmHG Vent. Rate : 81 BPM Atrial Rate : 81 BPM P-R Int : 154 ms QRS Dur : 158 ms QT Int : 452 ms P-R-T Axes : 67 -58 96 degrees QTcB Int : 525 ms Atrial-sensed ventricular-paced rhythm with occasional Premature ventricular complexes Abnormal ECG When compared with ECG of 26-Jan-2023 12:24, Vent. rate has increased by 16 bpm Premature ventricular complexes now present Confirmed by Clifton Lainez ([id number]) on 08/30/2024 4:17:17 PM Referred By: Confirmed By: Clifton Lainez
[2024-08-30] MEDS: OPTIRAY 320 125ml IV ONE (16:19)
--- NOTE | 2024-08-30 16:55 | CT Scan Report ---
INDICATION: Seizure. COMPARISON: No relevant priors available TECHNIQUE: Axial CT images of the head were obtained without IV contrast. Coronal and sagittal reformations were reviewed. FINDINGS: Cabrera-white differentiation is relatively preserved. No mass, mass effect or midline shift. Chronic ischemic white matter changes. Mild cortical atrophy. No evidence of acute large territorial infarction or acute intracranial hemorrhage. Ventricles appear normal in size. Basal cisterns are patent. No depressed calvarial fracture. IMPRESSION: No acute intracranial process. Electronically signed by Andrew Webster 08-30-2024 4:53 PM
--- NOTE | 2024-08-30 17:31 | CT Scan Report ---
CT angiogram of the neck CT angiogram of the brain with contrast Provided History: Seizure Comparison: None Technique: HEAD and NECK CTA: During rapid bolus intravenous injection of nonionic contrast material, axial images were obtained using thin collimation multidetector helical technique from the base of the neck through the Vertex of vertex of the head. This CT angiogram data was reconstructed at thin intervals with mild overlap. 3D reconstructions were obtained. The axial source images, multiplanar reformations, 3D reconstructions in both maximum intensity projection display and volume rendered models were reviewed. Dose reduction techniques were achieved by using automatic exposure control and/or adjustment of mA and/or kV according to patient size and/or use of iterative reconstruction technique. Findings: Head CTA demonstrates no stenosis of the major intracranial arteries. 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 No evidence for rupture. Moderate supraclinoid internal carotid artery calcifications. Neck CTA demonstrates no stenosis of the major cervical arteries. Moderate calcifications of the carotid bulbs bilaterally without associated stenosis. The origins of the great vessels from the aortic arch are patent. The normal distal right internal carotid artery measures 5 mm. The normal distal left internal carotid artery measures 5 mm. No mass is noted within the visualized portions of the cervical soft tissues or lung apices. Moderate emphysema. Impression: 1. Head CTA demonstrates a bilobed aneurysm, measuring approximately 4.0, and 2.0 mm, respectively, at the basilar artery. No large vessel occlusion or hemodynamically significant stenosis. 2. Neck CTA demonstrates no stenosis of the major cervical arteries. Electronically signed by Servando Villegas 08-30-2024 5:31 PM
--- NOTE | 2024-08-30 17:37 | Emergency Department Note ---
ED Visit Note I was consulted by the Advanced Practice Provider, Nayely Springer PA-C. I performed a substantive portion of the visit. This includes aspects of: History: Patient is an 84-year-old male presenting with recurrent seizures. Patient reportedly was found unresponsive on [address] on the floor and was admitted at [facility] for stroke/seizure workup. He takes Keppra. Family member at bedside reports that the patient had a witnessed seizure episode today and she called 911. She reports that he was confused after his shaking-like episode. MDM: Laboratory workup interpreted by myself showed slight leukocytosis; hyponatremia (Na 129); elevated troponin (30.4). UA negative for infection. UDS negative. CT head without contrast negative for acute pathology. CTA head shows a aneurysm in the basilar artery. CTA neck negative for acute pathology. Given the patient's age and recurrent seizures over the last few weeks, will admit to hospital service for further evaluation and management. .
[2024-08-30] MEDS ORDERED: LORazepam 2 MG/1 ML VIAL IV PRN (18:46)
--- NOTE | 2024-08-30 19:22 | History & Physical Report ---
Date of Service August 30, 2024 Assessment & Plan (1) Breakthrough seizure: Plan: -has history of seizures, has been on keppra 500 mg bid -has not been seen by [facility] neurology in 2 years -given numerous events and increased frequency of seizures over past few weeks, warrants further investigation -other etiologies include arrythmias, CVA, NC, syncope, all of which are less likely in the setting of witnessed seizure by daughter Plan: -EEG ordered -MR head w/o contrast ordered -seizure precautions, ativan for seizure activity -continue keppra 500 mg bid for now -lab workup ordered, f/u keppra level, may need additional AED -neurology consult, appreciate recs (2) CAD (coronary artery disease): Plan: -continue aspirin, statin -monitor on telemetry (3) Aortic stenosis: Plan: -check echo in case related to seizure, or syncopal episode (4) Pacemaker: Plan: -will interrogate (5) History of tobacco use: Plan: -currently chews tobacco (6) CKD (chronic kidney disease), stage III: (7) Hyponatremia: Plan: -Na of 129 with low chloride suggests dehydration -target 135 in setting of seizures Plan: -trend sodium post fluids -encourage PO intake Plan Feeding/fluids: regular Analgesia: tylenol Sedation: none Thromboprophylaxis: lovenox Head up position: 30 degrees Ulcer prophylaxis: none Glycemic control: none Spontaneous breathing trial: none Bowel care: miralax Indwelling catheter removal: none Deescalation of antibiotics: none I spent a total of 75 minutes coordinating, documenting, and providing care for this patient excluding time spent in the performance of separately billed services. 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 Daughter is present and provides much of the history. Patient has a history of the occasional seizure however over the past couple weeks that she is having 3 seizures despite taking all medications. He takes Keppra and has not missed any doses. This morning he had a witnessed 1 minute seizure, shaking all extremities, loss of consciousness without tongue biting or incontinence. He states he has felt slightly fatigued and confused since then. He had a similar incident on [place]. Daughter suspects he has been having seizures on and off for the past 2 weeks. Had recent hospitalization at an outside hospital [facility] for seizures. Tobacco use alcohol use. CODE STATUS discussed at length patient, it is discussed, patient would not like resuscitation at this time. Allergies Allergy/AdvReac Type Severity Reaction Status Date / Time hydrochlorothiazide AdvReac Mild myalgia Verified 07/25/24 13:14 [From Dyazide] triamterene [From Dyazide] AdvReac Mild myalgia Verified 07/25/24 13:14 Home Medications Medication Instructions Recorded Confirmed Type omeprazole 40 mg capsule,delayed 40 mg PO QAM 04/30/20 08/30/24 History release levetiracetam 500 mg tablet 500 mg PO BID 01/30/22 08/30/24 History (Keppra) meloxicam 7.5 mg tablet 7.5 - 15 mg PO DAILY PRN Pain 09/16/22 08/30/24 History nitroglycerin 0.4 mg sublingual 0.4 mg sublingual Q5M PRN chest 09/16/22 08/30/24 Rx tablet pain #25 tabs furosemide 40 mg tablet 40 mg PO UD PRN .weight gain > 180 01/23/23 08/30/24 History atorvastatin 80 mg tablet 80 mg PO HS #90 tabs 09/30/23 08/30/24 Rx ipratropium 0.5 mg-albuterol 3 mg 3 ml inhalation QID PRN wheezing 04/14/24 08/30/24 Rx (2.5 mg base)/3 mL nebulization #180 mL soln aspirin 81 mg tablet,delayed 81 mg PO QAM 07/25/24 08/30/24 History release (Adult Low Dose Aspirin) amlodipine 5 mg tablet 5 mg PO QAM 08/30/24 08/30/24 History Past Med/Surg History Problem List (Updated 08/30/24 @ 19:36 by Abdi Willis MD) Hyponatremia Breakthrough seizure Aortic stenosis Pacemaker (01/2023) Dual-chamber Medtronic. Model number: [id number] serial number [id number] AAA (abdominal aortic aneurysm) Seizure disorder History of tobacco use History of asthma CAD (coronary artery disease) (Acute) Dyslipidemia (Acute) HTN (hypertension) (Acute) CKD (chronic kidney disease), stage III COPD (chronic obstructive pulmonary disease) Medical History Dizziness Bradycardia Weakness STOREY (dyspnea on exertion) Vertigo History of NC (myocardial infarction) Complete heart block, transient (01/2023) Vitamin D deficiency Osteoarthrosis LVH (left ventricular hypertrophy) Iron deficiency Gout Gastro-esophageal reflux disease with esophagitis Erectile dysfunction Dermatitis Carotid bruit Basilar artery aneurysm Anemia Surgical History History of intravascular stent placement History of back surgery Family History Mother Cancer Father Cancer Stroke Brother Cancer Son Diabetes Hypertension Social History Smoking Status: Former smoker Tobacco Type: Cigarettes Age Started Using Tobacco: 15; packs per day: 3; Second Hand Exposure: No; Hx Alcohol Use: No Hx Substance Use: No Preferred Language: Chinese Communication Ability: Effective Accounting Director Required: No Beliefs That Will Affect Care: None marital status: Life Partner Current Living Situation: Alone Feels Safe at Home: Yes Assistive Devices: None Review of Systems Review of Systems: CONSTITUTIONAL: feels slightly fatigued, slightly weak EYES: Patient denies any visual symptoms. EARS, NOSE, AND THROAT: No difficulties with hearing. No symptoms of rhinitis or sore throat. CARDIOVASCULAR: Patient denies chest pains, palpitations, orthopnea and paroxysmal nocturnal dyspnea. RESPIRATORY: No dyspnea on exertion, no wheezing or cough. GI: No nausea, vomiting, diarrhea, constipation, abdominal pain, hematochezia or melena. : No urinary hesitancy or dribbling. No nocturia or urinary frequency. No abnormal urethral discharge. MUSCULOSKELETAL: No myalgias or arthralgias. NEUROLOGIC: No chronic headaches, no seizures. Patient denies numbness, tingling or weakness. PSYCHIATRIC: Patient denies problems with mood disturbance. No problems with anxiety. ENDOCRINE: No excessive urination or excessive thirst. DERMATOLOGIC: Patient denies any rashes or skin changes. Physical Exam Physical Exam: Gen: A&O 3NAD HEENT: NCAT, EOMI, not icteric. External ears normal. No rhinorrhea. Moist mucous membranes. Neck: Supple, full range of motion, no observable masses, No meningeal sign. Lungs: No Respiratory distress. CV: RRR, no edema. Abdomen: Soft, nondistended, No rebound tenderness. MSK: No joint swelling, no redness. Skin: No rashes, petechiae, lesions. Normal color per patient. Neuro: Normal Gait, Grossly intact. No focal weakness noted Psych: Appropriate for situation. Results & Data Results & Data Vital Signs (Past 12 Hours) Vital Signs Temp Pulse Pulse Resp BP BP Pulse Ox 08/30/24 18:30 79 08/30/24 18:24 81 18 168/92 H 95 08/30/24 16:48 73 20 130/69 95 08/30/24 13:55 97 H 18 132/92 96 08/30/24 12:19 36.7 C 59 L 16 160/72 H 96 O2 Del Method 08/30/24 18:30 08/30/24 18:24 Room Air 08/30/24 16:48 Room Air 08/30/24 13:55 Room Air 08/30/24 12:19 Room Air Laboratory Results Laboratory Results WBC 12.19 K/ul (4.8-10.8) H 08/30/24 12:40 RBC 4.75 M/uL (4.70-6.10) 08/30/24 12:40 Hgb 12.2 g/dl (14.0-18.0) L 08/30/24 12:40 Hct 38.3 % (42.0-52.0) L 08/30/24 12:40 MCV 80.6 fL (80.0-100.0) 08/30/24 12:40 MCH 25.7 pg (25.0-34.0) 08/30/24 12:40 MCHC 31.9 g/dL (32.0-36.0) L 08/30/24 12:40 RDW Std Deviation 42.7 fL (36.4-46.3) 08/30/24 12:40 RDW Coeff of Gibson 14.8 % (11.5-14.5) H 08/30/24 12:40 Plt Count 370 K/uL (130-400) 08/30/24 12:40 MPV 10.3 fL (9.4-12.4) 08/30/24 12:40 Sodium 129 mmol/L (136-145) L 08/30/24 12:40 Potassium 4.3 mmol/L (3.5-5.1) 08/30/24 12:40 Chloride 94 mmol/L (98-107) L 08/30/24 12:40 Carbon Dioxide 29 mmol/L (21-32) 08/30/24 12:40 Anion Gap 6 (3-11) 08/30/24 12:40 BUN 26 mg/dl (6-23) H 08/30/24 12:40 Creatinine 1.37 mg/dl (0.6-1.4) 08/30/24 12:40 Est Cr Clr Drug Dosing 44.3 ml/min 08/30/24 12:40 eGFR 51.50 08/30/24 12:40 BUN/Creatinine Ratio 19.0 (10-20) 08/30/24 12:40 Glucose 96 mg/dl (70-99(Fasting)) 08/30/24 12:40 Calcium 9.1 mg/dl (8.6-10.3) 08/30/24 12:40 Phosphorus 3.3 mg/dl (2.5-4.9) 08/30/24 12:40 Magnesium 1.8 mg/dl (1.7-2.4) 08/30/24 12:40 Total Bilirubin 0.9 mg/dl (0.2-1.0) 08/30/24 12:40 Direct Bilirubin 0.3 mg/dl (0-0.2) H 08/30/24 12:40 AST 41 U/L (13-39) H 08/30/24 12:40 ALT 51 U/L (7-52) 08/30/24 12:40 Alkaline Phosphatase 91 U/L (34-104) 08/30/24 12:40 Total Creatine Kinase < 10 U/L (30-223) L 08/30/24 12:40 Troponin I High Sens 30.4 pg/ml (0-20) H 08/30/24 12:40 Total Protein 7.0 gm/dl (6.0-8.3) 08/30/24 12:40 Albumin 3.7 gm/dl (3.4-5.0) 08/30/24 12:40 Urine Color Yellow 08/30/24 13:35 Urine Appearance Clear (Clear) 08/30/24 13:35 Urine pH 5.5 (4.5-7.5) 08/30/24 13:35 Ur Specific [place] 1.012 (1.000-1.030) 08/30/24 13:35 Urine Protein Negative (Negative) 08/30/24 13:35 Urine Glucose (UA) Negative (Negative) 08/30/24 13:35 Urine Ketones Negative (Negative) 08/30/24 13:35 Urine Blood Negative (Negative) 08/30/24 13:35 Urine Nitrite Negative (Negative) 08/30/24 13:35 Urine Bilirubin Negative (Negative) 08/30/24 13:35 Urine Urobilinogen Negative (Negative) 08/30/24 13:35 Ur Leukocyte Esterase Negative (Negative) 08/30/24 13:35 Urine Opiates Screen Neg (Neg) 08/30/24 13:35 Ur Methadone, Qual Neg (Neg) 08/30/24 13:35 Urine Fentanyl Screen Neg (Neg) 08/30/24 13:35 Urine Barbiturates Neg (Neg) 08/30/24 13:35 Ur Phencyclidine (PCP) Neg (Neg) 08/30/24 13:35 U Amphetamin/Meth Scrn Neg (Neg) 08/30/24 13:35 MDMA (Ecstasy) Screen Neg (Neg) 08/30/24 13:35 U Benzodiazepines Scrn Neg (Neg) 08/30/24 13:35 Ur Cocaine Metabolite Neg (Neg) 08/30/24 13:35 U Marijuana (THC) Screen Neg (Neg) 08/30/24 13:[address] 08/30/24 15:44 INDICATION: Seizure. COMPARISON: No relevant priors available TECHNIQUE: Axial CT images of the head were obtained without IV contrast. Coronal and sagittal reformations were reviewed. FINDINGS: Cabrera-white differentiation is relatively preserved. No mass, mass effect or midline shift. Chronic ischemic white matter changes. Mild cortical atrophy. No evidence of acute large territorial infarction or acute intracranial hemorrhage. Ventricles appear normal in size. Basal cisterns are patent. No depressed calvarial fracture. IMPRESSION: No acute intracranial process. Electronically signed by Andrew Webster 08-30-2024 4:53 PM Head CTA 08/30/24 15:44 CT angiogram of the neck CT angiogram of the brain with contrast Provided History: Seizure Comparison: None Technique: HEAD and NECK CTA: During rapid bolus intravenous injection of nonionic contrast material, axial images were obtained using thin collimation multidetector helical technique from the base of the neck through the Vertex of vertex of the head. This CT angiogram data was reconstructed at thin intervals with mild overlap. 3D reconstructions were obtained. The axial source images, multiplanar reformations, 3D reconstructions in both maximum intensity projection display and volume rendered models were reviewed. Dose reduction techniques were achieved by using automatic exposure control and/or adjustment of mA and/or kV according to patient size and/or use of iterative reconstruction technique. Findings: Head CTA demonstrates no stenosis of the major intracranial arteries. 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 No evidence for rupture. Moderate supraclinoid internal carotid artery calcifications. Neck CTA demonstrates no stenosis of the major cervical arteries. Moderate calcifications of the carotid bulbs bilaterally without associated stenosis. The origins of the great vessels from the aortic arch are patent. The normal distal right internal carotid artery measures 5 mm. The normal distal left internal carotid artery measures 5 mm. No mass is noted within the visualized portions of the cervical soft tissues or lung apices. Moderate emphysema. Impression: 1. Head CTA demonstrates a bilobed aneurysm, measuring approximately 4.0, and 2.0 mm, respectively, at the basilar artery. No large vessel occlusion or hemodynamically significant stenosis. 2. Neck CTA demonstrates no stenosis of the major cervical arteries. Electronically signed by Servando Villegas 08-30-2024 5:31 PM Neck CTA 08/30/24 15:44 CT angiogram of the neck CT angiogram of the brain with contrast Provided History: Seizure Comparison: None Technique: HEAD and NECK CTA: During rapid bolus intravenous injection of nonionic contrast material, axial images were obtained using thin collimation multidetector helical technique from the base of the neck through the Vertex of vertex of the head. This CT angiogram data was reconstructed at thin intervals with mild overlap. 3D reconstructions were obtained. The axial source images, multiplanar reformations, 3D reconstructions in both maximum intensity projection display and volume rendered models were reviewed. Dose reduction techniques were achieved by using automatic exposure control and/or adjustment of mA and/or kV according to patient size and/or use of iterative reconstruction technique. Findings: Head CTA demonstrates no stenosis of the major intracranial arteries. 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 No evidence for rupture. Moderate supraclinoid internal carotid artery calcifications. Neck CTA demonstrates no stenosis of the major cervical arteries. Moderate calcifications of the carotid bulbs bilaterally without associated stenosis. The origins of the great vessels from the aortic arch are patent. The normal distal right internal carotid artery measures 5 mm. The normal distal left internal carotid artery measures 5 mm. No mass is noted within the visualized portions of the cervical soft tissues or lung apices. Moderate emphysema. Impression: 1. Head CTA demonstrates a bilobed aneurysm, measuring approximately 4.0, and 2.0 mm, respectively, at the basilar artery. No large vessel occlusion or hemodynamically significant stenosis. 2. Neck CTA demonstrates no stenosis of the major cervical arteries. Electronically signed by Servando Villegas 08-30-2024 5:31 PM Code Status & VTE Plan Code Status DNDNI VTE Prophylaxis Plan VTE Prophylaxis will be ordered: Yes (2) CAD (coronary artery disease) Coronary Disease-Associated Artery/Lesion type: [place] artery [place] vs. transplanted heart: [place] heart Associated angina: without angina Qualified Code(s): I25.10 - Atherosclerotic heart disease of [place] coronary artery without angina pectoris (3) Aortic stenosis Cardiac valve disease etiology: nonrheumatic Qualified Code(s): I35.0 - Nonrheumatic aortic (valve) stenosis (6) CKD (chronic kidney disease), stage III Chronic kidney disease stage 3 subtype: stage 3a (GFR 45-59) Qualified Code(s): N18.31 - Chronic kidney disease, stage 3a
[2024-08-30 19:52] LABS: Magnesium 1.9 mg/dl (1.7-2.4)
[2024-08-30 19:58] LABS: Troponin I High Sensitivity 32.2 pg/ml (0-20)
[2024-08-30 20:08] LABS: Thyroid Stimulating Hormone 3.179 uIu/ml (0.300-4.500)
[2024-08-30] MEDS ORDERED: POLYETHYLENE (MIRALAX) 17 GM PACK PO PRN (20:55)
[2024-08-30] MEDS ORDERED: ALBUT/IPRATROP 3MG/0.5MG NEB 3 ML VIAL INH PRN (20:55)
--- OUTSIDE RECORDS SUMMARY | 2024-08-30 20:59 | External Medical Summary ---
Author Name Unknown Address Unknown Organization [id number] [address] [place] [id number] Laboratory Report Ordering Provider Test Date Status ROSA MONTALVO 08/27/2024 06:52:44 Final Observation Date Value Abnormality Reference (Units ) Status BUN 08/27/2024 06:52:44 21 Above high normal 6-20 (mg/dL) Final Creatinine 08/27/2024 06:52:44 1.1 0.6-1.2 (mg/dL) Final Glomerular filtration rate/1.73 sq M.predicted [Volume Rate/Area] in Serum, Plasma or Blood by Creatinine-based formula (CKD-EPI) 08/27/2024 06:52:44 66 >=60 (mL/min) Final eGFR is calculated based on the CKD-EPI 2020 equation. Sodium 08/27/2024 06:52:44 139 135-146 (m mol/L) Final Potassium 08/27/2024 06:52:44 4.7 3.5-5.1 (m mol/L) Final Cl 08/27/2024 06:52:44 100 98-107 (mm ol/L) Final CO2 08/27/2024 06:52:44 28 22-32 (mmo l/L) Final Anion gap 08/27/2024 06:52:44 11 7-15 (mmol /L) Final Glucose 08/27/2024 06:52:44 100 70-120 (mg /dL) Final Calcium 08/27/2024 06:52:44 8.8 8.4-10.2 ( mg/dL) Final Performing Location [facility] [address] [place] [id number]
--- OUTSIDE RECORDS SUMMARY | 2024-08-30 20:59 | External Medical Summary ---
Author Name Unknown Address Unknown Organization [id number] [address] [place] [id number] Laboratory Report Ordering Provider Test Date Status ROSA MONTALVO 08/20/2024 08:08:03 Final Observation Date Value Abnormality Reference (Units ) Status WBC, Total 08/20/2024 08:08:03 6.44 4.00-10.8 0 (K/uL) Final RBC 08/20/2024 08:08:03 5.14 4.50-5.25 (M/uL) Final Hemoglobin 08/20/2024 08:08:03 13.5 Below low normal 14 .0-16.8 (g/dL) Final HCT 08/20/2024 08:08:03 42.5 40.0-48.4 (%) Final MCV 08/20/2024 08:08:03 82.7 82.0-99.5 (fL) Final MCH 08/20/2024 08:08:03 26.3 27.0-34.0 (pg) Final MCHC 08/20/2024 08:08:03 31.8 32.0-36.0 (g/dL) Final RDW 08/20/2024 08:08:03 14.3 11.5-15.5 (%) Final Platelets 08/20/2024 08:08:03 276 140-400 (K /uL) Final MPV 08/20/2024 08:08:03 10.8 6.6-11.1 ( fL) Final Performing Location [facility] [address] [place] [id number]
--- OUTSIDE RECORDS SUMMARY | 2024-08-30 20:59 | External Medical Summary ---
Author Name Unknown Address Unknown Organization [facility] [address] [place] [id number] Laboratory Report Ordering Provider Test Date Status ROSA MONTALVO 08/20/2024 08:08:03 Final Observation Date Value Abnormality Reference (Units ) Status BUN 08/20/2024 08:08:03 14 6-20 (mg/dL) Final Creatinine 08/20/2024 08:08:03 1.1 0.6-1.2 (mg/dL) Final Glomerular filtration rate/1.73 sq M.predicted [Volume Rate/Area] in Serum, Plasma or Blood by Creatinine-based formula (CKD-EPI) 08/20/2024 08:08:03 67 >=60 (mL/min) Final eGFR is calculated based on the CKD-EPI 2020 equation. Sodium 08/20/2024 08:08:03 137 135-146 (m mol/L) Final Potassium 08/20/2024 08:08:03 4.5 3.5-5.1 (m mol/L) Final Cl 08/20/2024 08:08:03 98 98-107 (mm ol/L) Final CO2 08/20/2024 08:08:03 27 22-32 (mmo l/L) Final Anion gap 08/20/2024 08:08:03 12 7-15 (mmol /L) Final Glucose 08/20/2024 08:08:03 133 Above high normal 70 -120 (mg/dL) Final Calcium 08/20/2024 08:08:03 9.0 8.4-10.2 ( mg/dL) Final Performing Location [facility] [address] [place] [id number]
--- OUTSIDE RECORDS SUMMARY | 2024-08-30 20:59 | External Medical Summary ---
Author Name Unknown Address Unknown Organization [id number] [place] [address] [place] [address] Laboratory Report Ordering Provider Test Date Status ROSA MONTALVO 08/27/2024 06:52:44 Final Observation Date Value Abnormality Reference (Units ) Status WBC, Total 08/27/2024 06:52:44 12.38 Above high normal 4 .00-10.80 (K/uL) Final RBC 08/27/2024 06:52:44 4.64 4.50-5.25 (M/uL) Final Hemoglobin 08/27/2024 06:52:44 12.1 Below low normal 14 .0-16.8 (g/dL) Final HCT 08/27/2024 06:52:44 39.5 Below low normal 40. 0-48.4 (%) Final MCV 08/27/2024 06:52:44 85.1 82.0-99.5 (fL) Final MCH 08/27/2024 06:52:44 26.1 27.0-34.0 (pg) Final MCHC 08/27/2024 06:52:44 30.6 32.0-36.0 (g/dL) Final RDW 08/27/2024 06:52:44 14.7 11.5-15.5 (%) Final Platelets 08/27/2024 06:52:44 318 140-400 (K /uL) Final MPV 08/27/2024 06:52:44 11.0 6.6-11.1 ( fL) Final Performing Location [facility] [address] [place] [id number]
[2024-08-30] MEDS: ATORVASTATIN 40 MG TAB PO SCH (21:57)
[2024-08-30] MEDS: ENOXAPARIN INJ 40 MG/0.4 ML SYR SQ SCH (21:57)
[2024-08-30] MEDS: levETIRAcetam 500 MG TAB PO SCH (21:57)
[2024-08-31 06:56] LABS: Hematocrit (blood only) 34.7 % (42.0-52.0); Hemoglobin 11.1 g/dl (14.0-18.0); Mean Corpuscular Hemoglobin 26.2 pg (25.0-34.0); Mean Corpuscular Volume 81.8 fL (80.0-100.0); Mean Platelet Volume 10.6 fL (9.4-12.4); Platelet Count 335 K/uL (130-400); RDW Coefficient of Variation 14.7 % (11.5-14.5); RDW Standard Deviation 43.8 fL (36.4-46.3); Red Blood Count 4.24 M/uL (4.70-6.10); White Blood Count 9.91 K/ul (4.8-10.8)
[2024-08-31 07:28] LABS: BUN Creatinine Ratio 19.8 (10-20); Calcium 8.7 mg/dl (8.6-10.3); Creatinine Clr Calc Pharmacy 54.6 ml/min; Potassium 4.4 mmol/L (3.5-5.1)
[2024-08-31] MEDS: ASPIRIN 81 MG ECTAB PO SCH (08:07)
[2024-08-31] MEDS: PANTOprazole 40 MG TAB PO SCH (08:07)
[2024-08-31] MEDS: amLODIPine BESYLATE 5 MG TAB PO SCH (08:07)
[2024-08-31] MEDS: levETIRAcetam 500 MG TAB PO SCH (08:07)
--- NOTE | 2024-08-31 09:45 | XRay Report ---
ORBIT RADIOGRAPHS 3 VIEWS HISTORY: pre-MRI screening. COMPARISON: Orbit radiographs January 09, [address] and CTA of the head August 30, 2024 FINDINGS: Two metallic foreign bodies are located within the anterior aspect of the right orbit. Thes e were present on prior radiographs. This is considered a contraindication to MRI IMPRESSION: Two small metallic foreign bodies within the anterior aspect of the right orbit. This is considered a contraindication to MRI. ACT 112: Negative or not required by law. Electronically signed by: Gulshan Vo M.D. 08/31/2024 9:44 AM
--- NOTE | 2024-08-31 15:21 | Neurology Consultation ---
Date of Consultation August 31, 2024 Assessment & Plan (1) Breakthrough seizure: Breakthrough seizure Agree with increased mandujano of Keppra Unable to obtain MRI Recommend obtain EEG Provide seizure precautions Utilize benzodiazepines emergently for any breakthrough clinical seizure like activity Continue frequent neurological assessments Obtain stat CT brain without contrast for any acute neurological decline Continue to monitor/control blood pressure & blood glucose Continue to monitor telemetry closely Continue to monitor renal and hepatic function, keep euvolemic Agree with continued metabolic workup, monitor/replace electrolytes as needed Ok from neurology perspective for VTE prophylaxis PT/OT/SLT to eval and treat Plan for continued outpatient followup with adult neurology Recommend continued followup with neuroendovascular team re: basilar artery aneurysm Telehealth Consultation Telehealth Information Telehealth Information: I performed this visit using a real-time telehealth connection between my location and the patients location ([facility]). After connecting through interactive tele-video, patient was identified by name and date of and/or wristband check.Patient (or authorized healthcare financial foundations representative) was informed that this was a telemedicine visit and it was being conducted confidentially over secure lines. My office door was closed and no one else was present in the room with me.Patient (or authorized healthcare financial foundations representative) provided consent to proceed with the visit, expressed an understanding of privacy and security of the telemedicine visit, and gave permission to have a hospital financial foundations representative in the room in order to assist with the visit and to conduct portions of the visit, as needed. I informed the patient (or authorized healthcare financial foundations representative) that I reviewed their record and presented the opportunity for them to ask any questions regarding the visit today. The patient agreed to participate. History of Present Illness Reason for Consultation: Seizure Requesting Physician: Dr. Asher Attending Physician: Greyson Asher, History of Present Illness 84yo, male with reported hx of seizure as well as significant cardiac history including aortic stenosis, symptomatic bradycardia s/p implanted pacer device, HTN, CAD s/p stenting, AAA repaired, HLD, CKD and known basilar artery aneurysm presented following witnessed seizure at home. Per documentation review, Daughter provided history upon presentation which described history of occasional seizure. He has been adherent with recommendation for twice daily Keppra. Unfortunately has had approx 3 seizures over the last two weeks. He has witnessed seizure day of presentation lasting approx one minute. Reported whole body shaking without tongue biting or loss of bowel/bladder continence. He was reportedly feeling fatigued following the event. He has undergone CT brain without contrast, personally reviewed, revealing no overt evidence of hemorrhage. CT angiographic studies of head and neck, also personally reviewed, reveal no overt evidence of large vessel occlusion or significant/flow limiting stenosis. There is noted 4mm basilar artery aneurysm. Allergies Allergy/AdvReac Type Severity Reaction Status Date / Time hydrochlorothiazide AdvReac Mild myalgia Verified 07/25/24 13:14 [From Dyazide] triamterene [From Dyazide] AdvReac Mild myalgia Verified 07/25/24 13:14 Home Medications Medication Instructions Recorded Confirmed Type omeprazole 40 mg capsule,delayed 40 mg PO QAM 04/30/20 08/30/24 History release levetiracetam 500 mg tablet 500 mg PO BID 01/30/22 08/30/24 History (Keppra) meloxicam 7.5 mg tablet 7.5 - 15 mg PO DAILY PRN Pain 09/16/22 08/30/24 History nitroglycerin 0.4 mg sublingual 0.4 mg sublingual Q5M PRN chest 09/16/22 08/30/24 Rx tablet pain #25 tabs furosemide 40 mg tablet 40 mg PO UD PRN .weight gain > 180 01/23/23 08/30/24 History atorvastatin 80 mg tablet 80 mg PO HS #90 tabs 09/30/23 08/30/24 Rx ipratropium 0.5 mg-albuterol 3 mg 3 ml inhalation QID PRN wheezing 04/14/24 08/30/24 Rx (2.5 mg base)/3 mL nebulization #180 mL soln aspirin 81 mg tablet,delayed 81 mg PO QAM 07/25/24 08/30/24 History release (Adult Low Dose Aspirin) amlodipine 5 mg tablet 5 mg PO QAM 08/30/24 08/30/24 History Patient History Medical History Dizziness Bradycardia Weakness MANDUJANO (dyspnea on exertion) Vertigo History of MD (myocardial infarction) Complete heart block, transient (01/2023) Vitamin D deficiency Osteoarthrosis LVH (left ventricular hypertrophy) Iron deficiency Gout Gastro-esophageal reflux disease with esophagitis Erectile dysfunction Dermatitis Carotid bruit Basilar artery aneurysm Anemia Surgical History History of intravascular stent placement History of back surgery Family History Mother Cancer Father Cancer Stroke Brother Cancer Son Diabetes Hypertension Social History Smoking Status: Former smoker Tobacco Type: Smokeless Tobacco (Dip or Chew) Age Started Using Tobacco: 15; packs per day: 3; Smoking End Date: 1989; Second Hand Exposure: No; Do You Dip or Chew Tobacco: Yes (1/2 can/day); Hx Alcohol Use: No Hx Substance Use: No Preferred Language: Icelandic Communication Ability: Impaired Bike Technician Required: No Beliefs That Will Affect Care: None marital status: Life Partner Current Living Situation: Alone Feels Safe at Home: Yes Assistive Devices: Walker Physical Exam Neurological Examination: Mental Status: Patient is severely hypoacusis Dyan RN helpful at bedside during televideo consultation/ neurological exam Awake and alert. Oriented to person, place, and time. Fluency naming repetition and comprehension appear grossly intact. Affect remains appropriate. CN testing: I: Denies changes in ability to smell II:Reports no changes in visual acuity III/IV/: No evidence of gaze preference, hippus, nystagmus or roving eye movements V: Facial sensation reportedly grossly intact to light touch bilaterally VII: Facial movements appear without evidence of asymmetry VIII: Severe hypoacusis IX/X: Palate appears to elevate symmetrically XI: Shoulder shrug appears symmetric/ grossly intact bilaterally XII: Tongue protrudes midline without evidence of biting Motor exam: Strength appears grossly intact/symmetric in all extremities Sensory: Sensation is reportedly grossly intact throughout Coordination: Deferred Reflexes: Deferred Gait: Deferred Results & Data Vital Signs (Past 12 Hours) Vital Signs Temp Pulse Pulse Resp BP BP Pulse Ox 08/31/24 15:16 36.8 C 73 18 151/88 H 94 08/31/24 13:07 70 08/31/24 11:37 36.8 C 74 17 138/73 95 08/31/24 10:42 08/31/24 07:41 36.7 C 60 18 127/74 95 08/31/24 05:42 72 O2 Del Method 08/31/24 15:16 Room Air 08/31/24 13:07 08/31/24 11:37 Room Air 08/31/24 10:42 Room Air 08/31/24 07:41 Room Air 08/31/24 05:42 Laboratory Results Abnormal lab results 08/30/24 08/30/24 08/30/24 Range/Units 12:40 19:19 21:39 RBC (4.70-6.10) M/uL Hgb (14.0-18.0) g/dl Hct (42.0-52.0) % RDW Coeff of Gibson (11.5-14.5) % Sodium (136-145) mmol/L Total Creatine Kinase < 10 L (30-223) U/L Troponin I High Sens 32.2 H 30.5 H (0-20) pg/ml 08/31/24 Range/Units 06:15 RBC 4.24 L (4.70-6.10) M/uL Hgb 11.1 L (14.0-18.0) g/dl Hct 34.7 L (42.0-52.0) % RDW Coeff of Gibson 14.7 H (11.5-14.5) % Sodium 134 L (136-145) mmol/L Total Creatine Kinase (30-223) U/L Troponin I High Sens (0-20) pg/ml Diagnostic Findings Head CT 08/30/24 15:44 INDICATION: Seizure. COMPARISON: No relevant priors available TECHNIQUE: Axial CT images of the head were obtained without IV contrast. Coronal and sagittal reformations were reviewed. FINDINGS: Cabrera-white differentiation is relatively preserved. No mass, mass effect or midline shift. Chronic ischemic white matter changes. Mild cortical atrophy. No evidence of acute large territorial infarction or acute intracranial hemorrhage. Ventricles appear normal in size. Basal cisterns are patent. No depressed calvarial fracture. IMPRESSION: No acute intracranial process. Electronically signed by Andrew Webster 08-30-2024 4:53 PM Head CTA 08/30/24 15:44 CT angiogram of the neck CT angiogram of the brain with contrast Provided History: Seizure Comparison: None Technique: HEAD and NECK CTA: During rapid bolus intravenous injection of nonionic contrast material, axial images were obtained using thin collimation multidetector helical technique from the base of the neck through the Vertex of vertex of the head. This CT angiogram data was reconstructed at thin intervals with mild overlap. 3D reconstructions were obtained. The axial source images, multiplanar reformations, 3D reconstructions in both maximum intensity projection display and volume rendered models were reviewed. Dose reduction techniques were achieved by using automatic exposure control and/or adjustment of mA and/or kV according to patient size and/or use of iterative reconstruction technique. Findings: Head CTA demonstrates no stenosis of the major intracranial arteries. 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 No evidence for rupture. Moderate supraclinoid internal carotid artery calcifications. Neck CTA demonstrates no stenosis of the major cervical arteries. Moderate calcifications of the carotid bulbs bilaterally without associated stenosis. The origins of the great vessels from the aortic arch are patent. The normal distal right internal carotid artery measures 5 mm. The normal distal left internal carotid artery measures 5 mm. No mass is noted within the visualized portions of the cervical soft tissues or lung apices. Moderate emphysema. Impression: 1. Head CTA demonstrates a bilobed aneurysm, measuring approximately 4.0, and 2.0 mm, respectively, at the basilar artery. No large vessel occlusion or hemodynamically significant stenosis. 2. Neck CTA demonstrates no stenosis of the major cervical arteries. Electronically signed by Servando Villegas 08-30-2024 5:31 PM Neck CTA 08/30/24 15:44 CT angiogram of the neck CT angiogram of the brain with contrast Provided History: Seizure Comparison: None Technique: HEAD and NECK CTA: During rapid bolus intravenous injection of nonionic contrast material, axial images were obtained using thin collimation multidetector helical technique from the base of the neck through the Vertex of vertex of the head. This CT angiogram data was reconstructed at thin intervals with mild overlap. 3D reconstructions were obtained. The axial source images, multiplanar reformations, 3D reconstructions in both maximum intensity projection display and volume rendered models were reviewed. Dose reduction techniques were achieved by using automatic exposure control and/or adjustment of mA and/or kV according to patient size and/or use of iterative reconstruction technique. Findings: Head CTA demonstrates no stenosis of the major intracranial arteries. 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 No evidence for rupture. Moderate supraclinoid internal carotid artery calcifications. Neck CTA demonstrates no stenosis of the major cervical arteries. Moderate calcifications of the carotid bulbs bilaterally without associated stenosis. The origins of the great vessels from the aortic arch are patent. The normal distal right internal carotid artery measures 5 mm. The normal distal left internal carotid artery measures 5 mm. No mass is noted within the visualized portions of the cervical soft tissues or lung apices. Moderate emphysema. Impression: 1. Head CTA demonstrates a bilobed aneurysm, measuring approximately 4.0, and 2.0 mm, respectively, at the basilar artery. No large vessel occlusion or hemodynamically significant stenosis. 2. Neck CTA demonstrates no stenosis of the major cervical arteries. Electronically signed by Servando Villegas 08-30-2024 5:31 PM Orbit X-Ray 08/31/24 20:08 ORBIT RADIOGRAPHS 3 VIEWS HISTORY: pre-MRI screening. COMPARISON: Orbit radiographs January 09, [address] and CTA of the head August 30, 2024 FINDINGS: Two metallic foreign bodies are located within the anterior aspect of the right orbit. These were present on prior radiographs. This is considered a contraindication to MRI IMPRESSION: Two small metallic foreign bodies within the anterior aspect of the right orbit. This is considered a contraindication to MRI. ACT 112: Negative or not required by law. Electronically signed by: Gulshan Vo M.D. 08/31/2024 9:44 AM Medications Administered Home Medications Medication Instructions Recorded Confirmed Last Taken omeprazole 40 mg capsule,delayed 40 mg PO QAM 04/30/20 08/30/24 08/30/24 release levetiracetam 500 mg tablet 500 mg PO BID 01/30/22 08/30/24 08/30/24 (Keppra) meloxicam 7.5 mg tablet 7.5 - 15 mg PO DAILY PRN Pain 09/16/22 08/30/24 12/15/22 08:00 nitroglycerin 0.4 mg sublingual 0.4 mg sublingual Q5M PRN chest 09/16/22 08/30/24 Unknown tablet pain #25 tabs furosemide 40 mg tablet 40 mg PO UD PRN .weight gain > 180 01/23/23 08/30/24 Unknown atorvastatin 80 mg tablet 80 mg PO HS #90 tabs 09/30/23 08/30/24 Unknown ipratropium 0.5 mg-albuterol 3 mg 3 ml inhalation QID PRN wheezing 04/14/2403/17 Unknown (2.5 mg base)/3 mL nebulization #180 mL soln aspirin 81 mg tablet,delayed 81 mg PO QAM 07/25/24 08/30/24 08/30/24 release (Adult Low Dose Aspirin) amlodipine 5 mg tablet 5 mg PO QAM 08/30/24 08/30/24 08/30/24 Active Medications Generic Name Dose Route Start Last Admin Trade Name Freq PRN Reason Stop Dose Admin Amlodipine Besylate 5 mg 08/31/24 09:00 08/31/24 08:07 Amlodipine Besylate 5 Mg Tab PO 09/30/24 08:59 5 mg QAM APOLLO Administration Aspirin 81 mg 08/31/24 09:00 08/31/24 08:07 Aspirin 81 Mg Ectab PO 09/30/24 08:59 81 mg QAM APOLLO Administration Atorvastatin Calcium 80 mg 08/30/24 21:00 08/30/24 21:57 Atorvastatin 40 Mg Tab PO 09/29/24 20:59 80 mg HS APOLLO Administration Enoxaparin Sodium 40 mg 08/30/24 21:00 08/30/24 21:57 Enoxaparin Inj 40 Mg/0.4 Ml Syr SQ 09/29/24 20:59 40 mg Q24H APOLLO Administration Levetiracetam 1,000 mg 08/31/24 09:00 08/31/24 08:07 Levetiracetam 500 Mg Tab PO 09/30/24 08:59 1,000 mg BID APOLLO Administration Pantoprazole Sodium 40 mg 08/31/24 09:00 08/31/24 08:07 Pantoprazole 40 Mg Tab PO 09/30/24 08:59 40 mg QAM APOLLO Administration
--- NOTE | 2024-08-31 16:27 | Hospitalist Progress Note ---
Date of Service August 31, 2024 Assessment & Plan (1) Breakthrough seizure: (2) CKD (chronic kidney disease), stage III: (3) COPD (chronic obstructive pulmonary disease): (4) HTN (hypertension): (5) Basilar artery aneurysm: Plan Patient with breakthrough seizures over the past few weeks. Increase Keppra 1000 mg 2 times daily EEG completed, report pending MRI brain could not be performed due to metallic foreign bodies and orbit. Physical therapy Occupational Therapy evaluation, patient is concerned about his weakness and may need short-term rehab Communication with neurology, agree with med changes. Recommending outpatient neurovascular eval for his basilar aneurysm. It does appear that this may be a known diagnosis for the patient since it appears on his chronic medical problem list. Attempted to contact patient's primary contact Ana Maria, daughter, no answer, un able to leave voicemail Admission and Anticipated Discharge Date Admission Date: August 30, 2024 Subjective Patient reports has not had any further seizures. However he is quite weak and deconditioned Physical Exam Physical Exam: Constitutional: Alert, nontoxic HEENT: Mucous membranes moist. Lungs: Clear to auscultation, decreased, no wheezes rales or rhonchi CV: S1-S2, regular Abdomen: Soft, nontender, nondistended Extremities: No significant edema Neuro: Moves all 4 extremities, strength appears to be grossly intact throughout Psych: Cooperative, normal mood Results & Data Results & Data Vital Signs (Past 12 Hours) Vital Signs Temp Pulse Pulse Resp BP BP Pulse Ox 08/31/24 15:16 36.8 C 73 18 151/88 H 94 08/31/24 13:07 70 08/31/24 11:37 36.8 C 74 17 138/73 95 08/31/24 10:42 08/31/24 07:41 36.7 C 60 18 127/74 95 08/31/24 05:42 72 O2 Del Method 08/31/24 15:16 Room Air 08/31/24 13:07 08/31/24 11:37 Room Air 08/31/24 10:42 Room Air 08/31/24 07:41 Room Air 08/31/24 05:42 Diagnostic Findings Reviewed imaging, laboratory and diagnostic studies. Pertinent findings as below. Orbit x-ray shows 2 small metallic foreign bodies in the right orbit. This therefore contraindicates moving forward with MRI Laboratory studies stable (2) CKD (chronic kidney disease), stage III Chronic kidney disease stage 3 subtype: stage 3a (GFR 45-59) Qualified Code(s): N18.31 - Chronic kidney disease, stage 3a
[2024-08-31] MEDS ORDERED: LORazepam 2 MG/1 ML VIAL IV PRN (16:28)
--- NOTE | 2024-08-31 22:39 | XCELERA ---
[id number] [id number]
--- NOTE | 2024-09-01 06:37 | Electroencephalogram ---
EEG Procedure Note Date of Service August 31, 2024 Start / End Times Start Time: 652 End Time: 712 Referring Physician Lazaro Patton MD History A 84 year old male w seizures. EEG performed for evaluation of epileptiform acitvity. Home Medication List Medication Instructions Recorded Confirmed Type omeprazole 40 mg capsule,delayed 40 mg PO QAM 04/30/20 08/30/24 History release levetiracetam 500 mg tablet 500 mg PO BID 01/30/22 08/30/24 History (Keppra) meloxicam 7.5 mg tablet 7.5 - 15 mg PO DAILY PRN Pain 09/16/22 08/30/24 History nitroglycerin 0.4 mg sublingual 0.4 mg sublingual Q5M PRN chest 09/16/22 08/30/24 Rx tablet pain #25 tabs furosemide 40 mg tablet 40 mg PO UD PRN .weight gain > 180 01/23/23 08/30/24 History atorvastatin 80 mg tablet 80 mg PO HS #90 tabs 09/30/23 08/30/24 Rx ipratropium 0.5 mg-albuterol 3 mg 3 ml inhalation QID PRN wheezing 04/14/24 08/30/24 Rx (2.5 mg base)/3 mL nebulization #180 mL soln aspirin 81 mg tablet,delayed 81 mg PO QAM 07/25/24 08/30/24 History release (Adult Low Dose Aspirin) amlodipine 5 mg tablet 5 mg PO QAM 08/30/24 08/30/24 History Inpatient Medication List Amlodipine Besylate (Amlodipine Besylate 5 Mg Tab) [facility] [place]: 09/30/24 08:59 Last Admin: 08/31/24 08:07 Dose: 5 mg Documented By: LES Aspirin (Aspirin 81 Mg Ectab) 81 mg PO QAM [facility] Stop: 09/30/24 08:59 Last Admin: 08/31/24 08:07 Dose: 81 mg Documented By: LES Atorvastatin Calcium (Atorvastatin 40 Mg Tab) 80 mg PO HS [facility] Stop: 09/29/24 20:59 Last Admin: 08/31/24 20:55 Dose: 80 mg Documented By: Admin: 08/30/24 21:57 Dose: 80 mg Documented By: LAURA Enoxaparin Sodium (Enoxaparin Inj 40 Mg/0.4 Ml Syr) 40 mg SQ Q24H APOLLO Stop: 09/29/24 20:59 Last Admin: 08/31/24 20:55 Dose: 40 mg Documented By: Admin: 08/30/24 21:57 Dose: 40 mg Documented By: LAURA Levetiracetam (Levetiracetam 500 Mg Tab) 1,000 mg PO BID APOLLO Stop: 09/30/24 08:59 Last Admin: 08/31/24 20:54 Dose: 1,000 mg Documented By: Admin: 08/31/24 08:07 Dose: 1,000 mg Documented By: LES Pantoprazole Sodium (Pantoprazole 40 Mg Tab) 40 mg PO QAM APOLLO Stop: 09/30/24 08:59 Last Admin: 08/31/24 08:07 Dose: 40 mg Documented By: LES Discontinued Medications Sodium Chloride (Nss) 500 mls @ 999 mls/hr IV .Q31M ONE Stop: 08/30/24 16:14 Last Infusion: 08/30/24 18:04 Dose: Infused Documented By: Admin: 08/30/24 16:16 Dose: 999 mls/hr Documented By: MACY Ioversol (Optiray 320 125ml) 115 ml IV ONCE ONE Stop: 08/30/24 16:20 Last Admin: 08/30/24 16:19 Dose: 115 ml Documented By: DELORES Levetiracetam (Levetiracetam 500 Mg Tab) 500 mg PO BID APOLLO Stop: 09/29/24 20:59 Last Admin: 08/30/24 21:57 Dose: 500 mg Documented By: LAURA Description This is a 21 electrode EEG with a single channel dedicated to limited EKG. The electrodes were placed in accordance with the International 10-20 system. REPORT: At the onset of the EEG the patient is in an altered mental state. The background is disorganized with loss of the normal anterior to posterior gradient. The background predominantly consist of 5-7 theta activity with some intermixed faster frequencies. There is some intermittent generalized triphasic appearing sharp waves. No stage II sleep transients are seen. Interpretation IMPRESSION: This is an abnormal awake and drowsy routine EEG due to 1. Intermittent triphasic waves which are nonspecific but commonly seen in metabolic encephalopathy (hepatic / renal) , 2. Generalized slowing suggestive of a non specific encephalopathy.
[2024-09-01 07:13] VITALS: O2SAT 93
[2024-09-01 15:08] VITALS: BP 143/77; PULSE 69; RESP 17; TEMP 98.1
--- NOTE | 2024-09-01 15:56 | Discharge Summary ---
Discharge Summary Date of Service September 01, 2024 Principal Dx & Hospital Course #1 = Principal Diagnosis (1) Breakthrough seizure: (2) CKD (chronic kidney disease), stage III: (3) COPD (chronic obstructive pulmonary disease): (4) HTN (hypertension): (5) Basilar artery aneurysm: (6) Mild cognitive impairment: Plan Patient presented to the emergency room with reported history of seizures. Patient has known seizure disorder. It seems as though he is had several breakthrough seizures over the past couple weeks. Patient was cared for in the hospital. There was no significant arrhythmias on telemetry monitoring. His Keppra dose was increased to 1000 mg 2 times daily. Imaging of the head did not show any acute changes. CTA of the head and neck showed a known basilar artery aneurysm which she follows with providers outpatient. Could not move forward with an MRI due to him having metallic foreign bodies in his orbit. Here in the hospital patient did not have any breakthrough seizures. He tolerated the increase of the Keppra. He was seen by therapies. Family already has establish 24-hour care. Also home health care has been involved. Family was comfortable taking him home with these arrangements. He be discharged home to follow-up with his PCP and outpatient neurologist. He will continue home health care. Time of discharge, phone conversation with patient's daughter. Aware of discharge plans and increase in the Keppra. She confirms that between her and the patient's niece they have 24-hour care. 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 Daughter is present and provides much of the history. Patient has a history of the occasional seizure however over the past couple weeks that she is having 3 seizures despite taking all medications. He takes Keppra and has not missed any doses. This morning he had a witnessed 1 minute seizure, shaking all extremities, loss of consciousness without tongue biting or incontinence. He states he has felt slightly fatigued and confused since then. He had a similar incident on [facility]. Daughter suspects he has been having seizures on and off for the past 2 weeks. Had recent hospitalization at an outside hospital [facility] for seizures. Tobacco use alcohol use. CODE STATUS discussed at length patient, it is discussed, patient would not like resuscitation at this time. Admission Exam Per Admitting Provider See H&P Discharge Exam Constitutional: Alert, nontoxic, no acute distress HEENT: Mucous membranes moist. Lungs: Clear to auscultation, decreased, no wheezes rales or rhonchi CV: S1-S2, regular Abdomen: Soft, nontender, nondistended Extremities: No significant edema Neuro: Hard of hearing, no focal weakness Psych: Cooperative, normal mood, abnormal memory/cognition Updated Medication List Medication Instructions Recorded Confirmed Type omeprazole 40 mg capsule,delayed 40 mg PO QAM 04/30/20 08/30/24 History release meloxicam 7.5 mg tablet 7.5 - 15 mg PO DAILY PRN Pain 09/16/22 08/30/24 History nitroglycerin 0.4 mg sublingual 0.4 mg sublingual Q5M PRN chest 09/16/22 08/30/24 Rx tablet pain #25 tabs furosemide 40 mg tablet 40 mg PO UD PRN .weight gain > 180 01/23/23 08/30/24 History atorvastatin 80 mg tablet 80 mg PO HS #90 tabs 09/30/23 08/30/24 Rx ipratropium 0.5 mg-albuterol 3 mg 3 ml inhalation QID PRN wheezing 04/14/24 08/30/24 Rx (2.5 mg base)/3 mL nebulization #180 mL soln aspirin 81 mg tablet,delayed 81 mg PO QAM 07/25/24 08/30/24 History release (Adult Low Dose Aspirin) amlodipine 5 mg tablet 5 mg PO QAM 08/30/24 08/30/24 History levetiracetam 500 mg tablet 1,000 mg (2 x 500 mg) PO BID 30 09/01/24 Rx (Keppra) days #120 tabs Hospital Stay Data Consultations 08/30/24 17:50 ED Decision to Admit Stat 08/31/24 08:00 Consult Neurology Routine Diagnostic Imagining Performed 08/30/24 15:44 CT angio head w con Stat CT angio neck with con Stat CT head/brain wo con Stat Pending Results Patient Have Any Pending Studies at Discharge: No Discharge Instructions Given to Patient (Per Discharging Provider) Continue your routine follow-ups for your basilar artery aneurysm You may not drive Home Health Attestation I certify that this patient is under my care and that I, or a physicians phlebotomist medical lab assistant working with me, had a face to-face encounter that meets the home health [id number] encounter requirements with this patient. The encounter with the patient was in whole, or in part, for the following medical condition, which is the primary reason for home health care (list medical condition): I certify that, based on my findings, the following services are medically necessary home health services: My clinical findings support the need for the above services because: Further, I certify that my clinical findings support that this patient is homebound (i.e. absences from home require considerable and taxing effort and are for medical reasons or jain services or infrequently or of short duration when for other reasons) because: Certification for Home Health Services: Based on the above findings, I certify that this patient is confined to the home and needs intermittent residential care, physical therapy and/or speech therapy or continues to need occupational therapy. The patient is under my care, and I have initiated the establishment of the plan of care. This patient will be followed by a physician who will periodically review the plan of care. Total Time Total Time Spent Total Time Spent (In Minutes): 35
== END 2024-09-01 18:36 | disposition home health service (06) | DRG 101 ==
LOC: ED 12:05 → 2N 18:25 → SUATTDRO 18:25 → 2N 20:40 → 3W 08-31 22:09

== ENCOUNTER 2025-04-06 18:47 | Inpatient (IN) ==
--- NOTE | 2025-04-06 19:45 | Emergency Department Note ---
Impression & Plan Hyponatremia, Weakness ED Provider Note CHIEF COMPLAINT: Back/neck pain HISTORY OF PRESENTING ILLNESS: The patient is an 84-year-old male who arrives to the emergency department for evaluation of neck and posterior shoulder pain, as well as weakness. The patient states he is also having headaches, that have been occurring for at least 1 week. He reports no falls, trauma, chest pain, shortness of breath, nausea, vomiting, or abdominal pain. He reports no dysuria, diarrhea, or constipation. He is ambulatory, and is showing no sign of neurological deficit. Patient is slightly hypertensive, however otherwise stable vital signs. REVIEW OF SYSTEMS: See HPI for pertinent positives and pertinent negatives. ALLERGIES: See below MEDICATIONS: See below PAST MEDICAL HISTORY: See below PHYSICAL EXAM: VITALS: Vitals are noted on the nurse's note and reviewed by myself. Vital signs stable. GENERAL: 84-year-old male, in no acute distress, nondiaphoretic, well-developed well-nourished. SKIN: The skin was without rashes, erythema, edema, or bruising. HEAD: Normocephalic atraumatic. EARS: External auditory canals clear, tympanic membranes pearly willett without erythema or effusion bilaterally. EYES: Pupils equal round and reactive to light and accommodation. Conjunctivae without injection, sclerae without icterus. Extraocular movements intact. No nystagmus. NOSE: Patent, turbinates without inflammation or discharge. No sinus tenderness. MOUTH: Mucous membranes moist. Tonsils are not enlarged. Pharynx without erythema or exudate. Uvula midline. Airway patent. Tongue does not deviate. NECK: Supple without nuchal rigidity. No lymphadenopathy. Cervical spine is nontender. No JVD. HEART: Regular rate and rhythm without murmurs gallops or rubs. LUNGS: Clear to auscultation bilaterally without wheezes, rales or rhonchi. No retractions or accessory muscle use. ABDOMEN: Positive bowel sounds x 4. Soft, nontender, without masses or organomegaly. Escobar sign negative. No guarding or rebound tenderness. MUSCULOSKELETAL: No muscle atrophy, erythema, or edema noted. Normal gait. Strength 5/5 throughout. NEURO: Patient was alert and oriented to person place and time. No focal neurological deficits. DIFFERENTIAL DIAGNOSIS: Infection, dehydration, metabolic abnormality, hypo/hyperglycemia, electrolyte disturbance, anemia, hypoxia, cardiac sources, intracerebral event, toxicologic, neurologic, as well as other pathologies. ED COURSE AND MEDICAL DECISION MAKING: HISTORY FROM INDEPENDENT HISTORIAN: Family at bedside serving secondary historian. MEDICATIONS GIVEN: 1 L NSS bolus MONITOR: Continuous air sampling and monitoring: Order was placed for continuous air sampling and monitoring. Patient was placed on the air sampling and monitoring and continuous pulse ox. Patient was noted to be in normal sinus rhythm at an initial rate of 82 bpm per my interpretation. EKG: EKG was interpreted by myself as paced rhythm, frequent PVCs, at a rate of 75 bpm. No concerning signs of ischemia. Previous for comparison from January 21 shows no concerning change. INTERPRETATION OF LABS: I interpreted the labs with full lab results as below in the lab section of this note. Pertinent lab results discussed in the MDM section below. INTERPRETATION OF IMAGING: Imaging studies were interpreted by myself and read by radiology as per the imaging section of this note. MDM SUMMARY: The patient is a pleasant, 84-year-old male who arrives to the emergency department for evaluation of the above-stated complaint. Lab work was obtained, CBC shows no leukocytosis, with stable anemia. CMP shows hyponatremia, 125 with most recent from , of 133. Slightly elevated alkaline phosphatase at 159, troponin slightly elevated at 23.5, with repeat 21.7. Patient is free of chest pain, EKG is not showing signs of ischemia, per my interpretation. Patient's TSH, 6.483, no documented hypothyroid and patient's chart, as will require further evaluation. Urinalysis shows no concerning signs of infection. Chest x-ray per my interpretation shows no acute cardiopulmonary process. The patient was provided 1 L bolus normal saline. He will require admission for symptomatic hyponatremia, and weakness. I contacted the [facility] hospitalist, Dr. Vasquez, who agreed to evaluate and accept the patient for admission. Please refer to his documentation for further patient workup and care. DIAGNOSIS: Hyponatremia, weakness The patient's case was discussed with Dr. Chacko, who agreed with my evaluation and treatment plan. The chart was completed utilizing [employer] Speech voice recognition software. Grammatical errors, random word insertions, pronoun errors, and incomplete sentences are an occasional consequence of this system due to software limitations, ambient noise, and hardware issues. Any formal questions or concerns about the content, text, or information contained within the body of this dictation should be directly addressed to the provider for clarification. Past Med/Surg History Problem List (Updated 04/09/25 @ 01:48 by KAREN Escalante) Weakness (Acute) Acute pain in joint Mild cognitive impairment Hyponatremia (Acute) Breakthrough seizure Aortic stenosis Pacemaker (01/2023) Dual-chamber Medtronic. Model number: [id number] serial number [id number] AAA (abdominal aortic aneurysm) Seizure disorder History of tobacco use History of asthma CAD (coronary artery disease) (Acute) Dyslipidemia (Acute) HTN (hypertension) (Acute) CKD (chronic kidney disease), stage III COPD (chronic obstructive pulmonary disease) Medical History Dizziness Bradycardia Weakness STOREY (dyspnea on exertion) Vertigo History of PA (myocardial infarction) Complete heart block, transient (01/2023) Vitamin D deficiency Osteoarthrosis LVH (left ventricular hypertrophy) Iron deficiency Gout Gastro-esophageal reflux disease with esophagitis Erectile dysfunction Dermatitis Carotid bruit Basilar artery aneurysm Anemia Surgical History History of intravascular stent placement History of back surgery Family History Mother Cancer Father Cancer Stroke Brother Cancer Son Diabetes Hypertension Social History Smoking Status: Never smoker Tobacco Type: Smokeless Tobacco (Dip or Chew) Age Started Using Tobacco: 15; packs per day: 3; Second Hand Exposure: No; Do You Dip or Chew Tobacco: Yes; Hx Alcohol Use: No Hx Substance Use: No Preferred Language: Cook Islander Communication Ability: Effective Igniter Capper Required: No Beliefs That Will Affect Care: None marital status: Life Partner Current Living Situation: Alone Other Information That Helps Us Care for You: No Feels Safe at Home: Yes Assistive Devices: Nebulizer Allergies Allergies Allergy/AdvReac Type Severity Reaction Status Date / Time hydrochlorothiazide AdvReac Mild myalgia Verified 04/06/25 23:18 [From Dyazide] triamterene [From Dyazide] AdvReac Mild myalgia Verified 04/06/25 23:18 Home Meds Home Medications Medication Instructions Recorded Confirmed omeprazole 40 mg capsule,delayed 40 mg PO QAM 04/30/20 04/06/25 release aspirin 81 mg tablet,delayed 81 mg PO QAM 07/25/24 04/06/25 release (Adult Low Dose Aspirin) Previous Rx's Medication Instructions Recorded nitroglycerin 0.4 mg sublingual 0.4 mg sublingual Q5M PRN chest 09/16/22 tablet pain #25 tabs levetiracetam 500 mg tablet 1,000 mg (2 x 500 mg) PO BID 30 09/01/24 (Keppra) days #120 tabs amlodipine 5 mg tablet 5 mg PO QAM #90 tabs 09/21/24 atorvastatin 80 mg tablet 80 mg PO HS #90 tabs 10/06/24 nebulizer accessories #1 ea 11/14/24 ipratropium 0.5 mg-albuterol 3 mg 3 ml inhalation QID PRN wheezing 03/03/25 (2.5 mg base)/3 mL nebulization #180 mL soln furosemide 40 mg tablet 40 mg PO 2XWK PRN weight gain > 03/09/25 185 #60 tabs oxycodone 5 mg tablet 5 mg PO Q4H PRN severe pain (scale 04/08/25 score 7-10) #14 tabs Results & Data (ED) Vital Signs Vital Signs - 24 hr 04/06/25 18:55 Temperature 36.2 C L Temperature Source Temporal Artery Scan Pulse Rate 82 Pulse Rhythm Regular Pulse Strength Normal Respiratory Rate 18 Respiratory Effort / Characteristics Non-Labored Spontaneous Respiratory Depth Normal Respiratory Pattern Regular Blood Pressure 165/90 H Blood Pressure Mean 115 Blood Pressure Position Sitting Pulse Oximetry 94 Oxygen Delivery Method Room Air Sepsis Recent Fever Within 48 Hours No Sepsis New/Unexplained Change in Mental Status N/A Sepsis Action Taken by Nursing No Action Required Home Medications Current Medication List: was personally reviewed by me Laboratory Data Attestation: I reviewed the patient's lab results. 04/08/25 05:57 04/08/25 05:57 Lab Results 04/06/25 04/06/25 04/06/25 Range/Units 21:08 21:57 22:50 WBC 7.20 (4.8-10.8) K/ul RBC 5.33 (4.70-6.10) M/uL Hgb 12.5 L (14.0-18.0) g/dl Hct 38.9 L (42.0-52.0) % MCV 73.0 L (80.0-100.0) fL MCH 23.5 L (25.0-34.0) pg MCHC 32.1 (32.0-36.0) g/dL RDW Std Deviation 41.6 (36.4-46.3) fL RDW Coeff of Gibson 16.3 H (11.5-14.5) % Plt Count 335 (130-400) K/uL MPV 10.3 (9.4-12.4) fL Immature Gran % (Auto) 1.5 % Neut % (Auto) 68.6 % Lymph % (Auto) 15.4 % [place] % (Auto) 10.1 % Eos % (Auto) 3.8 % Baso % (Auto) 0.6 % Neut # (Auto) 4.94 (1.40-6.50) K/uL Lymph # (Auto) 1.11 L (1.20-3.40) K/uL [place] # (Auto) 0.73 H (0.11-0.59) K/uL Eos # (Auto) 0.27 (0.00-0.50) K/uL Baso # (Auto) 0.04 (0.00-0.20) K/uL Immature Gran # (Auto) 0.11 (0.01-0.20) K/uL Sodium 125 L (136-145) mmol/L Potassium 4.5 (3.5-5.1) mmol/L Chloride 91 L (98-107) mmol/L Carbon Dioxide 26 (21-32) mmol/L Anion Gap 8 (3-11) BUN 17 (6-23) mg/dl Creatinine 1.37 (0.6-1.4) mg/dl Est Cr Clr Drug Dosing 42.9 ml/min eGFR 51.50 BUN/Creatinine Ratio 12.4 (10-20) Glucose 83 (70-99(Fasting)) mg/dl Osmolality 267 L (280-300) mOsm/kg Calcium 9.3 (8.6-10.3) mg/dl Magnesium 2.3 (1.7-2.4) mg/dl Total Bilirubin 0.7 (0.2-1.0) mg/dl AST 32 (13-39) U/L ALT 14 (7-52) U/L Alkaline Phosphatase 159 H (34-104) U/L Total Creatine Kinase 515 H (30-223) U/L Troponin I High Sens 23.5 H (0-20) pg/ml Total Protein 8.1 (6.0-8.3) gm/dl Albumin 4.5 (3.4-5.0) gm/dl Globulin 3.6 (2.5-4.0) gm/dl Albumin/Globulin Ratio 1.3 (0.9-2) TSH 6.483 H (0.300-4.500) uIu/ml Free T4 0.79 (0.61-1.60) ng/dl Urine Color Yellow Urine Appearance Clear (Clear) Urine pH 7.0 (4.5-7.5) Ur Specific [place] 1.004 (1.000-1.030) Urine Protein Negative (Negative) Urine Glucose (UA) Negative (Negative) Urine Ketones Negative (Negative) Urine Blood Negative (Negative) Urine Nitrite Negative (Negative) Urine Bilirubin Negative (Negative) Urine Urobilinogen Negative (Negative) Ur Leukocyte Esterase Negative (Negative) Urine Osmolality 98 L (500-800) mOsm/kg Ur Random Sodium 22 mmol/L Urine Comment 04/06/25 Range/Units 23:03 WBC (4.8-10.8) K/ul RBC (4.70-6.10) M/uL Hgb (14.0-18.0) g/dl Hct (42.0-52.0) % MCV (80.0-100.0) fL MCH (25.0-34.0) pg MCHC (32.0-36.0) g/dL RDW Std Deviation (36.4-46.3) fL RDW Coeff of Gibson (11.5-14.5) % Plt Count (130-400) K/uL MPV (9.4-12.4) fL Immature Gran % (Auto) % Neut % (Auto) % Lymph % (Auto) % [place] % (Auto) % Eos % (Auto) % Baso % (Auto) % Neut # (Auto) (1.40-6.50) K/uL Lymph # (Auto) (1.20-3.40) K/uL [place] # (Auto) (0.11-0.59) K/uL Eos # (Auto) (0.00-0.50) K/uL Baso # (Auto) (0.00-0.20) K/uL Immature Gran # (Auto) (0.01-0.20) K/uL Sodium 128 L (136-145) mmol/L Potassium (3.5-5.1) mmol/L Chloride (98-107) mmol/L Carbon Dioxide (21-32) mmol/L Anion Gap (3-11) BUN (6-23) mg/dl Creatinine (0.6-1.4) mg/dl Est Cr Clr Drug Dosing ml/min eGFR BUN/Creatinine Ratio (10-20) Glucose (70-99(Fasting)) mg/dl Osmolality (280-300) mOsm/kg Calcium (8.6-10.3) mg/dl Magnesium (1.7-2.4) mg/dl Total Bilirubin (0.2-1.0) mg/dl AST (13-39) U/L ALT (7-52) U/L Alkaline Phosphatase (34-104) U/L Total Creatine Kinase (30-223) U/L Troponin I High Sens 21.7 H (0-20) pg/ml Total Protein (6.0-8.3) gm/dl Albumin (3.4-5.0) gm/dl Globulin (2.5-4.0) gm/dl Albumin/Globulin Ratio (0.9-2) TSH (0.300-4.500) uIu/ml Free T4 (0.61-1.60) ng/dl Urine Color Urine Appearance (Clear) Urine pH (4.5-7.5) Ur Specific [place] (1.000-1.030) Urine Protein (Negative) Urine Glucose (UA) (Negative) Urine Ketones (Negative) Urine Blood (Negative) Urine Nitrite (Negative) Urine Bilirubin (Negative) Urine Urobilinogen (Negative) Ur Leukocyte Esterase (Negative) Urine Osmolality (500-800) mOsm/kg Ur Random Sodium mmol/L Urine Comment Administered Medications Discontinued Medications Albuterol (Albut/Ipratrop 3mg/0.5mg Neb 3 Ml Vial) 3 ml NEB Q6R PRN; Protocol PRN Reason: Shortness Of Breath Or Wheezing Stop: 05/07/25 10:36 Last Admin: 04/07/25 23:25 Dose: 3 ml Documented By: Admin: 04/07/25 11:59 Dose: 3 ml Documented By: CLAIRE Amlodipine Besylate (Amlodipine Besylate 5 Mg Tab) 5 mg PO [facility] Stop: 05/07/25 08:59 Last Admin: 04/08/25 09:06 Dose: 5 mg Documented By: Admin: 04/07/25 09:14 Dose: 5 mg Documented By: CF Aspirin (Aspirin 81 Mg Ectab) 81 mg PO [facility] Stop: 05/07/25 08:59 Last Admin: 04/08/25 09:06 Dose: 81 mg Documented By: Admin: 04/07/25 09:14 Dose: 81 mg Documented By: CF Atorvastatin Calcium (Atorvastatin 40 Mg Tab) 80 mg PO [facility] Stop: 05/07/25 20:59 Last Admin: 04/07/25 20:20 Dose: 80 mg Documented By: CARLOS Enoxaparin Sodium (Enoxaparin Inj 40 Mg/0.4 Ml Syr) 40 mg SQ [facility] Stop: 05/07/25 08:59 Last Admin: 04/08/25 09:06 Dose: 40 mg Documented By: Admin: 04/07/25 09:14 Dose: 40 mg Documented By: DELMA Sodium Chloride (Nss) 1,000 mls @ 999 mls/hr IV .Q1H1M [facility] Stop: 04/06/25 22:00 Last Infusion: 04/06/25 22:41 Dose: Infused Documented By: Admin: 04/06/25 21:21 Dose: 999 mls/hr Documented By: CTK Albumin Human (Albumin 25%) 25 gm in 100 mls @ 50 mls/hr IV ONE ONE Stop: 04/07/25 03:37 Last Infusion: 04/07/25 04:12 Dose: Infused Documented By: [id number] Admin: 04/07/25 02:13 Dose: 50 mls/hr Documented By: [id number] Dextrose (D5w) 1,000 mls @ 50 mls/hr IV .Q20H STA Stop: 04/08/25 07:33 Last Infusion: 04/08/25 04:54 Dose: Infused Documented By: Admin: 04/07/25 13:13 Dose: 80 mls/hr Documented By: DELMA Levetiracetam (Levetiracetam 500 Mg Tab) 1,000 mg PO BID APOLLO Stop: 05/07/25 08:59 Last Admin: 04/08/25 09:06 Dose: 1,000 mg Documented By: Admin: 04/07/25 20:20 Dose: 1,000 mg Documented By: Admin: 04/07/25 09:14 Dose: 1,000 mg Documented By: DELMA Pantoprazole Sodium (Pantoprazole 40 Mg Tab) 40 mg PO QAM APOLLO Stop: 05/07/25 08:59 Last Admin: 04/08/25 09:06 Dose: 40 mg Documented By: Admin: 04/07/25 09:14 Dose: 40 mg Documented By: DELMA Imaging Data Attestation: I personally reviewed and interpreted this imaging study as follows: Discharge Plan Visit Data Chief Complaint: Back Injury/Pain Stated Complaint: BACK, NECK PAIN ED Provider: Kris Chacko ED Midlevel Provider: Lyric Mary Discharge Problem: Hyponatremia, Weakness Patient Disposition: Admitted As Inpatient Condition: Fair Discharge Instructions Interventions: ED Discharge Assessment Last Done: 04/07/25 02:04
[2025-04-06] MEDS: SODIUM CHLORIDE 0.9% 1,000 ML IV SCH (21:21)
[2025-04-06 21:22] LABS: Hematocrit (blood only) 38.9 % (42.0-52.0); Hemoglobin 12.5 g/dl (14.0-18.0); Immature Granulocytes # (auto) 0.11 K/uL (0.01-0.20); Immature Granulocytes % (auto) 1.5 %; Mean Corpuscular Hemoglobin 23.5 pg (25.0-34.0); Mean Corpuscular Volume 73.0 fL (80.0-100.0); Platelet Count 335 K/uL (130-400); RDW Standard Deviation 41.6 fL (36.4-46.3); Red Blood Count 5.33 M/uL (4.70-6.10); White Blood Count 7.20 K/ul (4.8-10.8)
[2025-04-06 21:40] LABS: Alanine Aminotransferase 14.0 U/L (7-52); Albumin Globulin Ratio 1.3 (0.9-2); Alkaline Phosphatase 159.0 U/L (34-104); Anion Gap 8.0 (3-11); Bilirubin,Total 0.7 mg/dl (0.2-1.0); Blood Urea Nitrogen 17.0 mg/dl (6-23); Calcium 9.3 mg/dl (8.6-10.3); Carbon Dioxide 26.0 mmol/L (21-32); Chloride 91.0 mmol/L (98-107); Creatine Kinase 515.0 U/L (30-223); Creatinine Clr Calc Pharmacy 42.9 ml/min; Globulin 3.6 gm/dl (2.5-4.0); Glucose 83.0 mg/dl (70-99(Fasting)); Magnesium 2.3 mg/dl (1.7-2.4); Potassium 4.5 mmol/L (3.5-5.1); Sodium 125.0 mmol/L (136-145); Total Protein 8.1 gm/dl (6.0-8.3)
[2025-04-06 21:55] LABS: Thyroid Stimulating Hormone 6.483 uIu/ml (0.300-4.500)
[2025-04-06 22:05] LABS: Appearance Urine Clear (Clear); Glucose Urine UA Negative (Negative)
--- NOTE | 2025-04-06 23:32 | XRay Report ---
Exam(s): XR CXR 1 VIEW EXAM: XR Chest, 1 View CLINICAL HISTORY: Reason for exam: weakness. TECHNIQUE: Frontal views of the chest. COMPARISON: 01/21/2025. FINDINGS: Lungs: . No consolidation. Pleural space: No pleural effusion is seen. No pneumothorax. Heart: A pacemaker is again noted. The heart is top normal in size.. Mediastinum: There is uncoiling and calcification thoracic aorta.. Bones/joints: There are degenerative changes in the spine.. IMPRESSION: No acute pulmonary disease. Electronically signed by: Constantin Edward MD 04/06/25 23:31 PM
--- NOTE | 2025-04-06 23:41 | History & Physical Report ---
Date of Service April 06, 2025 Assessment & Plan (1) Hyponatremia: Plan: Assessment and plan below following discussion of case with ED provider and reviewing patient history/pertinent normal/abnormal diagnostic test results. Hypoosmolar hyponatremia Neck and posterior shoulder pain possibly from uncontrolled hypertension Troponin elevation secondary to uncontrolled hypertension hx CAD status post stent valvular heart disease (moderate MR/mild TTE 2024) complete heart block status post PPM hyperlipidemia, on statin Rx AAA status post surgery COPD, pulmonary hypertension, pulmonary status at baseline hx cerebral aneurysm as per records, no recent follow-up with [facility] neurosurgery hx seizure disorder, stable on Keppra mild cognitive impairment as per records, patient mentating well chronic anemia, hemoglobin at baseline Subclinical hypothyroidism past tobacco abuse Admit to med/tele Careful correction of sodium monitor serum sodium response to initial fluid bolus administered at the ER Hyponatremia workup May benefit from Nephrology evaluation Titrate home BP meds Follow troponin Recheck TSH outpatient next month DVT prophylaxis. Lovenox subcu Full code Patient daughter requesting updates providers. Goran Essie Sauceda, contact #[phone]. Text document was generated using [employer] voice recognition software. It may contain grammatical or spelling errors. Kindly contact undersigned for clarification of any documentation item in question. History of Present Illness Chief Complaint: Bilateral shoulder pain Primary Care Provider: KAREN Orta History obtained from patient, family, and records. Medical history significant for CAD status post stent, valvular heart disease (moderate MR/mild TTE 2024), complete heart block status post PPM, hypertension, hyperlipidemia, AAA status post surgery, COPD, pulmonary hypertension, cerebral aneurysm as per records, seizure disorder, mild cognitive impairment as per records, chronic anemia (baseline hemoglobin 11-12), past tobacco/alcohol abuse. Last confinement August 2024 for breakthrough seizures. Patient with posterior neck pain and bilateral shoulder pain the last few days. No recent trauma. Denies headache symptoms. Denies chest pain. Usual SOB from COPD. No unusual cough symptoms. Compliant with home medications. Does not check blood pressure at home. Seizures well-controlled as per daughter. Denies inordinate water intake. SBP 160s upon arrival at the ER. Patient currently comfortable. Medical History as above Surgical History : Vascular procedures AAA repair, clubfoot surgery, back surgery, throat surgery, PPM Family History : Lung cancer, DM, stroke, hypertension Personal/Social history : Past tobacco/alcohol abuse, retired from [employer] Allergies Allergy/AdvReac Type Severity Reaction Status Date / Time hydrochlorothiazide AdvReac Mild myalgia Verified 04/06/25 23:18 [From Dyazide] triamterene [From Dyazide] AdvReac Mild myalgia Verified 04/06/25 23:18 Home Medications Medication Instructions Recorded Confirmed Type omeprazole 40 mg capsule,delayed 40 mg PO QAM 04/30/20 04/06/25 History release nitroglycerin 0.4 mg sublingual 0.4 mg sublingual Q5M PRN chest 09/16/22 04/06/25 Rx tablet pain #25 tabs aspirin 81 mg tablet,delayed 81 mg PO QAM 07/25/24 04/06/25 History release (Adult Low Dose Aspirin) levetiracetam 500 mg tablet 1,000 mg (2 x 500 mg) PO BID 30 09/01/24 04/06/25 Rx (Keppra) days #120 tabs amlodipine 5 mg tablet 5 mg PO QAM #90 tabs 09/21/24 04/06/25 Rx atorvastatin 80 mg tablet 80 mg PO HS #90 tabs 10/06/24 04/06/25 Rx nebulizer accessories #1 ea 11/14/24 12/29/24 Rx ipratropium 0.5 mg-albuterol 3 mg 3 ml inhalation QID PRN wheezing 03/03/25 04/06/25 Rx (2.5 mg base)/3 mL nebulization #180 mL soln furosemide 40 mg tablet 40 mg PO 2XWK PRN weight gain > 03/09/25 04/06/25 Rx 185 #60 tabs meloxicam 7.5 mg tablet 7.5 mg PO BID PRN Pain 04/06/25 04/06/25 History Past Med/Surg History Problem List (Updated 02/05/25 @ 00:06 by Background Daemon) Mild cognitive impairment Hyponatremia Breakthrough seizure Aortic stenosis Pacemaker (01/2023) Dual-chamber Medtronic. Model number: [id number] serial number [id number] AAA (abdominal aortic aneurysm) Seizure disorder History of tobacco use History of asthma CAD (coronary artery disease) (Acute) Dyslipidemia (Acute) HTN (hypertension) (Acute) CKD (chronic kidney disease), stage III COPD (chronic obstructive pulmonary disease) Medical History Dizziness Bradycardia Weakness STOREY (dyspnea on exertion) Vertigo History of [place] (myocardial infarction) Complete heart block, transient (01/2023) Vitamin D deficiency Osteoarthrosis LVH (left ventricular hypertrophy) Iron deficiency Gout Gastro-esophageal reflux disease with esophagitis Erectile dysfunction Dermatitis Carotid bruit Basilar artery aneurysm Anemia Surgical History History of intravascular stent placement History of back surgery Family History Mother Cancer Father Cancer Stroke Brother Cancer Son Diabetes Hypertension Social History Smoking Status: Never smoker Tobacco Type: Smokeless Tobacco (Dip or Chew) Age Started Using Tobacco: 15; packs per day: 3; Second Hand Exposure: No; Do You Dip or Chew Tobacco: Yes; Hx Alcohol Use: No Hx Substance Use: No Preferred Language: Honduran Communication Ability: Effective 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: No Beliefs That Will Affect Care: None marital status: Life Partner Current Living Situation: Alone Other Information That Helps Us Care for You: No Feels Safe at Home: Yes Assistive Devices: Hearing Aid - Bilateral Review of Systems Review of Systems: As per HPI, all other systems reviewed and negative Physical Exam Physical Exam: GENERAL: Comfortable, hard of hearing, no respiratory distress SKIN: Pallor,, warm HEENT: Pale palpebral conjunctivae, no ptosis, dry buccal mucosa NECK : Supple, no tenderness CHEST : Decreased breath sounds, no tenderness HEART : RRR, systolic murmur ABDOMEN: Some distention, nontender EXTREMITIES : No LE swelling/tenderness, palpable pulses, no other conspicuous deformities noted NEUROLOGIC : Coherent, no facial asymmetry, hard of hearing, gait and stance emesis Results & Data Results & Data Vital Signs (Past 12 Hours) Vital Signs Temp Pulse Pulse Resp BP BP Pulse Ox 04/06/25 22:57 74 22 140/89 96 04/06/25 21:10 70 18 142/94 H 96 04/06/25 21:05 66 04/06/25 18:55 36.2 C L 82 18 165/90 H 94 O2 Del Method 04/06/25 22:57 Room Air 04/06/25 21:10 Room Air 04/06/25 21:05 04/06/25 18:55 Room Air Laboratory Results Laboratory Results WBC 7.20 K/ul (4.8-10.8) 04/06/25 21:08 RBC 5.33 M/uL (4.70-6.10) 04/06/25 21:08 Hgb 12.5 g/dl (14.0-18.0) L 04/06/25 21:08 Hct 38.9 % (42.0-52.0) L 04/06/25 21:08 MCV 73.0 fL (80.0-100.0) L 04/06/25 21:08 MCH 23.5 pg (25.0-34.0) L 04/06/25 21:08 MCHC 32.1 g/dL (32.0-36.0) 04/06/25 21:08 RDW Std Deviation 41.6 fL (36.4-46.3) 04/06/25 21:08 RDW Coeff of Gibson 16.3 % (11.5-14.5) H 04/06/25 21:08 Plt Count 335 K/uL (130-400) 04/06/25 21:08 MPV 10.3 fL (9.4-12.4) 04/06/25 21:08 Immature Gran % (Auto) 1.5 % 04/06/25 21:08 Neut % (Auto) 68.6 % 04/06/25 21:08 Lymph % (Auto) 15.4 % 04/06/25 21:08 [place] % (Auto) 10.1 % 04/06/25 21:08 Eos % (Auto) 3.8 % 04/06/25 21:08 Baso % (Auto) 0.6 % 04/06/25 21:08 Neut # (Auto) 4.94 K/uL (1.40-6.50) 04/06/25 21:08 Lymph # (Auto) 1.11 K/uL (1.20-3.40) L 04/06/25 21:08 [place] # (Auto) 0.73 K/uL (0.11-0.59) H 04/06/25 21:08 Eos # (Auto) 0.27 K/uL (0.00-0.50) 04/06/25 21:08 Baso # (Auto) 0.04 K/uL (0.00-0.20) 04/06/25 21:08 Immature Gran # (Auto) 0.11 K/uL (0.01-0.20) 04/06/25 21:08 Sodium 125 mmol/L (136-145) L 04/06/25 21:08 Potassium 4.5 mmol/L (3.5-5.1) 04/06/25 21:08 Chloride 91 mmol/L (98-107) L 04/06/25 21:08 Carbon Dioxide 26 mmol/L (21-32) 04/06/25 21:08 Anion Gap 8 (3-11) 04/06/25 21:08 BUN 17 mg/dl (6-23) 04/06/25 21:08 Creatinine 1.37 mg/dl (0.6-1.4) 04/06/25 21:08 Est Cr Clr Drug Dosing 42.9 ml/min 04/06/25 21:08 eGFR 51.50 04/06/25 21:08 BUN/Creatinine Ratio 12.4 (10-20) 04/06/25 21:08 Glucose 83 mg/dl (70-99(Fasting)) 04/06/25 21:08 Osmolality 267 mOsm/kg (280-300) L 04/06/25 22:50 Calcium 9.3 mg/dl (8.6-10.3) 04/06/25 21:08 Magnesium 2.3 mg/dl (1.7-2.4) 04/06/25 21:08 Total Bilirubin 0.7 mg/dl (0.2-1.0) 04/06/25 21:08 AST 32 U/L (13-39) 04/06/25 21:08 ALT 14 U/L (7-52) 04/06/25 21:08 Alkaline Phosphatase 159 U/L (34-104) H 04/06/25 21:08 Total Creatine Kinase 515 U/L (30-223) H 04/06/25 21:08 Troponin I High Sens 23.5 pg/ml (0-20) H 04/06/25 21:08 Total Protein 8.1 gm/dl (6.0-8.3) 04/06/25 21:08 Albumin 4.5 gm/dl (3.4-5.0) 04/06/25 21:08 Globulin 3.6 gm/dl (2.5-4.0) 04/06/25 21:08 Albumin/Globulin Ratio 1.3 (0.9-2) 04/06/25 21:08 TSH 6.483 uIu/ml (0.300-4.500) H 04/06/25 21:08 Free T4 0.79 ng/dl (0.61-1.60) 04/06/25 21:08 Urine Color Yellow 04/06/25 21:57 Urine Appearance Clear (Clear) 04/06/25 21:57 Urine pH 7.0 (4.5-7.5) 04/06/25 21:57 Ur Specific Sabin 1.004 (1.000-1.030) 04/06/25 21:57 Urine Protein Negative (Negative) 04/06/25 21:57 Urine Glucose (UA) Negative (Negative) 04/06/25 21:57 Urine Ketones Negative (Negative) 04/06/25 21:57 Urine Blood Negative (Negative) 04/06/25 21:57 Urine Nitrite Negative (Negative) 04/06/25 21:57 Urine Bilirubin Negative (Negative) 04/06/25 21:57 Urine Urobilinogen Negative (Negative) 04/06/25 21:57 Ur Leukocyte Esterase Negative (Negative) 04/06/25 21:57 Urine Osmolality 98 mOsm/kg (500-800) L 04/06/25 21:57 Ur Random Sodium 22 mmol/L 04/06/25 21:57 Urine Comment 04/06/25 21:57 Impressions Chest X-Ray 04/06/25 20:50 Exam(s): XR CXR 1 VIEW EXAM: XR Chest, 1 View CLINICAL HISTORY: Reason for exam: weakness. TECHNIQUE: Frontal views of the chest. COMPARISON: 01/21/2025. FINDINGS: Lungs: . No consolidation. Pleural space: No pleural effusion is seen. No pneumothorax. Heart: A pacemaker is again noted. The heart is top normal in size.. Mediastinum: There is uncoiling and calcification thoracic aorta.. Bones/joints: There are degenerative changes in the spine.. IMPRESSION: No acute pulmonary disease. Electronically signed by: Constantin Edward MD 04/06/25 23:31 PM Diagnostic Findings EKG as per my interpretation :Rate 75, paced rhythm
[2025-04-06] MEDS ORDERED: PROMETHAZINE 6.25 MG/50.25 ML BAG IV PRN (23:48)
[2025-04-06] MEDS ORDERED: ACETAMINOPHEN 325 MG TAB PO PRN (23:48)
[2025-04-07 00:02] LABS: Sodium 128.0 mmol/L (136-145)
[2025-04-07] MEDS: ALBUMIN 25% 25 GM/100 ML VIAL IV ONE (02:13)
[2025-04-07 07:33] LABS: Hematocrit (blood only) 35.2 % (42.0-52.0); Hemoglobin 10.8 g/dl (14.0-18.0); Immature Granulocytes # (auto) 0.10 K/uL (0.01-0.20); Immature Granulocytes % (auto) 1.5 %; Mean Corpuscular Hemoglobin 22.5 pg (25.0-34.0); Mean Corpuscular Volume 73.3 fL (80.0-100.0); Platelet Count 264 K/uL (130-400); RDW Standard Deviation 42.2 fL (36.4-46.3); Red Blood Count 4.80 M/uL (4.70-6.10); White Blood Count 6.79 K/ul (4.8-10.8)
[2025-04-07 07:50] LABS: Anion Gap 6.0 (3-11); Blood Urea Nitrogen 12.0 mg/dl (6-23); Calcium 8.7 mg/dl (8.6-10.3); Carbon Dioxide 27.0 mmol/L (21-32); Chloride 102.0 mmol/L (98-107); Creatine Kinase 352.0 U/L (30-223); Creatinine Clr Calc Pharmacy 51.1 ml/min; Glucose 81.0 mg/dl (70-99(Fasting)); Potassium 4.4 mmol/L (3.5-5.1); Sodium 135.0 mmol/L (136-145)
[2025-04-07] MEDS: levETIRAcetam 500 MG TAB PO SCH (09:14)
[2025-04-07] MEDS: ENOXAPARIN INJ 40 MG/0.4 ML SYR SQ SCH (09:14)
[2025-04-07] MEDS: ASPIRIN 81 MG ECTAB PO SCH (09:14)
--- NOTE | 2025-04-07 10:09 | Nephrology Consultation ---
Date of Consultation April 07, 2025 Assessment & Plan (1) Hyponatremia: Hypotonic hyponatremia from polydipsia on high fluid/ lower solute diet. Presenting sodium 125; correcting too rapidly overnight to 135 within 10 hours. >start D5W at 80 mL hourly -no FR while on clears -maintain eukalemia -target sNa is 131 this evening 2100 > bmp ordered for 2100 and 1500 -suggest primary screen/evaluate for malnutrition/food insecurity orders for above placed for labs, IVF Care coordinated w/ Dr Greenwood via TText re likely cause, best correction rate, therapy for hyponatremia ; we are in agreement. History of Present Illness Reason for Consultation: Hyponatremia Requesting Physician: Dr. GREENWOOD Attending Physician: Will Greenwood MD History of Present Illness 84-year-old male whom I am asked to evaluate for hyponatremia was admitted last evening with hypoosmolar hyponatremia and uncontrolled hypertension with troponin elevation. Past medical history includes CAD status post stent, valvular heart disease (moderate MR/mild aortic stenosis early 2024 TTE), complete heart block s/p pacemaker, abdominal aortic aneurysm status post repair, hypertension, COPD with pulmonary hypertension, cerebral aneurysm, seizure disorder, mild cognitive impairment, past tobacco and alcohol abuse, chronic mild anemia, hyperlipidemia. No prior history of hyponatremia found on labs in [facility] to 2016. Presenting sodium 125 at 9 PM April 06; sodium this morning 7 AM is 135. Since serum osmolality 267; urine osmolality 98, urine sodium 22. He had 1 L normal saline at 9 PM yesterday and then received albumin 1 dose at 2 AM this morning. Currently on a clear liquid diet with no fluid limit. As an outpatient, he takes Lasix 40 mg p.o. twice weekly as needed weight gain and is also taking daily meloxicam. Also on Keppra twice daily; Keppra continued on admission. he lives alone; drinks 3-4 x 17 oz water bottles daily plus 1-2 pots of coffee. Minimal appetite > eats "if I feel like it;" neighbors, family bring food. takes meloxicam daily lately d/t neck pain. hasn't needed extra lasix lately. denies sob, wheeze, cough, edema, n/v. neck pain as above R post neck. no falls but did think he was a bit more off balance past few days ( part of why he came to ER). no new/worrisome voiding sx. no d/c/HB/abd pain. no chest pain or palpitations. tells me he feels pretty well today. Allergies Allergy/AdvReac Type Severity Reaction Status Date / Time hydrochlorothiazide AdvReac Mild myalgia Verified 04/06/25 23:18 [From Dyazide] triamterene [From Dyazide] AdvReac Mild myalgia Verified 04/06/25 23:18 Home Medications Medication Instructions Recorded Confirmed Type omeprazole 40 mg capsule,delayed 40 mg PO QAM 04/30/20 04/06/25 History release nitroglycerin 0.4 mg sublingual 0.4 mg sublingual Q5M PRN chest 09/16/22 04/06/25 Rx tablet pain #25 tabs aspirin 81 mg tablet,delayed 81 mg PO QAM 07/25/24 04/06/25 History release (Adult Low Dose Aspirin) levetiracetam 500 mg tablet 1,000 mg (2 x 500 mg) PO BID 30 09/01/24 04/06/25 Rx (Keppra) days #120 tabs amlodipine 5 mg tablet 5 mg PO QAM #90 tabs 09/21/24 04/06/25 Rx atorvastatin 80 mg tablet 80 mg PO HS #90 tabs 10/06/24 04/06/25 Rx nebulizer accessories #1 ea 11/14/24 12/29/24 Rx ipratropium 0.5 mg-albuterol 3 mg 3 ml inhalation QID PRN wheezing 03/03/25 04/06/25 Rx (2.5 mg base)/3 mL nebulization #180 mL soln furosemide 40 mg tablet 40 mg PO 2XWK PRN weight gain > 03/09/25 04/06/25 Rx 185 #60 tabs meloxicam 7.5 mg tablet 7.5 mg PO BID PRN Pain 04/06/25 04/06/25 History Patient History Medical History Dizziness Bradycardia Weakness STOREY (dyspnea on exertion) Vertigo History of NV (myocardial infarction) Complete heart block, transient (01/2023) Vitamin D deficiency Osteoarthrosis LVH (left ventricular hypertrophy) Iron deficiency Gout Gastro-esophageal reflux disease with esophagitis Erectile dysfunction Dermatitis Carotid bruit Basilar artery aneurysm Anemia Surgical History History of intravascular stent placement History of back surgery Family History Mother Cancer Father Cancer Stroke Brother Cancer Son Diabetes Hypertension Social History Smoking Status: Never smoker Tobacco Type: Smokeless Tobacco (Dip or Chew) Age Started Using Tobacco: 15; packs per day: 3; Second Hand Exposure: No; Do You Dip or Chew Tobacco: Yes; Hx Alcohol Use: No Hx Substance Use: No Preferred Language: [place] Islander Communication Ability: Effective Banquet 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 Required: No Beliefs That Will Affect Care: None marital status: Life Partner Current Living Situation: Alone Other Information That Helps Us Care for You: No Feels Safe at Home: Yes Assistive Devices: Hearing Aid - Bilateral Review of Systems 2 Review of Systems: All systems reviewed & are unremarkable except as noted in HPI & below Physical Exam 2 Constitutional: well developed, well nourished, average body habitus, + frail appearing and cooperative; no acute distress Eyes: EOM intact bilaterally ENMT: Mouth: + dry oral mucous membranes Respiratory: normal respiratory effort Auscultation: + diminished lung sounds, + rhonchi and + wheezes (exp occasional) Cardiovascular: Rate/Rhythm: regular rate and regular rhythm Extremities: n o edema Gastrointestinal (Abdomen): Inspection/Auscultation: normal bowel sounds P ercussion/Palpation: abdomen soft; abdomen nontender Musculoskeletal: Extremities: strength 5/5 throughout Skin: no rashes, warm and dry Neurologic: blair, fluent speech, no tremor Results & Data Vital Signs (Past 12 Hours) Vital Signs Temp Pulse Pulse Pulse Resp BP Pulse Ox 04/07/25 08:27 36.6 C 72 20 130/72 94 04/07/25 05:00 36.5 C 70 18 127/80 94 04/07/25 01:29 72 04/07/25 01:25 04/07/25 01:25 36.5 C 18 138/81 96 04/07/25 00:50 70 18 122/64 97 04/06/25 22:57 74 22 140/89 96 O2 Del Method 04/07/25 08:27 Room Air 04/07/25 05:00 Room Air 04/07/25 01:29 04/07/25 01:25 Room Air 04/07/25 01:25 Room Air 04/07/25 00:50 Room Air 04/06/25 22:57 Room Air Laboratory Results 04/07/25 07:01 04/07/25 07:01 Diagnostic Findings Chest x-ray without acute pulmonary disease
--- NOTE | 2025-04-07 11:22 | Electrocardiogram Report ---
Test Reason : Blood Pressure : */* mmHG Vent. Rate : 75 BPM Atrial Rate : 75 BPM P-R Int : 138 ms QRS Dur : 176 ms QT Int : 510 ms P-R-T Axes : * -64 136 degrees QTcB Int : 569 ms AV dual-paced rhythm with frequent ventricular-paced complexes and with frequent Premature ventricula r complexes Abnormal ECG When compared with ECG of 21-Jan-2025 11:57, Vent. rate has decreased by 7 bpm Confirmed by Mike Montenegro ([id number]) on 04/07/2025 11:22:03 AM Referred By: REFERRED SELF Confirmed By: Mike Montenegro
[2025-04-07] MEDS: ALBUT/IPRATROP 3MG/0.5MG NEB 3 ML VIAL NEB PRN (11:59)
[2025-04-07] MEDS: DEXTROSE 5% 1,000 ML IV STA (13:13)
--- NOTE | 2025-04-07 13:15 | Hospitalist Progress Note ---
Date of Service April 07, 2025 Assessment & Plan (1) Hyponatremia: Plan: Hypoosmolar hyponatremia Neck and posterior shoulder pain possibly from uncontrolled hypertension/ MSK - currently resolved Troponin elevation secondary to uncontrolled hypertension Admitted to med/tele Careful correction of sodium monitor serum sodium response to initial fluid bolus administered at the ER Hyponatremia workup Nephrology consulted - as current Na 135 - pt was started on D5W, re-check BMP at 3pm and 9pm Titrate home BP meds - currently BP on lower side, cont. to closely monitor Repeat troponin decreased to low 20s, pt denies any chest pain hx CAD status post stent valvular heart disease (moderate MR/mild TTE 2024) complete heart block status post PPM hyperlipidemia, on statin Rx AAA status post surgery COPD, pulmonary hypertension, pulmonary status at baseline hx cerebral aneurysm as per records, no recent follow-up with [facility] neurosurgery hx seizure disorder, stable on Keppra mild cognitive impairment as per records, patient mentating well chronic anemia, hemoglobin at baseline Subclinical hypothyroidism, Recheck TSH outpatient next month past tobacco abuse DVT prophylaxis. Lovenox subcu Full code Patient's daughter - Ms. Essie Sauceda, contact #[phone]. Admission and Anticipated Discharge Date Admission Date: April 06, 2025 Subjective Pt seen in follow up of hyponatremia, neck/ shoulder pain Currently sitting up in chair in NAD Reports no neck or shoulder pain, says after he takes medications for it, it does not bother him Says he came to ED as he felt wobbly. In ED found to be hyponatremic. Currently denies fever, chills, chest pain, abd. pain, DAVIS, n/v. Says after he was walking in hallway he was little short of breath, he says he uses albuterol at home. Says he did not feel "wobbly" anymore. Review of Systems Review of Systems: All systems reviewed & are unremarkable except as noted in Subjective Physical Exam Physical Exam: GENERAL: WD/WN elderly M in NAD SKIN: Pallor,, warm HEENT: NC/AT. Pale palpebral conjunctivae, no ptosis NECK : Supple, no tenderness CHEST : Decreased breath sounds, no tenderness HEART : RRR, systolic murmur ABDOMEN: Soft, nontender EXTREMITIES : No LE swelling, moves extremities NEUROLOGIC : awake, alert, answers appropriately, very hard of hearing, no facial asymmetry, speech fluent, moves extremities Results & Data Results & Data Vital Signs (Past 12 Hours) Vital Signs Temp Pulse Pulse Pulse Resp BP Pulse Ox 04/07/25 12:20 36.3 C L 72 20 110/52 L 96 04/07/25 11:59 71 16 94 04/07/25 08:27 36.6 C 72 20 130/72 94 04/07/25 08:00 04/07/25 05:00 36.5 C 70 18 127/80 94 04/07/25 01:29 72 04/07/25 01:25 04/07/25 01:25 36.5 C 18 138/81 96 O2 Del Method 04/07/25 12:20 Room Air 04/07/25 11:59 Room Air 04/07/25 08:27 Room Air 04/07/25 08:00 Room Air 04/07/25 05:00 Room Air 04/07/25 01:29 04/07/25 01:25 Room Air 04/07/25 01:25 Room Air Laboratory Results 04/07/25 04/06/25 04/06/25 Range/Units 07:01 23:03 22:50 WBC 6.79 (4.8-10.8) K/ul RBC 4.80 (4.70-6.10) M/uL Hgb 10.8 L (14.0-18.0) g/dl Hct 35.2 L (42.0-52.0) % MCV 73.3 L (80.0-100.0) fL MCH 22.5 L (25.0-34.0) pg MCHC 30.7 L (32.0-36.0) g/dL RDW Std Deviation 42.2 (36.4-46.3) fL RDW Coeff of Gibson 16.3 H (11.5-14.5) % Plt Count 264 (130-400) K/uL MPV 10.1 (9.4-12.4) fL Immature Gran % (Auto) 1.5 % Neut % (Auto) 62.0 % Lymph % (Auto) 14.0 % Jay % (Auto) 17.1 % Eos % (Auto) 4.7 % Baso % (Auto) 0.7 % Neut # (Auto) 4.21 (1.40-6.50) K/uL Lymph # (Auto) 0.95 L (1.20-3.40) K/uL Jay # (Auto) 1.16 H (0.11-0.59) K/uL Eos # (Auto) 0.32 (0.00-0.50) K/uL Baso # (Auto) 0.05 (0.00-0.20) K/uL Immature Gran # (Auto) 0.10 (0.01-0.20) K/uL Sodium 135 L 128 L (136-145) mmol/L Potassium 4.4 (3.5-5.1) mmol/L Chloride 102 (98-107) mmol/L Carbon Dioxide 27 (21-32) mmol/L Anion Gap 6 (3-11) BUN 12 (6-23) mg/dl Creatinine 1.15 (0.6-1.4) mg/dl Est Cr Clr Drug Dosing 51.1 ml/min eGFR 63.54 BUN/Creatinine Ratio 10.4 (10-20) Glucose 81 (70-99(Fasting)) mg/dl Osmolality 267 L (280-300) mOsm/kg Calcium 8.7 (8.6-10.3) mg/dl Magnesium (1.7-2.4) mg/dl Total Bilirubin (0.2-1.0) mg/dl AST (13-39) U/L ALT (7-52) U/L Alkaline Phosphatase (34-104) U/L Total Creatine Kinase 352 H (30-223) U/L Troponin I High Sens 21.7 H (0-20) pg/ml Total Protein (6.0-8.3) gm/dl Albumin (3.4-5.0) gm/dl Globulin (2.5-4.0) gm/dl Albumin/Globulin Ratio (0.9-2) TSH (0.300-4.500) uIu/ml Free T4 (0.61-1.60) ng/dl Urine Color Urine Appearance (Clear) Urine pH (4.5-7.5) Ur Specific [place] (1.000-1.030) Urine Protein (Negative) Urine Glucose (UA) (Negative) Urine Ketones (Negative) Urine Blood (Negative) Urine Nitrite (Negative) Urine Bilirubin (Negative) Urine Urobilinogen (Negative) Ur Leukocyte Esterase (Negative) Urine Osmolality (500-800) mOsm/kg Ur Random Sodium mmol/L Urine Comment 04/06/25 04/06/25 Range/Units 21:57 21:08 WBC 7.20 (4.8-10.8) K/ul RBC 5.33 (4.70-6.10) M/uL Hgb 12.5 L (14.0-18.0) g/dl Hct 38.9 L (42.0-52.0) % MCV 73.0 L (80.0-100.0) fL MCH 23.5 L (25.0-34.0) pg MCHC 32.1 (32.0-36.0) g/dL RDW Std Deviation 41.6 (36.4-46.3) fL RDW Coeff of [place] 16.3 H (11.5-14.5) % Plt Count 335 (130-400) K/uL MPV 10.3 (9.4-12.4) fL Immature Gran % (Auto) 1.5 % Neut % (Auto) 68.6 % Lymph % (Auto) 15.4 % Jay % (Auto) 10.1 % Eos % (Auto) 3.8 % Baso % (Auto) 0.6 % Neut # (Auto) 4.94 (1.40-6.50) K/uL Lymph # (Auto) 1.11 L (1.20-3.40) K/uL Jay # (Auto) 0.73 H (0.11-0.59) K/uL Eos # (Auto) 0.27 (0.00-0.50) K/uL Baso # (Auto) 0.04 (0.00-0.20) K/uL Immature Gran # (Auto) 0.11 (0.01-0.20) K/uL Sodium 125 L (136-145) mmol/L Potassium 4.5 (3.5-5.1) mmol/L Chloride 91 L (98-107) mmol/L Carbon Dioxide 26 (21-32) mmol/L Anion Gap 8 (3-11) BUN 17 (6-23) mg/dl Creatinine 1.37 (0.6-1.4) mg/dl Est Cr Clr Drug Dosing 42.9 ml/min eGFR 51.50 BUN/Creatinine Ratio 12.4 (10-20) Glucose 83 (70-99(Fasting)) mg/dl Osmolality (280-300) mOsm/kg Calcium 9.3 (8.6-10.3) mg/dl Magnesium 2.3 (1.7-2.4) mg/dl Total Bilirubin 0.7 (0.2-1.0) mg/dl AST 32 (13-39) U/L ALT 14 (7-52) U/L Alkaline Phosphatase 159 H (34-104) U/L Total Creatine Kinase 515 H (30-223) U/L Troponin I High Sens 23.5 H (0-20) pg/ml Total Protein 8.1 (6.0-8.3) gm/dl Albumin 4.5 (3.4-5.0) gm/dl Globulin 3.6 (2.5-4.0) gm/dl Albumin/Globulin Ratio 1.3 (0.9-2) TSH 6.483 H (0.300-4.500) uIu/ml Free T4 0.79 (0.61-1.60) ng/dl Urine Color Yellow Urine Appearance Clear (Clear) Urine pH 7.0 (4.5-7.5) Ur Specific [place] 1.004 (1.000-1.030) Urine Protein Negative (Negative) Urine Glucose (UA) Negative (Negative) Urine Ketones Negative (Negative) Urine Blood Negative (Negative) Urine Nitrite Negative (Negative) Urine Bilirubin Negative (Negative) Urine Urobilinogen Negative (Negative) Ur Leukocyte Esterase Negative (Negative) Urine Osmolality 98 L (500-800) mOsm/kg Ur Random Sodium 22 mmol/L Urine Comment Medications Administered Current Inpatient Medications Acetaminophen (Acetaminophen 325 Mg Tab) 650 mg PO QID PRN PRN Reason: pain/fever Stop: 05/06/25 23:47 Albuterol (Albut/Ipratrop 3mg/0.5mg Neb 3 Ml Vial) 3 ml NEB Q6R PRN; Protocol PRN Reason: Shortness Of Breath Or Wheezing Stop: 05/07/25 10:36 Last Admin: 04/07/25 11:59 Dose: 3 ml Amlodipine Besylate (Amlodipine Besylate 5 Mg Tab) 5 mg PO [facility] Stop: 05/07/25 08:59 Last Admin: 04/07/25 09:14 Dose: 5 mg Aspirin (Aspirin 81 Mg Ectab) 81 mg PO [facility] Stop: 05/07/25 08:59 Last Admin: 04/07/25 09:14 Dose: 81 mg Atorvastatin Calcium (Atorvastatin 40 Mg Tab) 80 mg PO HS [facility] Stop: 05/07/25 20:59 Enoxaparin Sodium (Enoxaparin Inj 40 Mg/0.4 Ml Syr) 40 mg SQ QAM [facility] Stop: 05/07/25 08:59 Last Admin: 04/07/25 09:14 Dose: 40 mg Promethazine HCl (Phenergan) 6.25 mg in 50.25 mls @ 201 mls/hr IV Q6H PRN PRN Reason: Nausea And Vomiting Stop: 05/06/25 23:47 Dextrose (D5w) 1,000 mls @ 80 mls/hr IV .[id number] STA Stop: 04/08/25 00:03 Levetiracetam (Levetiracetam 500 Mg Tab) 1,000 mg PO BID [facility] Stop: 05/07/25 08:59 Last Admin: 04/07/25 09:14 Dose: 1,000 mg Oxycodone HCl (Oxycodone Hcl Ir 5 Mg Tab (Immediate Release)) 5 mg PO Q4H PRN PRN Reason: Pain Stop: 04/20/25 23:47 Pantoprazole Sodium (Pantoprazole 40 Mg Tab) 40 mg PO QAM [facility] Stop: 05/07/25 08:59 Last Admin: 04/07/25 09:14 Dose: 40 mg
[2025-04-07 16:00] LABS: Anion Gap 6.0 (3-11); Blood Urea Nitrogen 12.0 mg/dl (6-23); Calcium 8.7 mg/dl (8.6-10.3); Carbon Dioxide 25.0 mmol/L (21-32); Chloride 101.0 mmol/L (98-107); Creatinine Clr Calc Pharmacy 47.4 ml/min; Glucose 96.0 mg/dl (70-99(Fasting)); Potassium 4.8 mmol/L (3.5-5.1); Sodium 132.0 mmol/L (136-145)
--- NOTE | 2025-04-07 17:17 | Communication Note ---
Date of Service: April 07, 2025 1500 BMP reviewed >> sNa 132, K 4.8; crea 1.2; remains on RA w/ SBP 123/68 Acceptable decline in sodium > target is no more than 131 this evening at 2100 -continue D5W same rate 50 mL hourly >>at 2100 if target met, stop IVF; if target not met, continue IVF until 0100 then stop Will update hospitalist and ask her/golf cart attendant to f/u on 2100 labs w/ actions as below.
[2025-04-07] MEDS: ATORVASTATIN 40 MG TAB PO SCH (20:20)
[2025-04-07 21:35] LABS: Anion Gap 6.0 (3-11); Blood Urea Nitrogen 12.0 mg/dl (6-23); Calcium 8.7 mg/dl (8.6-10.3); Carbon Dioxide 24.0 mmol/L (21-32); Chloride 98.0 mmol/L (98-107); Creatinine Clr Calc Pharmacy 49.8 ml/min; Glucose 92.0 mg/dl (70-99(Fasting)); Potassium 4.6 mmol/L (3.5-5.1); Sodium 128.0 mmol/L (136-145)
[2025-04-08 06:48] LABS: Hematocrit (blood only) 34.3 % (42.0-52.0); Hemoglobin 10.7 g/dl (14.0-18.0); Mean Corpuscular Hemoglobin 22.9 pg (25.0-34.0); Mean Corpuscular Volume 73.3 fL (80.0-100.0); Platelet Count 268 K/uL (130-400); RDW Standard Deviation 42.5 fL (36.4-46.3); Red Blood Count 4.68 M/uL (4.70-6.10); White Blood Count 6.17 K/ul (4.8-10.8)
[2025-04-08 07:19] LABS: Anion Gap 6.0 (3-11); Blood Urea Nitrogen 9.0 mg/dl (6-23); Calcium 8.6 mg/dl (8.6-10.3); Carbon Dioxide 25.0 mmol/L (21-32); Chloride 101.0 mmol/L (98-107); Creatinine Clr Calc Pharmacy 52.5 ml/min; Glucose 116.0 mg/dl (70-99(Fasting)); Magnesium 2.2 mg/dl (1.7-2.4); Potassium 4.3 mmol/L (3.5-5.1); Sodium 132.0 mmol/L (136-145)
--- NOTE | 2025-04-08 07:43 | Nephrology Progress Note ---
Date of Service April 08, 2025 Assessment & Plan (1) Hyponatremia: Plan: Hypotonic hyponatremia from polydipsia on high fluid/ lower solute diet. Presenting sodium 125; correcting too rapidly overnight to 135 within 10 hours by AM 8/15; responded well toD5W and sNa 132 this AM, K 4.43. May have had symptoms initially with frequent falls. 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 Admission and Anticipated Discharge Date Admission Date: April 06, 2025 Subjective cxr unchanged; D5W stopped this am; no shortness of breath no nausea no edema. Changed to regular diet and eating heartily. Review of Systems 2 Review of Systems: All systems reviewed & are unremarkable except as noted in Subjective Physical Exam 2 Constitutional: well developed (Sitting up on side of bed on room air WOLFING down midday meal), well nourished, average body habitus, + frail appearing and cooperative; no acute distress Eyes: EOM intact bilaterally ENMT: Mouth: + dry oral mucous membranes Respiratory: normal respiratory effort Auscultation: + diminished lung sounds, + rhonchi and + wheezes (exp occasional) Cardiovascular: Rate/Rhythm: regular rate and regular rhythm Extremities: n o edema Gastrointestinal (Abdomen): Inspection/Auscultation: normal bowel sounds P ercussion/Palpation: abdomen soft; abdomen nontender Musculoskeletal: Extremities: strength 5/5 throughout Skin: no rashes, warm and dry Results & Data Vital Signs (Past 12 Hours) Vital Signs Temp Pulse Pulse Resp BP Pulse Ox Pulse Ox 04/08/25 02:32 36.6 C 70 18 119/72 96 04/08/25 01:59 98 04/07/25 23:25 66 20 98 04/07/25 22:44 36.6 C 89 18 152/79 H 95 04/07/25 21:45 78 O2 Del Method O2 Del Method 04/08/25 02:32 Room Air 04/08/25 01:59 Room Air 04/07/25 23:25 Room Air 04/07/25 22:44 Room Air 04/07/25 21:45 Laboratory Results 04/08/25 05:57 04/08/25 05:57
[2025-04-08 12:22] VITALS: BP 155/83; RESP 18; TEMP 98.2; O2SAT 95
--- NOTE | 2025-04-08 12:30 | Discharge Summary ---
Discharge Summary Date of Service April 08, 2025 Principal Dx & Hospital Course #1 = Principal Diagnosis (1) Hyponatremia: Hypoosmolar hyponatremia Neck and posterior shoulder pain possibly from uncontrolled hypertension/ MSK - currently resolved Troponin elevation secondary to uncontrolled hypertension Admitted to med/tele Careful correction of sodium monitor serum sodium response to initial fluid bolus administered at the ER Hyponatremia workup Nephrology consulted - as current Na 135 - pt was started on D5W, re-check BMP at 3pm and 9pm Titrate home BP meds - currently BP on lower side, cont. to closely monitor Repeat troponin decreased to low 20s, pt denies any chest pain hx CAD status post stent valvular heart disease (moderate MR/mild TTE 2024) complete heart block status post PPM hyperlipidemia, on statin Rx AAA status post surgery COPD, pulmonary hypertension, pulmonary status at baseline hx cerebral aneurysm as per records, no recent follow-up with [facility] neurosurgery hx seizure disorder, stable on Keppra mild cognitive impairment as per records, patient mentating well chronic anemia, hemoglobin at baseline Subclinical hypothyroidism, Recheck TSH outpatient next month past tobacco abuse DVT prophylaxis. Lovenox subcu Full code Patient's daughter - Ms. Essie Sauceda, contact #[phone]. Notes For Next Care Provider Patient is 84 yo male with pmhx of CAD status post stent, valvular heart disease (moderate MR/mild TTE 2024), complete heart block status post PPM, hypertension, hyperlipidemia, AAA status post surgery, COPD, pulmonary hypertension, cerebral aneurysm as per records, seizure disorder, mild cognitive impairment as per records, chronic anemia (baseline hemoglobin 11-12), past tobacco/alcohol abuse who prsented for neck pain and found to have hyponatremia. On medicine, nephrology consulted, found to have hypoosmolar hyponatremia 2/2 polydipsia, improved with fluid restriction and dietary changes. On 04/08/2025 patient medically stable for discharge home. To do: [ ] BMP orders weekly for 3 weeks [ ] education with patient regarding fluid restriction and proper diet -no incidentals noted on imaging Medication Changes From Visit -oxycodone prn for pain (small prescription, avoid NSAIDS given hyponatremia) Admission HPI Per Admitting Provider History obtained from patient, family, and records. Medical history significant for CAD status post stent, valvular heart disease (moderate MR/mild TTE 2024), complete heart block status post PPM, hypertension, hyperlipidemia, AAA status post surgery, COPD, pulmonary hypertension, cerebral aneurysm as per records, seizure disorder, mild cognitive impairment as per records, chronic anemia (baseline hemoglobin 11-12), past tobacco/alcohol abuse. Last confinement August 2024 for breakthrough seizures. Patient with posterior neck pain and bilateral shoulder pain the last few days. No recent trauma. Denies headache symptoms. Denies chest pain. Usual SOB from COPD. No unusual cough symptoms. Compliant with home medications. Does not check blood pressure at home. Seizures well-controlled as per daughter. Denies inordinate water intake. SBP 160s upon arrival at the ER. Patient currently comfortable. Medical History as above Surgical History : Vascular procedures AAA repair, clubfoot surgery, back surgery, throat surgery, PPM Family History : Lung cancer, DM, stroke, hypertension Personal/Social history : Past tobacco/alcohol abuse, retired from [employer] work Discharge Exam Gen: A&O 3 NAD HEENT: NCAT, EOMI, not icteric. External ears normal. No rhinorrhea. Moist mucous membranes. Dentition changes noted Neck: Supple, full range of motion, no observable masses, No meningeal sign. Lungs: No Respiratory distress. CV: RRR, no edema. Abdomen: Soft, nondistended, No rebound tenderness. MSK: No joint swelling, no redness. Skin: No rashes, petechiae, lesions. Normal color per patient. Neuro: Normal Gait, Grossly intact. Psych: Appropriate for situation. Updated Medication List Medication Instructions Recorded Confirmed Type omeprazole 40 mg capsule,delayed 40 mg PO QAM 04/30/20 04/06/25 History release nitroglycerin 0.4 mg sublingual 0.4 mg sublingual Q5M PRN chest 09/16/22 04/06/25 Rx tablet pain #25 tabs aspirin 81 mg tablet,delayed 81 mg PO QAM 07/25/24 04/06/25 History release (Adult Low Dose Aspirin) levetiracetam 500 mg tablet 1,000 mg (2 x 500 mg) PO BID 30 09/01/24 04/06/25 Rx (Keppra) days #120 tabs amlodipine 5 mg tablet 5 mg PO QAM #90 tabs 09/21/24 04/06/25 Rx atorvastatin 80 mg tablet 80 mg PO HS #90 tabs 10/06/24 04/06/25 Rx nebulizer accessories #1 ea 11/14/24 12/29/24 Rx ipratropium 0.5 mg-albuterol 3 mg 3 ml inhalation QID PRN wheezing 03/03/25 04/06/25 Rx (2.5 mg base)/3 mL nebulization #180 mL soln furosemide 40 mg tablet 40 mg PO 2XWK PRN weight gain > 03/09/25 04/06/25 Rx 185 #60 tabs meloxicam 7.5 mg tablet 7.5 mg PO BID PRN Pain 04/06/25 04/06/25 History oxycodone 5 mg tablet 5 mg PO Q4H PRN severe pain (scale 04/08/25 Rx score 7-10) #14 tabs Hospital Stay Data Consultations 04/06/25 23:39 ED Decision to Admit Stat 04/07/25 08:18 Consult Nephrology Routine Pending Results Patient Have Any Pending Studies at Discharge: Yes Discharge Instructions Given to Patient (Per Discharging Provider) From Nephrology: -2L/ 60 oz daily fluid limit (this may take work/cooperation/oversight w/ family/friends) -protein shakes don't count toward fluid limit -ensure/encourage 2 full meals daily -continue low sodium diet -BMP weekly x 3 to be ordered / followed by PCP >> if sodium normalizes, PCP may liberalize FR gradually FOLLOW UP APPTS: -[facility] d/c appt w/ me madonna mckeon in 6 wks ONLY if pcp finds ongoing hyponatremia My Instructions: 1. Follow up with PCP and likely nephrology (pending PCP visits). 2. Get BMP weekly for 3 weeks, will be ordered by PCP. 3. Please follow fluid restriction and diet as above. Final Diagnosis: hypoosmolar hyponatremia from excess fluid intake Total Time Total Time Spent Total Time Spent (In Minutes): I spent a total of 35 minutes in direct patient care, including [id number] time with the patient and/or family, reviewing medical records, ordering and reviewing diagnostic tests, and coordinating care with other healthcare providers. This time includes: history taking, physical examination, medical decision making, counseling, ECG interpretation, imaging interpretation, lab interpretation, orders, and education, excluding time spent in the performance of separately billed services.
[2025-04-08 15:48] VITALS: PULSE 71
--- NOTE | 2025-04-10 07:49 | Emergency Department Note ---
ED Visit Note I was consulted by the Advanced Practice Provider KAREN Gomez. I performed a substantive portion of the visit including all aspects of medical decision making. .
== END 2025-04-08 15:48 | disposition home or self-care (01) | DRG 641 ==
LOC: ED 18:47 → 2S 23:42 → SUATTDRO 23:42 → 2S 04-07 02:04